=== PATIENT | female | born 1990 ===

== ENCOUNTER 2020-05-27 08:43 | Outpatient (REF) | payer SELFPAY | END 2020-05-27 08:44 | disposition home or self-care (01) | LOC: HO.LAB 08:43 | PROVIDERS: PCP Internal Medicine; Visit Provider Internal Medicine | DX: Z20.828 Contact with and (suspected) exposure to other viral communicable diseases (principal) | CPT/HCPCS: 87635 ==

== ENCOUNTER 2020-06-09 08:44 | Emergency (ER) | payer MEDICAID, SELFPAY ==
[2020-06-09 08:52] VITALS: BP 119/80; PULSE 84; RESP 16; TEMP 36.9; O2SAT 97; BMI 29.5
--- NOTE | 2020-06-09 09:09 | ED.NAVMDI ---
HPI - Nausea/Vomiting/Diarrhea General Chief complaint: Nausea/Vomiting/Diarrhea Stated complaint: covid + multiple complaints Time Seen by Provider: 06/09/20 08:50 Source: patient Mode of arrival: ambulatory Limitations: no limitations History of Present Illness HPI Narrative: 30 y/o female who was diagnosed with COVID-19 on 05/27 is presenting with 3 days of nausea and vomiting. She states when she was diagnosed with COVID she was feverish, coughing, short of breath and having muscle aches. It has now progressed to upset stomach and N/V for the last 3 days. Everyone else in the house is sick with various symptoms of COVID as well. She has been unable to tolerate food/drink by mouth for the last 2 days. She denies fevers, admits to chills and generalized weakness. MD elicited complaint: nausea and vomiting Onset (ago): day(s) (3) Description of vomiting: bilious Associated nausea: Yes Associated abdominal pain: Yes Location of pain: suprapubic Pain consistency: intermittent Severity: mild Quality: cramping Exacerbating factors: eating Relieving factors: none Context: sick contacts Associated symptoms: myalgias, fever/chills, headaches and weakness Treatment prior to arrival: none Related Data Previous Rx's Medication Instructions Recorded cephalexin [Keflex] 500 mg PO Q8H #15 cap 06/09/20 ondansetron HCl [Zofran] 4 mg PO Q8H PRN #30 tab 06/09/20 Allergies Allergy/AdvReac Type Severity Reaction Status Date / Time No Known Allergies Allergy Unverified 05/06/20 16:56 Review of Systems Review of Systems: Constitutional: No Fever, + Chills ENT/Mouth: No sore throat, No Rhinorrhea, No Swallowing Difficulty Eyes: No Eye Pain, No Swelling, No Redness Cardiovascular: No Chest Pain, No SOB, No Orthopnea, No Edema Respiratory: No Cough, No Sputum, No Wheezing, No dyspnea Gastrointestinal: + Nausea, + Vomiting, No Diarrhea, + abdominal Pain, No Hematochezia, No Melena Genitourinary: No Dysuria, No Urinary Frequency, No Hematuria Musculoskeletal: No joint pain, No Myalgias Skin: No Skin Lesions, No rash Neuro: + Weakness, No Numbness, No Dizziness, + Headache Psych: No Anxiety/Panic, No Depression Heme/Lymph: No Bruising, No Lymphadenopathy Endocrine: No Polyuria, No Polydipsia Gastrointestinal: Gastrointestinal: Reports nausea PMFSH Past Medical History Attestation statement: The following information was validated with the patient. Medical History (Updated 06/09/20 @ 10:04 by OLY Marrufo) Anemia Social History Social History Alcohol intake: unknown Smoking Status: Former smoker Use of substances other than those prescribed or required for medical reasons: Yes Substance Use Type: Marijuana Substance Use Frequency: Socially Last Used Substance: Days (ago) Advance Directives: No Advance Directives Information Provided: No Physical Exam Vital Signs: Vital Signs: Vital Signs Temp Pulse Resp BP Pulse Ox 06/09/20 09:33 78 H 06/09/20 08:52 98.4 F 84 16 119/80 97 Body Mass Index 29.5 Appearance: Alert. Oriented X3. No acute distress. Eyes: Pupils equal, round and reactive to light. ENT: Pharynx normal. Neck: Normal inspection. Neck supple. CVS: Normal heart rate and rhythm. Pulses normal. Respiratory: No respiratory distress. Breath sounds normal. Abdomen: Soft with mild lower abdominal tenderness, no rebound or guarding. normal +BS x4 Skin: Skin warm and dry. Normal skin color. Normal skin turgor. No rashes. Extremities: No lower extremity edema. Neuro: Oriented X 3. No motor deficit. No sensory deficit. Course Course Course Narrative: 30 y/o COVID positive patient with N/V x3 days, mild lower abdominal cramping. VSS and she appears well on arrival. Low suspicion for acute intra-abdominal pathology such as appendicitis or cholecystitis. She has not had her menses in ?6 weeks so she may be . Urine test pending as well as labs to assess for dehydration and electrolyte derangements. Reevaluation(s) Reevaluation #1: Urine test is positive with possible infection as well. Will treat with Keflex in the setting of positive . Patient informed of both - she is elated to be , she states she has a history of PCOS and has had difficulty conceiving since her 1st 11 years ago. She will follow up with OB and start taking vitamins. She feels improved after zofran and IVF. She is stable for discharge. MDM - Nausea/Vomiting/Diarrhea Lab Data Result diagrams: 06/09/20 09:20 06/09/20 09:20 Labs: Lab Results 06/09/20 06/09/20 06/09/20 Range/Units 09:08 09:08 09:20 WBC 8.9 (4.8-10.8) X10*3/uL RBC 4.83 (4.20-5.50) X10*6/uL Hgb 14.5 (12.0-16.0) g/dl Hct 42.0 (37-47) % MCV 87.0 (80-98) fL MCH 30.0 (27.0-33.0) pg MCHC 34.5 (31.0-35.0) g/dl RDW 11.6 (11.0-16.0) % Plt Count 252 (160-400) X10*3/uL MPV 9.8 (9.4-12.3) fL Immature Gran % (Auto) 0.6 H (0.0-0.4) % Neut % (Auto) 69.2 (45-73) % Lymph % (Auto) 23.3 (20-40) % [place] % (Auto) 5.7 (2-11) % Eos % (Auto) 0.8 (0-4) % Baso % (Auto) 0.4 (0-2) % Lymph # (Auto) 2.1 (1.2-4.9) X10*3/uL [place] # (Auto) 0.5 (0.1-1.2) X10*3/uL Eos # (Auto) 0.1 (0.0-0.4) X10*3/uL Baso # (Auto) 0.0 (0.0-0.2) X10*3/uL Abs Immat Gran (auto) 0.05 H (0.00-0.03) X10*3/uL Absolute Neuts (auto) 6.2 (2.0-8.3) X10*3/uL Absolute Nucleated RBC 0.000 (0.0-0.012) X10*3/uL Nucleated RBC % (auto) 0.0 (0.0-0.2) /100WBC Sodium (135-145) mmol/L Potassium (3.3-5.1) mmol/l Chloride (96-108) mmol/L Carbon Dioxide (22-29) mmol/L Anion Gap (12-20) BUN (9-16) mg/dL Creatinine (0.5-1.4) mg/dL Estim Creat Clear Calc Estimated GFR Random Glucose (60-115) mg/dL Calcium (8.4-10.2) mg/dL Total Bilirubin (0.0-1.0) mg/dL Direct Bilirubin (0.0-0.5) mg/dL AST (5-31) U/L ALT (0-31) U/L Alkaline Phosphatase (39-117) U/L Total Protein (6.5-8.0) g/dL Albumin (3.5-5.0) g/dL Lipase (8-78) U/L Urine Color YELLOW Urine Appearance CLOUDY Urine pH 8.5 H (5.0-8.0) Ur Specific [place] 1.015 (1.005-1.025) Urine Protein TRACE (NEG-TRACE) MG/DL Urine Glucose (UA) NEG (NEG) MG/DL Urine Ketones NEG (NEG) MG/DL Urine Blood NEG (NEG) Urine Nitrite NEG (NEG) Ur Leukocyte Esterase 3+ H (NEG) Urine RBC 0 (0) /HPF Urine WBC 15-29 H (0-4) /HPF Ur Squamous Epith Cells 3+ /LPF Amorphous Sediment 3+ /LPF Urine Bacteria NONE /LPF Urine Test POSITIVE H (NEGATIVE) 06/09/20 Range/Units 09:20 WBC (4.8-10.8) X10*3/uL RBC (4.20-5.50) X10*6/uL Hgb (12.0-16.0) g/dl Hct (37-47) % MCV (80-98) fL MCH (27.0-33.0) pg MCHC (31.0-35.0) g/dl RDW (11.0-16.0) % Plt Count (160-400) X10*3/uL MPV (9.4-12.3) fL Immature Gran % (Auto) (0.0-0.4) % Neut % (Auto) (45-73) % Lymph % (Auto) (20-40) % [place] % (Auto) (2-11) % Eos % (Auto) (0-4) % Baso % (Auto) (0-2) % Lymph # (Auto) (1.2-4.9) X10*3/uL [place] # (Auto) (0.1-1.2) X10*3/uL Eos # (Auto) (0.0-0.4) X10*3/uL Baso # (Auto) (0.0-0.2) X10*3/uL Abs Immat Gran (auto) (0.00-0.03) X10*3/uL Absolute Neuts (auto) (2.0-8.3) X10*3/uL Absolute Nucleated RBC (0.0-0.012) X10*3/uL Nucleated RBC % (auto) (0.0-0.2) /100WBC Sodium 136 (135-145) mmol/L Potassium 3.9 (3.3-5.1) mmol/l Chloride 104 (96-108) mmol/L Carbon Dioxide 25 (22-29) mmol/L Anion Gap 11 L (12-20) BUN 7 L (9-16) mg/dL Creatinine 0.68 (0.5-1.4) mg/dL Estim Creat Clear Calc 133.7 Estimated GFR > 60 Random Glucose 118 H (60-115) mg/dL Calcium 9.0 (8.4-10.2) mg/dL Total Bilirubin 1.9 H (0.0-1.0) mg/dL Direct Bilirubin 0.7 H (0.0-0.5) mg/dL AST 38 H (5-31) U/L ALT 68 H (0-31) U/L Alkaline Phosphatase 57 (39-117) U/L Total Protein 7.0 (6.5-8.0) g/dL Albumin 4.5 (3.5-5.0) g/dL Lipase 31 (8-78) U/L Urine Color Urine Appearance Urine pH (5.0-8.0) Ur Specific [place] (1.005-1.025) Urine Protein (NEG-TRACE) MG/DL Urine Glucose (UA) (NEG) MG/DL Urine Ketones (NEG) MG/DL Urine Blood (NEG) Urine Nitrite (NEG) Ur Leukocyte Esterase (NEG) Urine RBC (0) /HPF Urine WBC (0-4) /HPF Ur Squamous Epith Cells /LPF Amorphous Sediment /LPF Urine Bacteria /LPF Urine Test (NEGATIVE) Discharge Plan Discharge Clinical Impression: Nausea and vomiting during Qualifiers: Weeks of gestation: unspecified Qualified Code(s): Z34.90 - Encounter for supervision of normal , unspecified, unspecified trimester UTI (urinary tract infection) Qualifiers: Urinary tract infection type: acute cystitis Hematuria presence: without hematuria Qualified Code(s): N30.00 - Acute cystitis without hematuria Patient Disposition: Home, Self-Care Instructions: Nausea and Vomiting in (ED), Urinary Tract Infection in (ED) Additional Instructions: Your test was positive today. You need to follow up with [facility]. Start taking vitamins. Your urine test also showed possible urinary tract infection so we started you on antibiotics for this. If you develop burning urination, urinary frequency or fevers despite antibiotics come back to the ER. If you are unable to tolerate food or drink by mouth due to persistent nausea and vomiting call 911 or come back to the ER for further evaluation. Prescriptions: New ondansetron HCl [Zofran] 4 mg tablet 4 mg PO Q8H PRN (Reason: nausea and vomiting) Qty: 30 RF: 0 cephalexin [Keflex] 500 mg capsule 500 mg PO Q8H Qty: 15 RF: 0 Referrals: Hernandez Thomas MD [Physician] - 1 week
[2020-06-09] MEDS: 0.9 % Sodium Chloride 1,000 ML 999 ML IVCONT (09:19)
[2020-06-09 09:26] LABS: MANUAL DIFF FLAG NO
[2020-06-09] MEDS: ondansetron HCL 4 MG/2 ML VIAL IVPUSH (09:26)
[2020-06-09 09:33] VITALS: RESP 78
[2020-06-09 09:33] LABS: Basophils Percent Auto 0.4 % (0-2); Eosinophils Absolute Auto 0.1 X10*3/uL (0.0-0.4); Eosinophils Percent Auto 0.8 % (0-4); Hemoglobin 14.5 g/dl (12.0-16.0); Imm Gran Abs Auto 0.05 X10*3/uL (0.00-0.03); Imm Gran Pct Auto 0.6 % (0.0-0.4); Lymphocytes Absolute Auto 2.1 X10*3/uL (1.2-4.9); Lymphocytes Percent Auto 23.3 % (20-40); Mean Corpuscular HGB Conc 34.5 g/dl (31.0-35.0); Mean Platelet Volume 9.8 fL (9.4-12.3); Monocytes Absolute Auto 0.5 X10*3/uL (0.1-1.2); Monocytes Percent Auto 5.7 % (2-11); Neutrophils Absolute Auto 6.2 X10*3/uL (2.0-8.3); Neutrophils Percent Auto 69.2 % (45-73); Platelet Count 252 X10*3/uL (160-400); Red Blood Count 4.83 X10*6/uL (4.20-5.50); Red Cell Distribution Width 11.6 % (11.0-16.0); White Blood Count 8.9 X10*3/uL (4.8-10.8)
[2020-06-09 09:39] LABS: Glucose Urine UA NEG (NEG); Leukocyte Esterase Urine 3+ (NEG); Nitrite Urine NEG (NEG); PH 8.5 (5.0-8.0); Specific Gravity - Urine 1.015 (1.005-1.025); UPreg QC Valid YES; Urine Blood NEG (NEG); Urine Ketones NEG (NEG); Urine Pregnancy POSITIVE (NEGATIVE); Urine Protein TRACE MG/DL (NEG-TRACE)
[2020-06-09 09:40] LABS: Appearance Urine CLOUDY; Color Urine YELLOW
[2020-06-09 09:46] LABS: RBC Urine 0 /HPF (0); Squamous Epithelial Cell Urine 3+ /LPF
[2020-06-09 09:47] LABS: Amorphous Sediment Urine 3+ /LPF
[2020-06-09 09:54] LABS: Alanine Aminotransferase 68 U/L (0-31); Albumin Level 4.5 g/dL (3.5-5.0); Alkaline Phosphatase 57 U/L (39-117); Anion Gap 11 (12-20); Aspartate Amino Transferase 38 U/L (5-31); Bilirubin Direct 0.7 mg/dL (0.0-0.5); Bilirubin Total 1.9 mg/dL (0.0-1.0); Blood Urea Nitrogen 7 mg/dL (9-16); Carbon Dioxide 25 mmol/L (22-29); Chloride 104 mmol/L (96-108); Creatinine Clr Calc Pharmacy 133.7; Estimated Glomerular Filt Rate > 60; Glucose Random 118 mg/dL (60-115); Lipase 31 U/L (8-78); Potassium 3.9 mmol/l (3.3-5.1); Sodium 136 mmol/L (135-145)
--- NOTE | 2020-06-09 09:57 | PC.NURSE ---
NO ACTIVE VOMITING, IV FLUIDS INFUSING PT UCG WAS + PT IS AWARE
--- NOTE | 2020-06-09 10:31 | PC.NURSE ---
iv fluids complete po challenge
--- NOTE | 2020-06-09 10:54 | PC.NURSE ---
TOLERATED PO INTAKE WITH SOME NAUSEA NO VOMITING
--- NOTE | 2020-06-09 10:57 | PC.NURSE ---
PT TOLERATED PO CHALLENGE WITH MILD NAUSEA PLAN IS FOR DISCHARGE FOLLOW UP WITH OB
== END 2020-06-09 11:12 | disposition home or self-care (01) ==
PROVIDERS: Physician Assistant; Emergency Provider Emergency Medicine; PCP Internal Medicine
DX: O23.41 Unspecified infection of urinary tract in pregnancy, first trimester (principal); O99.320 Drug use complicating pregnancy, unspecified trimester; F12.90 Cannabis use, unspecified, uncomplicated; Z3A.00 Weeks of gestation of pregnancy not specified; Z86.19 Personal history of other infectious and parasitic diseases; Z79.899 Other long term (current) drug therapy
CPT/HCPCS: 36415; 80048; 80076; 81001; 81025; 83690; 85025; 87086; 96361; 96374; 96375; 99284; J1885; J2405

== ENCOUNTER 2020-06-10 20:15 | Emergency (ER) | payer MEDICAID, SELFPAY ==
[2020-06-10 21:26] VITALS: BP 134/90; PULSE 77; RESP 18; TEMP 36.6; O2SAT 98; BMI 29.7
[2020-06-10 21:29] VITALS: BP 134/90; PULSE 80; RESP 18; TEMP 36.6; O2SAT 98
--- NOTE | 2020-06-10 21:43 | US_ITS ---
EXAMINATION: ULTRASOUND FIRST TRIMESTER CLINICAL INFORMATION: Pain. Concern for ectopic . COMPARISON: None. TECHNIQUE: Transabdominal and transvaginal imaging of the pelvis was performed. Transvaginal imaging was performed for further evaluation of the endometrium and adnexa. FINDINGS: The uterus measures 7.4 x 4.1 x 4.9 cm. An intrauterine gestational sac is identified with a mean sac diameter of 15 mm corresponding to 6 weeks 2 days. There is a faint decidual reaction identified. No pole is identified. There is no demonstrable yolk sac. heart rate is not identified. Both ovaries are of normal size and echogenicity. The right measures 2.9 x 2.4 x 2.3 cm. The left measures 3.3 x 2.8 x 3.5 cm. This measurement includes an approximately 16 mm corpus luteum. There is no pelvic free fluid. US/US OB <= 14 weeks fetus IMPRESSION: There is an intrauterine gestational sac with a faint decidual reaction. There is no pole or yolk sac. A pole is typically identified at this gestational sac size. As such, this raises the possibility of a missed , though continued follow-up and correlation with beta hCG is warranted. No adnexal mass lesions. No suspicion for ectopic .
[2020-06-10] MEDS: 0.9 % Sodium Chloride 500 ML 999 ML IVCONT ×2 (22:00)
[2020-06-10] MEDS: ondansetron HCL 4 MG/2 ML VIAL IVPUSH (22:00)
[2020-06-10 22:02] LABS: Basophils Absolute Auto 0.1 X10*3/uL (0.0-0.2); Basophils Percent Auto 0.7 % (0-2); Eosinophils Absolute Auto 0.1 X10*3/uL (0.0-0.4); Eosinophils Percent Auto 0.5 % (0-4); Hematocrit 41.1 % (37-47); Hemoglobin 14.3 g/dl (12.0-16.0); Imm Gran Abs Auto 0.04 X10*3/uL (0.00-0.03); Imm Gran Pct Auto 0.3 % (0.0-0.4); Lymphocytes Absolute Auto 2.9 X10*3/uL (1.2-4.9); Lymphocytes Percent Auto 22.9 % (20-40); MANUAL DIFF FLAG NO; Mean Corpuscular HGB Conc 34.8 g/dl (31.0-35.0); Mean Corpuscular Hemoglobin 30.3 pg (27.0-33.0); Mean Corpuscular Volume 87.1 fL (80-98); Mean Platelet Volume 9.9 fL (9.4-12.3); Monocytes Absolute Auto 0.8 X10*3/uL (0.1-1.2); Monocytes Percent Auto 6.6 % (2-11); Neutrophils Absolute Auto 8.7 X10*3/uL (2.0-8.3); Platelet Count 254 X10*3/uL (160-400); Red Blood Count 4.72 X10*6/uL (4.20-5.50); Red Cell Distribution Width 11.5 % (11.0-16.0); White Blood Count 12.6 X10*3/uL (4.8-10.8)
[2020-06-10 22:26] LABS: Alanine Aminotransferase 53 U/L (0-31); Albumin Level 4.5 g/dL (3.5-5.0); Alkaline Phosphatase 54 U/L (39-117); Anion Gap 14 (12-20); Aspartate Amino Transferase 27 U/L (5-31); Bilirubin Direct 0.6 mg/dL (0.0-0.5); Bilirubin Total 1.6 mg/dL (0.0-1.0); Blood Urea Nitrogen 8 mg/dL (9-16); Calcium 9.1 mg/dL (8.4-10.2); Carbon Dioxide 24 mmol/L (22-29); Chloride 104 mmol/L (96-108); Creatinine Clr Calc Pharmacy 138.1; Estimated Glomerular Filt Rate > 60; Glucose Random 99 mg/dL (60-115); Lipase 13 U/L (8-78); Potassium 3.8 mmol/l (3.3-5.1); Sodium 138 mmol/L (135-145); Total Protein 6.9 g/dL (6.5-8.0)
--- NOTE | 2020-06-10 22:50 | US_ITS ---
EXAMINATION: ULTRASOUND FIRST TRIMESTER CLINICAL INFORMATION: Pain. Concern for ectopic . COMPARISON: None. TECHNIQUE: Transabdominal and transvaginal imaging of the pelvis was performed. Transvaginal imaging was performed for further evaluation of the endometrium and adnexa. FINDINGS: The uterus measures 7.4 x 4.1 x 4.9 cm. An intrauterine gestational sac is identified with a mean sac diameter of 15 mm corresponding to 6 weeks 2 days. There is a faint decidual reaction identified. No pole is identified. There is no demonstrable yolk sac. heart rate is not identified. Both ovaries are of normal size and echogenicity. The right measures 2.9 x 2.4 x 2.3 cm. The left measures 3.3 x 2.8 x 3.5 cm. This measurement includes an approximately 16 mm corpus luteum. There is no pelvic free fluid. US/US OB transvaginal IMPRESSION: There is an intrauterine gestational sac with a faint decidual reaction. There is no pole or yolk sac. A pole is typically identified at this gestational sac size. As such, this raises the possibility of a missed , though continued follow-up and correlation with beta hCG is warranted. No adnexal mass lesions. No suspicion for ectopic .
[2020-06-10 22:55] LABS: HCG Quantitative 20758 mIU/mL
[2020-06-10 23:18] LABS: Glucose Urine UA NEG (NEG); Leukocyte Esterase Urine 3+ (NEG); Nitrite Urine NEG (NEG); PH 6.5 (5.0-8.0); Specific Gravity - Urine 1.015 (1.005-1.025); Urine Blood NEG (NEG); Urine Ketones 40 MG/DL (NEG); Urine Protein NEG (NEG-TRACE)
[2020-06-10 23:49] LABS: Appearance Urine CLEAR; Color Urine YELLOW
--- NOTE | 2020-06-10 23:49 | ED_ITS ---
HPI - Abdominal Pain General Chief Complaint: Abdominal Pain Stated Complaint: ABD PAIN Time Seen by Provider: 06/10/20 21:42 Source: patient Mode of arrival: ambulatory Limitations: no limitations History of Present Illness HPI narrative: a 30-year-old female recently diagnosed with unknown LMP, patient presented with left lower abdominal pain time 1 day, declined any vaginal bleed or discharge, patient also is complaining of nausea and vomiting. Patient described the pain as constant since morning, patient do not radiate anywhere else, nothing improves the pain or make it worse, pain is associated with nausea and vomiting but no vaginal bleed, patient rated the pain as 7/10. Related Data Previous Rx's Medication Instructions Recorded cephalexin [Keflex] 500 mg PO Q8H #15 cap 06/09/20 ondansetron HCl [Zofran] 4 mg PO Q8H PRN #30 tab 06/09/20 Allergies Allergy/AdvReac Type Severity Reaction Status Date / Time No Known Allergies Allergy Unverified 05/06/20 16:56 Review of Systems Review of Systems all other systems are reviewed and are negative Constitutional: Reports as per HPI and Reports no additional constitutional complaints Eyes: Reports as per HPI and Reports no additional eye complaints Reports system reviewed and no additional complaints, except as documented Cardiovascular: Reports as per HPI and Reports no additional cardiovascular complaints Respiratory: Reports as per HPI and Reports no additional respiratory complaints Gastrointestinal: Reports as per HPI and Reports no additional gastrointestinal complaints Genitourinary: Reports no additional female genitourinary complaints Musculoskeletal: Reports no additional musculoskeletal complaints Skin/Breast: Reports system reviewed and no additional complaints, except as docu Psychiatric: Reports no additional psychiatric complaints Endocrine: Reports no additional endocrine complaints Hematologic/Lymphatic: Reports no additional hematologic/lymphatic complaints Allergic/Immunologic: Reports no additional allergic/immunologic complaints Reports system reviewed and no additional complaints, except as documented and Reports Abnormal speech present Physical Exam Vital Signs: Vital Signs: Vital Signs Temp Pulse Resp BP Pulse Ox 06/10/20 21:29 98 F 80 18 134/90 H 98 06/10/20 21:26 98 F 77 18 134/90 H 98 Body Mass Index 29.7 vital signs have been reviewed as normal and appeared to be correct. Blood pressure normal. Heart rate normal. Respiration rate normal. Temperature normal. Oxygen saturation normal. Appearance: Alert. Oriented X3. No acute distress. Head: Normal external exam. Normocephalic. Atraumatic. No Pleitez signs noted. No raccoon eyes noted Eyes: PERRLA. EOMI. Conjunctiva and sclera normal. Eyelids normal. ENT: EAC normal. TM's Normal. Pharynx normal. Uvula midline. Moist mucous membranes. No trismus noted. No drooling noted. No muffled voice noted. Neck: Normal inspection. Neck supple. FROM. No adenopathy. Thyroid Normal. No meningeal signs. No neck mass noted. CVS: Normal heart rate and rhythm. Heart sound normal. No murmurs noted. Pulses normal throughout. Respiratory: No respiratory distress. Painless inspiration. Breath sounds normal. No wheezes/rales/rhonchi noted. Chest nontender. No accessory muscle usage noted or decreased air movement noted. Abdomen: Soft, tenderness localized to the left lower area, voluntary guarding. Bowel sounds normal in all 4 quadrants. No distention noted. No organomegaly noted. No visible injury noted. Back: No CVA tenderness. Full range of motion noted. Skin: Skin warm and dry. Normal skin color. Normal skin turgor. No rashes/lesions/lacerations noted. Extremities: No lower extremity edema. Extremities exhibit normal range of motion. Extremities nontender. Neuro: Oriented X 3. No motor deficit. No sensory deficit. Reflexes normal. Course Course Course Narrative: 30-year-old female , in her early ( recently diagnosed in the emergency department), unknown gestational age. Presented with left lower abdominal pain with no vaginal bleed. Will do workup to rule out ectopic , IV fluids and vomiting control. MDM - Abdominal Pain MDM Narrative Medical decision making narrative: Assessment and plan. 30-year-old female presented with left lower abdominal pain and nausea and vomiting. ultrasound with MT gestational sac which could be too early in the versus missed . Patient was advised to follow-up with her back facer for serial HCG determine, patient is able to tolerate p.o. intake. Patient was diagnosed with UTI yesterday patient never picked up the antibiotic ( Keflex) from the pharmacy, patient will meat pickler the antibiotic from pharmacy today. Patient was instructed to drink plenty of fluids also and follow up with her back facer for serial HCG. Repeat abdominal exam improved lower abdominal tenderness, patient appeared more comfortable, on her cell phone appear in no distress. Lab Data Attestation: I reviewed the patient's lab results. Result diagrams: 06/10/20 21:57 06/10/20 21:57 Labs: Lab Results 06/10/20 06/10/20 06/10/20 Range/Units 21:57 21:57 21:57 WBC 12.6 H (4.8-10.8) X10*3/uL RBC 4.72 (4.20-5.50) X10*6/uL Hgb 14.3 (12.0-16.0) g/dl Hct 41.1 (37-47) % MCV 87.1 (80-98) fL MCH 30.3 (27.0-33.0) pg MCHC 34.8 (31.0-35.0) g/dl RDW 11.5 (11.0-16.0) % Plt Count 254 (160-400) X10*3/uL MPV 9.9 (9.4-12.3) fL Immature Gran % (Auto) 0.3 (0.0-0.4) % Neut % (Auto) 69.0 (45-73) % Lymph % (Auto) 22.9 (20-40) % [place] % (Auto) 6.6 (2-11) % Eos % (Auto) 0.5 (0-4) % Baso % (Auto) 0.7 (0-2) % Lymph # (Auto) 2.9 (1.2-4.9) X10*3/uL [place] # (Auto) 0.8 (0.1-1.2) X10*3/uL Eos # (Auto) 0.1 (0.0-0.4) X10*3/uL Baso # (Auto) 0.1 (0.0-0.2) X10*3/uL Abs Immat Gran (auto) 0.04 H (0.00-0.03) X10*3/uL Absolute Neuts (auto) 8.7 H (2.0-8.3) X10*3/uL Absolute Nucleated RBC 0.000 (0.0-0.012) X10*3/uL Nucleated RBC % (auto) 0.0 (0.0-0.2) /100WBC Sodium 138 (135-145) mmol/L Potassium 3.8 (3.3-5.1) mmol/l Chloride 104 (96-108) mmol/L Carbon Dioxide 24 (22-29) mmol/L Anion Gap 14 (12-20) BUN 8 L (9-16) mg/dL Creatinine 0.66 (0.5-1.4) mg/dL Estim Creat Clear Calc 138.1 Estimated GFR > 60 Random Glucose 99 (60-115) mg/dL Calcium 9.1 (8.4-10.2) mg/dL Total Bilirubin 1.6 H (0.0-1.0) mg/dL Direct Bilirubin 0.6 H (0.0-0.5) mg/dL AST 27 (5-31) U/L ALT 53 H (0-31) U/L Alkaline Phosphatase 54 (39-117) U/L Total Protein 6.9 (6.5-8.0) g/dL Albumin 4.5 (3.5-5.0) g/dL Lipase 13 (8-78) U/L Beta HCG, Quant 94045 mIU/mL Blood Type B Positive Imaging Data Ob ultrasound: Radiologist's impression: There is an intrauterine gestational sac with a faint decidual reaction. There is no pole or yolk sac. A pole is typically identified at this gestational sac size. As such, this raises the possibility of a missed , though continued follow-up and correlation with beta hCG is warranted. No adnexal mass lesions. No suspicion for ectopic . Discharge Plan Discharge Clinical Impression: Persistent hyperemesis vomiting, arising during Abdominal pain during Qualifiers: Trimester: first trimester Qualified Code(s): O26.891 - Other specified pregn citlaly related conditions, first trimester Patient Disposition: Home, Self-Care Instructions: Abdominal Pain in (ED) Additional Instructions: follow-up with your OBGYN as scheduled in a few days to recheck your serum HCG. Please meat pickler your antibiotic prescription from the pharmacy. Prescriptions: No Action ondansetron HCl [Zofran] 4 mg tablet 4 mg PO Q8H PRN (Reason: nausea and vomiting) Qty: 30 RF: 0 cephalexin [Keflex] 500 mg capsule 500 mg PO Q8H Qty: 15 RF: 0 Referrals: Venkata Atkinson MD [Primary Care Provider] - 2 days [facility] Past Medical History Medical History Anemia Social History Social History Alcohol intake: never Smoking Status: Never smoker Use of substances other than those prescribed or required for medical reasons: No Substance Use Type: Marijuana Advance Directives: No Advance Directives Information Provided: Yes
[2020-06-10 23:52] LABS: Bacteria Urine 1+ /LPF; Mucus Urine 1+ /LPF; RBC Urine 0-2 /HPF (0); Squamous Epithelial Cell Urine 2+ /LPF; WBC Urine 30-49 /HPF (0-4)
== END 2020-06-11 00:52 | disposition home or self-care (01) ==
PROVIDERS: Emergency Provider Emergency Medicine; PCP Internal Medicine
DX: O21.0 Mild hyperemesis gravidarum (principal); Z3A.00 Weeks of gestation of pregnancy not specified
CPT/HCPCS: 36415; 76801; 76817; 80048; 80076; 81001; 83690; 84702; 85025; 86900; 86901; 96374; 99284; J2405

== ENCOUNTER 2020-06-15 09:01 | Outpatient (REF) | payer OTHER, SELFPAY | END 2020-06-15 09:02 | disposition home or self-care (01) | LOC: HO.LAB 09:01 | PROVIDERS: PCP Internal Medicine; Visit Provider Advanced Practice Midwife | DX: O20.0 Threatened abortion (principal); Z3A.00 Weeks of gestation of pregnancy not specified | CPT/HCPCS: 84702; 99211 ==

== ENCOUNTER 2020-06-17 10:41 | Outpatient (REF) | payer OTHER, SELFPAY ==
--- NOTE | 2020-06-17 11:00 | US_ITS ---
EXAMINATION: US OBSTETRICAL ULTRASOUND CLINICAL INFORMATION: Threatened . COMPARISON: Obstetrical ultrasound 06/10/2020. LMP: Unknown/uncertain. TECHNIQUE: Ultrasound of the maternal pelvis is performed using transabdominal and transvaginal transducers. Transvaginal imaging is performed due to inadequate visualization transabdominally. M-mode Doppler is also performed. FINDINGS: There is a single intrauterine gestational sac with visible yolk sac, embryo/fetus, and cardiac activity. There is no significant subchorionic hemorrhage or hematoma. HR: 111 beats per minute. CRL (crown rump length): 0.51 cm (6 weeks 2 days +/- 4 days). JOSH (estimated date of delivery): 02/08/2021 +/- 4 days. MATERNAL ADNEXA: The right maternal ovary measures 3.3 x 1.8 x 2.8 cm. The left maternal ovary measures 3.8 x 2.1 x 3.3 cm. There is small complex corpus luteum within the left ovary measuring only 1.2 cm in diameter. No maternal pelvic ascites. US/US OB transvaginal IMPRESSION: 1. Single intrauterine gestation with ultrasound gestational age of 6 weeks 2 days +/- 4 days. 2. Estimated date of delivery is 02/08/2021 +/- 4 days. 3. No subchorionic hemorrhage or hematoma. 4. Small left maternal corpus luteum 1.2 cm. No maternal pelvic ascites.
--- NOTE | 2020-06-17 11:00 | US_ITS ---
EXAMINATION: US OBSTETRICAL ULTRASOUND CLINICAL INFORMATION: Threatened . COMPARISON: Obstetrical ultrasound 06/10/2020. LMP: Unknown/uncertain. TECHNIQUE: Ultrasound of the maternal pelvis is performed using transabdominal and transvaginal transducers. Transvaginal imaging is performed due to inadequate visualization transabdominally. M-mode Doppler is also performed. FINDINGS: There is a single intrauterine gestational sac with visible yolk sac, embryo/fetus, and cardiac activity. There is no significant subchorionic hemorrhage or hematoma. HR: 111 beats per minute. CRL (crown rump length): 0.51 cm (6 weeks 2 days +/- 4 days). JOSH (estimated date of delivery): 02/08/2021 +/- 4 days. MATERNAL ADNEXA: The right maternal ovary measures 3.3 x 1.8 x 2.8 cm. The left maternal ovary measures 3.8 x 2.1 x 3.3 cm. There is small complex corpus luteum within the left ovary measuring only 1.2 cm in diameter. No maternal pelvic ascites. US/US OB <= 14 weeks fetus IMPRESSION: 1. Single intrauterine gestation with ultrasound gestational age of 6 weeks 2 days +/- 4 days. 2. Estimated date of delivery is 02/08/2021 +/- 4 days. 3. No subchorionic hemorrhage or hematoma. 4. Small left maternal corpus luteum 1.2 cm. No maternal pelvic ascites.
== END 2020-06-17 10:42 | disposition home or self-care (01) ==
LOC: HO.US 10:41
PROVIDERS: PCP Internal Medicine; Visit Provider Advanced Practice Midwife
DX: O20.0 Threatened abortion (principal); O21.9 Vomiting of pregnancy, unspecified; Z3A.01 Less than 8 weeks gestation of pregnancy
CPT/HCPCS: 76801; 76817; 99212

== ENCOUNTER → 2020-06-28 14:29 | Outpatient (BNVA) | payer OTHER, SELFPAY | PROVIDERS: Visit Provider Advanced Practice Midwife | DX: Z76.89 Persons encountering health services in other specified circumstances (principal) ==

== ENCOUNTER 2020-06-28 15:33 | Outpatient (REF) | payer OTHER, SELFPAY ==
--- NOTE | 2020-06-28 15:36 | US_ITS ---
EXAMINATION: LIMITED OB ULTRASOUND CLINICAL INFORMATION: Hemorrhage. Threatened . COMPARISON: Previous exams June 10 and 06/17/2020 TECHNIQUE: Transabdominal first trimester OB ultrasound FINDINGS: The uterus is normal in size and shape. There is an intrauterine gestational sac. [place]-rump length measures 1.8 cm suggesting gestational age of 8 weeks 2 days with estimated date of delivery of 01/26/2021. heart rate is 161 bpm. There is a yolk sac. The maternal ovaries are normal. There is no fluid in the maternal pelvis. US/US OB limited IMPRESSION: Single viable intrauterine . From today's measurements, gestational age is estimated at 8 weeks 2 days with estimated date of delivery of 02/05/2021.
== END 2020-06-28 15:34 | disposition home or self-care (01) ==
LOC: HO.US 15:33
PROVIDERS: Visit Provider Advanced Practice Midwife
DX: O20.9 Hemorrhage in early pregnancy, unspecified (principal)
CPT/HCPCS: 76815; 99212

== ENCOUNTER → 2020-07-08 09:25 | Outpatient (BNVA) | payer OTHER, SELFPAY | PROVIDERS: Visit Provider Advanced Practice Midwife | DX: Z76.89 Persons encountering health services in other specified circumstances (principal) ==

== ENCOUNTER → 2020-07-09 10:09 | Outpatient (BNVA) | payer OTHER, SELFPAY | PROVIDERS: Visit Provider Advanced Practice Midwife | DX: Z76.89 Persons encountering health services in other specified circumstances (principal) ==

== ENCOUNTER 2020-07-29 13:01 | Outpatient (REF) | payer OTHER, SELFPAY ==
[2020-08-27 15:19] LABS: CT PCR NOT DETECTED (Not Detect.); NG PCR NOT DETECTED (Not Detect.)
== END 2020-07-29 13:02 | disposition home or self-care (01) ==
LOC: HO.LAB 13:01
PROVIDERS: PCP Internal Medicine; Visit Provider Advanced Practice Midwife
DX: O20.9 Hemorrhage in early pregnancy, unspecified (principal); O26.891 Other specified pregnancy related conditions, first trimester; N93.0 Postcoital and contact bleeding; Z3A.12 12 weeks gestation of pregnancy; Z23 Encounter for immunization; Z86.19 Personal history of other infectious and parasitic diseases
CPT/HCPCS: 87491; 87591; 90686

== ENCOUNTER 2020-07-30 14:01 | Outpatient (REF) | payer OTHER, SELFPAY ==
--- NOTE | 2020-07-30 14:08 | US_ITS ---
EXAMINATION: OBSTETRICAL ULTRASOUND, FIRST TRIMESTER HISTORY: 31-year-old at 12.3 weeks of gestation NT screening COMPARISON: 06/28/2020 TECHNIQUE: Real time transabdominal imaging with color and M-mode Doppler. FINDINGS: A single, live IUP CRL of 71.6 mm c/w 13.3wks is noted. Heart Rate: 150 beats per minute. Normal yolk sac seen. NT was 1.74.mm. NB Present The embryo appears sonographically wnl for this GA. Both maternal ovaries are seen and appear normal. GESTATIONAL AGE: 1. Established GA: 12.3 wks 2. GA from [facility]: 13.3 wks ESTIMATED DATE OF DELIVERY: 1. Established JOSH: 02/08/2021 2. JOSH from [facility]: 02/01/2022 US/US OB 1T nuc measure IMPRESSION: 1. A single live IUP 2. Size equals dates 3. NT of 1.74 mm MFM Consultation: I reviewed the ultrasound findings along with significance of NT measurement. The NT of less than 3mm is generally reassuring. However, the sensitivity for T21 detection is only 60%. I reviewed the availability of serum aneuploidy screening which includes cell-free DNA and placental protein based tests. I discussed the sensitivity, false-positive rate, and other limitations associated with each test. I also reviewed the availability of invasive diagnostic tests that are associated small but definite risk of miscarriage. We also reviewed the differences between screening tests and diagnostic tests. After our discussion, she opted for the First trimester screening that is based on cell-free DNA or non-invasive testing (NIPT). She had first trimester vaginal spotting which has subsided. Denies cramping or leakage of fluid. A follow up at 18 weeks for survey has been scheduled. Thank you very much for this referral. Majority of this visit was spent reviewing her care and counselling her in face to face time: Time spent 20 min.
== END 2020-07-30 14:02 | disposition home or self-care (01) ==
LOC: HO.US 14:01
PROVIDERS: PCP Internal Medicine; Visit Provider Advanced Practice Midwife
DX: Z34.90 Encounter for supervision of normal pregnancy, unspecified, unspecified trimester (principal); Z36.82 Encounter for antenatal screening for nuchal translucency
CPT/HCPCS: 76813

== ENCOUNTER 2020-08-10 14:59 | Outpatient (REF) | payer OTHER, SELFPAY ==
--- NOTE | 2020-08-10 15:10 | US_ITS ---
EXAMINATION: US DIAGNOSTIC ULTRASOUND BREAST, LEFT CLINICAL INFORMATION: 30-year-old with olive-size palpable mass noted for several weeks upper outer left breast. Patient approximately 14 weeks gestation. No prior breast imaging. No known family history breast cancer. Tyrer-Cuzick lifetime risk score for breast cancer is 9%. COMPARISON: None. TECHNIQUE: Ultrasound left breast is targeted to the area of clinical concern. Patient is able to point to the area at time of imaging. Grayscale imaging and color Doppler are performed without and with harmonics. FINDINGS: There is no focal suspicious finding. There is no solid mass, architectural abnormality, duct ectasia, or edema in the soft tissue planes. There are 2 small cysts medial to area of palpable concern left periareolar region, each approximately 5 mm. Results are discussed with the patient at time of visit. US/US breast LT limited IMPRESSION: 1. Two small cysts medial to the area of palpable concern left periareolar region, each around 5 mm. 2. Otherwise, unremarkable targeted left breast ultrasound. ASSESSMENT: BI-RADS 2: Benign RECOMMENDATION: Patient should be managed based on the clinical impression. If clinically indicated, further evaluation may be considered with surgical consult. Decision to proceed with biopsy should be based on clinical grounds and degree of clinical concern.
== END 2020-08-10 15:00 | disposition home or self-care (01) ==
LOC: HO.MAMMO 14:59
PROVIDERS: PCP Internal Medicine; Visit Provider Advanced Practice Midwife
DX: N63.21 Unspecified lump in the left breast, upper outer quadrant (principal)
CPT/HCPCS: 76642

== ENCOUNTER 2020-08-26 14:31 | Outpatient (REF) | payer OTHER, SELFPAY ==
[2020-08-28 13:52] LABS: C. trachomatis RNA TMA NOT DETECTED (NOT DETECTED); N. gonorrhoeae RNA TMA NOT DETECTED (NOT DETECTED)
== END 2020-08-26 14:32 | disposition home or self-care (01) ==
LOC: HO.LAB 14:31
PROVIDERS: PCP Internal Medicine; Visit Provider Advanced Practice Midwife
DX: Z34.92 Encounter for supervision of normal pregnancy, unspecified, second trimester (principal); Z86.19 Personal history of other infectious and parasitic diseases
CPT/HCPCS: 36415; 81003; 87491; 87591; 99212

== ENCOUNTER 2020-08-28 09:09 | Outpatient (REF) | payer OTHER, SELFPAY ==
[2020-08-28 11:05] LABS: Basophils Absolute Auto 0.1 X10*3/uL (0.0-0.2); Basophils Percent Auto 0.5 % (0-2); Eosinophils Absolute Auto 0.1 X10*3/uL (0.0-0.4); Eosinophils Percent Auto 0.9 % (0-4); Hematocrit 33.7 % (37-47); Hemoglobin 11.7 g/dl (12.0-16.0); Imm Gran Abs Auto 0.06 X10*3/uL (0.00-0.03); Imm Gran Pct Auto 0.5 % (0.0-0.4); Lymphocytes Absolute Auto 1.9 X10*3/uL (1.2-4.9); Lymphocytes Percent Auto 16.1 % (20-40); MANUAL DIFF FLAG NO; Mean Corpuscular HGB Conc 34.7 g/dl (31.0-35.0); Mean Corpuscular Hemoglobin 30.5 pg (27.0-33.0); Monocytes Absolute Auto 0.5 X10*3/uL (0.1-1.2); Monocytes Percent Auto 4.1 % (2-11); Neutrophils Percent Auto 77.9 % (45-73); Platelet Count 200 X10*3/uL (160-400); Red Blood Count 3.83 X10*6/uL (4.20-5.50); Red Cell Distribution Width 11.9 % (11.0-16.0); White Blood Count 11.5 X10*3/uL (4.8-10.8)
[2020-08-28 11:22] LABS: Glucose 1 Hour PP 50gm Dose 154 mg/dL (60-140)
[2020-08-28 11:45] LABS: Amphetamine Screen Urine Not Detected (Not Detect); Barbiturates, Urine Not Detected (Not Detect); Benzodiazepines Screen Urine Not Detected (Not Detect); Cannabinoid Screen Urine Not Detected (Not Detect); Cocaine Screen Urine Not Detected (Not Detect); Opiate Screen Urine Not Detected (Not Detect); Phencyclidine Screen Urine Not Detected (Not Detect)
[2020-08-28 11:47] LABS: Thyroid Stimulating Hormone 0.87 uIU/mL (0.32-4.0)
[2020-08-29 05:22] LABS: Rubella IgG Antibody 1.21 Index
[2020-08-29 10:46] LABS: CT PCR NOT DETECTED (Not Detect.); NG PCR NOT DETECTED (Not Detect.)
[2020-08-30 04:07] LABS: HIV AB/AG Nonreactive (Nonreactive); HIV Num 1 0.12 S/CO (0.00-0.99); ~HepC Num1 0.05 S/CO (0.00-0.79); ~Hepatitis C Antibody Nonreactive (Nonreactive)
[2020-08-30 04:22] LABS: HBsAGNum1 0.21 S/CO (0.00-0.99); Hepatitis B Surface Antigen Negative (Negative)
== END 2020-08-28 09:10 | disposition home or self-care (01) ==
LOC: HO.LAB 09:09
PROVIDERS: Absent Provider Advanced Practice Midwife; PCP Internal Medicine; Visit Provider Advanced Practice Midwife
DX: Z34.92 Encounter for supervision of normal pregnancy, unspecified, second trimester (principal)
CPT/HCPCS: 80307; 84443; 85025; 86762; 86787; 86803; 86850; 86900; 86901; 87086; 87340; 87389; 87491; 87591

== ENCOUNTER 2020-09-01 07:53 | Outpatient (REF) | payer OTHER, SELFPAY ==
[2020-09-01 09:38] LABS: Glucose Fasting 84 mg/dL (60-99)
[2020-09-01 10:34] LABS: Glucose 1 Hour 153 mg/dL
[2020-09-01 11:53] LABS: Glucose 2 Hour 126 mg/dL
[2020-09-01 13:00] LABS: Glucose 3 Hour 116 mg/dL
== END 2020-09-01 07:54 | disposition home or self-care (01) ==
LOC: HO.LAB 07:53
PROVIDERS: Visit Provider Advanced Practice Midwife
DX: Z34.90 Encounter for supervision of normal pregnancy, unspecified, unspecified trimester (principal)
CPT/HCPCS: 36415; 82951

== ENCOUNTER 2020-09-10 15:14 | Outpatient (REF) | payer OTHER, SELFPAY ==
--- NOTE | 2020-09-10 15:17 | US_ITS ---
EXAMINATION: US OBSTETRICAL CLINICAL INFORMATION: 30-year-old at the 18.3 weeks of gestation Suspected anomaly COMPARISON: 07/30/2020 TECHNIQUE: Real-time transabdominal ultrasound was performed using C1-5 megahertz transducer. FINDINGS: A single, active, fetus is seen in breech presentation. The placenta is posterior without previa, and the amniotic fluid volume is wnl. MEASUREMENTS: 1. Biparietal Diameter: 4.2 cm; 18.5 wks 2. Occipital Frontal Diameter: 5.5 cm 3. Head Circumference: 16.0 cm; 18.6 wks 4. Abdominal Circumference: 13.5 cm; 19.0 wks 5. Femur Length: 3.0 cm; 19.3 wks 6. Humerus Length: 2.8 cm; 18.6 wks 7. Tibia Length: 2.5 cm; 18.6 wks 8. Ulna Length: 2.4 cm; 18.4 wks 9. Lateral ventricle: 0.6 cm 10. Cerebellum: 1.82 cm; 19.0 wks 11. Cisterna Magna: 0.5 cm 12. Nuchal Fold: 3.7 mm 13. Heart Rate: 146 beats per minute Rt ovary: Unable to visualize Lt ovary: normal Cervical length 3.7 cm on T/A. GESTATIONAL AGE: 1. Established GA: 18.3 wks 2. GA from [facility]: 19.0 wks ESTIMATED DATE OF DELIVERY: 1. Established JOSH: 02/08/2021 2. JOSH from [facility]: 02/04/2021 ANATOMY: The visualized anatomy includes but not limited to: 1. Cranium: Normal 2. Intracranial anatomy: cavum septum pellucidi, lateral ventricles, choroid plexus, cerebellum, posterior fossa, third and fourth ventricles. 3. face: orbits, lip/palate, profile, nasal bone 4. Heart: four-chamber view of the heart, ventricular septum, foramen ovale, pulmonary vein, left and right outflow tracts, three-vessel view, 3 vessel trachea view, aortic and ductal arches, situs.. 5. Diaphragm: Normal 6. Abdominal wall: Normal 7. Cord Insertion: Normal 8. Spine: Cervical, thoracic, lumbar, sacral. 9. Stomach: Normal size and shape 10. Right Kidney: Normal 11. Left Kidney: Normal 12. 3 vessel cord: Normal 13. Upper extremity: Open hands, fifth digit. 14. Lower extremity: Tibia, fibula, bilateral feet. 15. Bladder: Normal 16. Genitalia: Female, patient aware US/US OB /maternal detail IMPRESSION: 1. Single, living, intrauterine with appropriate biometry. 2. Normal survey DISCUSSION: I reviewed today's ultrasound findings. We discussed the limitations of ultrasound in diagnosing aneuploidy and other congenital abnormalities. I reviewed the differences between screening test and diagnostic test. Amniocentesis was discussed and declined. She was informed that the baseline incidence of congenital abnormalities is approximately 3-5%. Not all these conditions are diagnosable in utero. RECOMMENDATIONS: 1. No further exam was scheduled today. Thank you for allowing me to participate in her care. Total time 20 (3,10,7) minutes.
== END 2020-09-10 15:15 | disposition home or self-care (01) ==
LOC: HO.US 15:14
PROVIDERS: PCP Internal Medicine; Visit Provider Advanced Practice Midwife
DX: Z36.3 Encounter for antenatal screening for malformations (principal)
CPT/HCPCS: 76811

== ENCOUNTER → 2020-09-17 11:01 | Outpatient (BNVA) | payer OTHER, SELFPAY | PROVIDERS: PCP Internal Medicine; Visit Provider Advanced Practice Midwife | DX: Z34.92 Encounter for supervision of normal pregnancy, unspecified, second trimester (principal) | CPT/HCPCS: 81003; 99212 ==

== ENCOUNTER → 2020-10-15 11:16 | Outpatient (BNVA) | payer OTHER, SELFPAY | PROVIDERS: PCP Internal Medicine; Visit Provider Advanced Practice Midwife ==

== ENCOUNTER 2020-11-18 14:04 | Outpatient (REF) | payer OTHER, SELFPAY ==
[2020-11-19 10:13] LABS: SARS COV2 PCR INHOUSE NEGATIVE (Negative)
== END 2020-11-18 14:05 | disposition home or self-care (01) ==
LOC: HO.LAB 14:04
PROVIDERS: Visit Provider Internal Medicine
DX: Z20.822 Contact with and (suspected) exposure to COVID-19 (principal)
CPT/HCPCS: C9803; U0003

== ENCOUNTER 2022-07-27 08:59 | Emergency (ER) | payer OTHER, SELFPAY ==
--- NOTE | ~2022-07-27 | XR_ITS ---
EXAMINATION: XR FOOT, LEFT CLINICAL INFORMATION: Lateral left foot pain after injury. COMPARISON: None TECHNIQUE: AP, lateral, and oblique views of the left foot. FINDINGS: The bones and soft tissues are normal. No fracture. Alignment is anatomic. Joint spaces are maintained. XR/XR foot LT min 3V IMPRESSION: Unremarkable left foot.
--- NOTE | ~2022-07-27 | CT_ITS ---
EXAMINATION: CT HEAD WITHOUT CONTRAST CLINICAL INFORMATION: Head injury. COMPARISON: 03/04/[address] scan. TECHNIQUE: Contiguous axial imaging was performed from the skull base to vertex without intravenous administration of contrast. Coronal and sagittal reformatted images were obtained. This CT examination was performed using dose optimization techniques as appropriate, variously including the following: *Automated exposure control *Adjustment of mA and/or kV according to patient size (this includes techniques or standardized protocols for targeted exams where dose is matched to indication/reason for exam; i.e. extremities or head) *Use of iterative reconstruction technique DLP: 659 mGy-cm FINDINGS: The cortical sulci are normal. The lateral ventricles are symmetrical. The third and fourth ventricles are in their normal midline position. The basilar and prepontine cisterns are unremarkable. There is no acute intra or extracerebral abnormality. There is no mass effect or midline shift. Sections through the bony calvarium are unremarkable. The paranasal sinuses show partial visualization of a small retention cyst versus inflammatory polyp posteriorly in the left maxillary sinus. The bony orbits and orbital contents are unremarkable. Mild nasal septal deviation, apex of the right is seen. CT/CT head/brain wo IV con IMPRESSION: No acute intracranial pathology.
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
[2022-07-27 09:09] VITALS: BP 132/90; PULSE 66; RESP 16; TEMP 36.8; O2SAT 98; BMI 29.5
== END 2022-07-27 10:36 | disposition home or self-care (01) ==
PROVIDERS: Emergency Provider Emergency Medicine; PCP Internal Medicine
DX: S06.0X0A Concussion without loss of consciousness, initial encounter (principal); S99.922A Unspecified injury of left foot, initial encounter; R51.9 Headache, unspecified; M54.2 Cervicalgia; Y04.2XXA Assault by strike against or bumped into by another person, initial encounter; Y93.9 Activity, unspecified; Y92.9 Unspecified place or not applicable; Y99.0 Civilian activity done for income or pay; Z79.899 Other long term (current) drug therapy
CPT/HCPCS: 70450; 73630; 99283; 99284

== ENCOUNTER 2022-08-09 08:07 | Emergency (ER) | payer OTHER, SELFPAY ==
[2022-08-09 08:12] VITALS: BP 125/90; PULSE 67; RESP 18; TEMP 36.4; O2SAT 95; BMI 30.3
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
[2022-08-09] MEDS: Ondansetron ODT 4 MG TAB.RAPDIS TRANSLINGU (09:29)
[2022-08-09] MEDS: Acetaminophen 325 MG TABLET 975 MG PO (09:30)
== END 2022-08-09 09:48 | disposition home or self-care (01) ==
PROVIDERS: Emergency Provider Student in an Organized Health Care Education/Training Program
DX: S06.0X0A Concussion without loss of consciousness, initial encounter (principal); Y04.2XXA Assault by strike against or bumped into by another person, initial encounter; Y93.89 Activity, other specified; Y92.218 Other school as the place of occurrence of the external cause; Y99.0 Civilian activity done for income or pay
CPT/HCPCS: 99283

== ENCOUNTER 2022-10-09 10:00 | Outpatient (REF) | payer OTHER, SELFPAY ==
[2022-10-09 10:07] LABS: MANUAL DIFF FLAG NO
[2022-10-09 10:28] LABS: Basophils Absolute Auto 0.1 X10*3/uL (0.0-0.2); Basophils Percent Auto 0.8 % (0-2); Eosinophils Absolute Auto 0.2 X10*3/uL (0.0-0.4); Eosinophils Percent Auto 1.3 % (0-4); Hematocrit 41.1 % (37.0-47.0); Hemoglobin 13.8 g/dl (12.0-16.0); Imm Gran Abs Auto 0.05 X10*3/uL (0.00-0.03); Imm Gran Pct Auto 0.4 % (0.0-0.4); Lymphocytes Absolute Auto 3.8 X10*3/uL (1.2-4.9); Lymphocytes Percent Auto 29.8 % (20-40); Mean Corpuscular HGB Conc 33.6 g/dl (31.0-35.0); Mean Corpuscular Hemoglobin 29.3 pg (27.0-33.0); Mean Corpuscular Volume 87.3 fL (80.0-98.0); Mean Platelet Volume 9.8 fL (9.4-12.3); Monocytes Absolute Auto 0.7 X10*3/uL (0.1-1.2); Monocytes Percent Auto 5.6 % (2-11); Neutrophils Absolute Auto 7.9 x10*3/uL (2.0-8.3); Neutrophils Percent Auto 62.1 % (45-73); Platelet Count 242 X10*3/uL (160-400); Red Blood Count 4.71 X10*6/uL (4.20-5.50); Red Cell Distribution Width 12.2 % (11.0-16.0); White Blood Count 12.8 X10*3/uL (4.8-10.8)
[2022-10-09 11:06] LABS: Alanine Aminotransferase 27 U/L (0-31); Albumin Level 3.8 g/dL (3.5-5.0); Alkaline Phosphatase 60 U/L (39-117); Anion Gap 10 (12-20); Aspartate Amino Transferase 13 U/L (5-31); Bilirubin Total 0.5 mg/dL (0.0-1.0); Blood Urea Nitrogen 12 mg/dL (9-16); Calcium 8.7 mg/dL (8.4-10.2); Carbon Dioxide 26 mmol/L (22-29); Chloride 107 mmol/L (96-108); Cholesterol 154 mg/dL; Estimated Glomerular Filt Rate > 60; Glucose Random 102 mg/dL (60-115); HDL Cholesterol 32 mg/dL; LDL Cholesterol Calculated 87 mg/dl; Potassium 4.4 mmol/L (3.3-5.1); Sodium 139 mmol/L (135-145); Total Protein 5.9 g/dL (6.5-8.0); Triglycerides 176 mg/dL
[2022-10-09 11:23] LABS: TSH reflex Free T4 1.47 uIU/mL (0.32-4.0); Vitamin D 25-OH Total 11.9 ng/mL (>30)
== END 2022-10-09 10:01 | disposition home or self-care (01) ==
LOC: HO.LAB 10:00
PROVIDERS: PCP Nurse Practitioner Family; Visit Provider Nurse Practitioner Family
DX: Z13.29 Encounter for screening for other suspected endocrine disorder (principal); Z13.220 Encounter for screening for lipoid disorders; Z13.21 Encounter for screening for nutritional disorder; Z13.0 Encounter for screening for diseases of the blood and blood-forming organs and certain disorders involving the immune mechanism
CPT/HCPCS: 36415; 80053; 80061; 82306; 84443; 85025

== ENCOUNTER 2022-11-21 08:48 | Emergency (ER) | payer OTHER, SELFPAY ==
--- NOTE | ~2022-11-21 | CT_ITS ---
EXAMINATION: CT HEAD WITHOUT CONTRAST CLINICAL INFORMATION: Left facial numbness. History of head injury. COMPARISON: Previous head CT most recent July 2022 TECHNIQUE: Contiguous axial imaging was performed from the skull base to vertex without intravenous administration of contrast. This CT examination was performed using dose optimization techniques as appropriate, variously including the following: *Automated exposure control *Adjustment of mA and/or kV according to patient size (this includes techniques or standardized protocols for targeted exams where dose is matched to indication/reason for exam; i.e. extremities or head) *Use of iterative reconstruction technique DLP: 678 mGy-cm FINDINGS: There is no evidence of an extra-axial collection. There is no evidence of intra or extra-axial hemorrhage. The ventricles and extra-axial CSF spaces are appropriate. Palma-white matter differentiation is normal. No mass, mass effect or infarct. Review of bone windows is normal. No skull fracture. Paranasal sinuses, mastoid air cells and middle ears are clear. CT/CT head/brain wo IV con IMPRESSION: Unremarkable exam.
[2022-11-21 09:01] VITALS: BP 133/82; PULSE 76; RESP 19; TEMP 36.6; O2SAT 98; BMI 30.3
--- NOTE | 2022-11-21 09:36 | ED.WOUNDLAC ---
HPI - Wound/Laceration General Chief Complaint: Wound/Laceration Stated Complaint: Spider bite Time Seen by Provider: 11/21/22 09:27 Source: patient Mode of arrival: ambulatory Limitations: no limitations History of Present Illness HPI narrative: 32-year-old female with PMHx anemia, anxiety, concussions presents to the ED with a spider bite to the right calf from 3 days ago. Reports seeing a chaudhari color spider falling out her pants then feeling the bite. Reports increasing pain to the affected area without swelling, erythema, or drainage. Reports nausea, headache, vomiting & myalgias since incident which have been improving. Also reports left-sided facial numbness since yesterday which has been constant. Denies fever, SOB, abdominal pain, tingling, vision change/loss, weakness Onset (ago): day(s) (3) Extremity Location: right: lower leg (calf) Place: home Related Data Previous Rx's Medication Instructions Recorded acetaminophen 500 mg tablet 1,000 mg PO QID PRN fever or pain 08/09/22 (Tylenol Extra Strength) #14 tabs ondansetron HCl 4 mg tablet 4 mg PO Q8H #14 tabs 08/09/22 cholecalciferol (vitamin D3) 50 50 mcg PO DAILY #30 caps 10/09/22 mcg (2,000 unit) capsule Allergies Allergy/AdvReac Type Severity Reaction Status Date / Time No Known Allergies Allergy Verified 11/21/22 09:00 Review of Systems Review of Systems: Constitutional: No Fever, No Chills ENT/Mouth: No Ear Pain, No Nasal Congestion, No Sinus Pain, No Hoarseness, No sore throat, No Rhinorrhea, No Swallowing Difficulty Cardiovascular: No Chest Pain, No SOB Respiratory: No Cough, No Sputum, No Wheezing Gastrointestinal: + Nausea, + Vomiting (resolved), No Diarrhea, No Constipation, No Abdominal pain Musculoskeletal: No joint pain, + Myalgias, No Joint Swelling Skin: + spider bite to the right calf Neuro: No Weakness, + Numbness, No Paresthesias Yes all other systems are reviewed and are negative Constitutional: Constitutional: Reports as per HPI Neurologic: Denies Abnormal speech present [facility] Past Medical History Attestation statement: The following information was validated with the patient. Medical History Anemia Anxiety Bleeding in early History of 2019 novel coronavirus disease (COVID-19) Less than 8 weeks gestation of Post-concussion headache Second trimester Supervision of normal in second trimester Threatened Vitamin D deficiency Surgical History H/O tubal ligation Family History Family History Mother Hx of diabetes mellitus Hx of primary hypertension History of hyperthyroidism Father Hx of gastrointestinal disease Maternal Grandmother No problems noted. Maternal Grandfather Hx of diabetes mellitus Paternal Grandmother No problems noted. Paternal Grandfather No problems noted. Sister Hx of anxiety disorder History of depression Sister History of depression Hx of anxiety disorder Sister Hx of anxiety disorder History of depression Sister History of depression Hx of anxiety disorder Social History Social History Housing: Apartment Alcohol intake: never Patient Tobacco Use Status: Never used Tobacco Tobacco use type: Cigarette e-Cigarette/Vaping Use: Never Used Substance Use Type: Marijuana Advance Directives: No Advance Directives Information Provided: No service: No Current occupational status: employed Cognitive needs: No Hearing needs: No Vision needs: No Physical Exam Vital Signs: Vital Signs: Last Vital Signs Temp 98 F 11/21/22 09:01 Pulse 76 11/21/22 09:01 Resp 19 11/21/22 09:01 BP 133/82 11/21/22 09:01 Pulse Ox 98 11/21/22 09:01 BMI result Body Mass Index 30.3 Const: General: cooperative, healthy appearing, comfortable and no acute distress Orientation/consciousness: patient oriented x3 Limitations: no limitations HEENT: Head: Yes normal to inspection and Yes atraumatic Ears: hearing grossly normal bilaterally, TM's normal bilaterally and mastoids normal General nose exam: Normal external nose present Face and sinus: Yes normal facial exam, No ecchymosis and No erythema Throat: Yes posterior oropharynx normal, Yes tonsils normal, No peritonsillar mass and No uvula laterally displaced Eyes: General: appearance normal, both eyes and all related structures Pupils: Equal, round and reactive pupils present EOM: EOMs intact bilaterally Neck: Neck: Yes normal visual inspection, Yes no lymphadenopathy, Yes no meningeal signs, Yes supple and No anterior neck swelling Resp: Effort & Inspection: normal respiratory effort and no respiratory distress Auscultation: clear to auscultation bilaterally Cardio: Rate: regular rate Heart sounds: S1 normal heart sound present and S2 normal heart sound present Skin: Other: Two small superficial puncture wounds noted on the right calf with minimal overlying erythema and scab. Area tender to touch. No swelling or drainage noted. No fluctuance/induration or warmth Neuro: Other: + reported decreased sensation to left forehead and maxillary area compared to contralateral side General: patient oriented x3, gait normal, tone normal, moves all extremities, no meningeal signs and no focal motor deficits Cranial nerves: Yes CN's II-XII intact bilaterally and Yes Equal, round and reactive pupils present Cognition (Neuro): normal cognition Speech: No Abnormal speech present Gait exam (Neuro): Normal gait present Motor exam (neuro): 5/5 motor strength present throughout Extrem: General: Yes normal to inspection Course Course Course Narrative: 1300-- CT head/brain wo IV con IMPRESSION: Unremarkable exam. > Results discussed with patient including worrisome signs and symptoms and strict return precautions, and when to return to the emergency department. They verbalized understanding and feel safe for discharge at this time. Medical Decision Making Medical Decision Making MDM Narrative: 32-year-old female with PMHx anemia, anxiety, concussions presents to the ED with a spider bite to the right calf from 3 days ago. Also reports nausea, headache, vomiting & myalgias since incident which have been improving, and L sided facial numbness since yesterday. on exam vital signs stable, NAD, nontoxic appearing, for fissural bite wounds to right calf slight surrounding erythema, no fluctuance/induration, not circumferential. No warmth. Subjective left-sided facial decreased sensation without focal deficits. Concern for spider bite, no evidence of necrosis, low suspicion for brown recluse. No evidence of cellulitis or abscess. Compartments soft. Concern for ?anxiety vs paresthesias. Low suspicion for trigeminal neuralgia, giant cell arteritis, mastoiditis/otitis, CVA or TIA. With shared decision making patient would like p.o. doxycycline Plan: p.o. antibiotics, head CT, PCP follow-up Please refer to course for remaining clinical decision making, interpretation of labs/imaging results, and discussions with consultants and/or family members. Differential Diagnosis Differential Diagnoses: The differential diagnosis associated with the presentation includes As above Admission/Observation Consideration of admission/observation: Escalation of care including admission/observation considered Lab Data MDM Lab Attestation statement: I reviewed the patient's lab results. Radiology Impression Discussion of test interpretation with radiology: I have reviewed the radiologist's reading. External Record Review External record reviewed: Inpatient record, Office record, Outpatient record, Prior outpatient labs, Prior outpatient radiology, Primary care record and Outside ED record Discharge Plan Discharge Clinical Impression: Spider bite, Facial paresthesia Prescriptions: No Action ondansetron HCl 4 mg tablet 4 mg PO Q8H Qty: 14 0RF acetaminophen [Tylenol Extra Strength] 500 mg tablet 1,000 mg PO QID PRN (Reason: fever or pain) Qty: 14 0RF cholecalciferol (vitamin D3) 50 mcg (2,000 unit) capsule 50 mcg PO DAILY Qty: 30 3RF
== END 2022-11-21 13:28 | disposition home or self-care (01) ==
PROVIDERS: Emergency Provider Emergency Medicine Emergency Medical Services; PCP Nurse Practitioner Family
DX: S80.861A Insect bite (nonvenomous), right lower leg, initial encounter (principal); W57.XXXA Bitten or stung by nonvenomous insect and other nonvenomous arthropods, initial encounter; R29.810 Facial weakness; Y93.9 Activity, unspecified; Y92.019 Unspecified place in single-family (private) house as the place of occurrence of the external cause; Y99.9 Unspecified external cause status
CPT/HCPCS: 70450; 99283; 99284

== ENCOUNTER 2022-12-27 08:29 | Emergency (ER) | payer OTHER, SELFPAY ==
[2022-12-27 09:00] VITALS: BP 141/97; PULSE 78; RESP 16; TEMP 36.4; O2SAT 97; BMI 31.5
[2022-12-27 09:14] LABS: MANUAL DIFF FLAG NO
[2022-12-27 09:16] LABS: Basophils Absolute Auto 0.1 X10*3/uL (0.0-0.2); Basophils Percent Auto 0.5 % (0-2); Eosinophils Percent Auto 0.3 % (0-4); Hematocrit 42.9 % (37.0-47.0); Hemoglobin 14.8 g/dl (12.0-16.0); Imm Gran Abs Auto 0.04 X10*3/uL (0.00-0.03); Imm Gran Pct Auto 0.4 % (0.0-0.4); Lymphocytes Absolute Auto 1.9 X10*3/uL (1.2-4.9); Lymphocytes Percent Auto 17.1 % (20-40); Mean Corpuscular HGB Conc 34.5 g/dl (31.0-35.0); Mean Corpuscular Hemoglobin 29.7 pg (27.0-33.0); Mean Corpuscular Volume 86.1 fL (80.0-98.0); Mean Platelet Volume 9.8 fL (9.4-12.3); Monocytes Absolute Auto 0.5 X10*3/uL (0.1-1.2); Monocytes Percent Auto 4.3 % (2-11); Neutrophils Absolute Auto 8.6 x10*3/uL (2.0-8.3); Neutrophils Percent Auto 77.4 % (45-73); Platelet Count 226 X10*3/uL (160-400); Red Blood Count 4.98 X10*6/uL (4.20-5.50); Red Cell Distribution Width 11.9 % (11.0-16.0); White Blood Count 11.2 X10*3/uL (4.8-10.8)
[2022-12-27 09:32] LABS: Alanine Aminotransferase 33 U/L (0-31); Albumin Level 4.3 g/dL (3.5-5.0); Alkaline Phosphatase 57 U/L (39-117); Anion Gap 11 (12-20); Aspartate Amino Transferase 20 U/L (5-31); Bilirubin Total 1.7 mg/dL (0.0-1.0); Blood Urea Nitrogen 13 mg/dL (9-16); Calcium 9.6 mg/dL (8.4-10.2); Carbon Dioxide 27 mmol/L (22-29); Chloride 106 mmol/L (96-108); Creatinine Clr Calc Pharmacy 129.7; Estimated Glomerular Filt Rate > 60; Glucose Random 123 mg/dL (60-115); Potassium 4.7 mmol/L (3.3-5.1); Sodium 139 mmol/L (135-145); Total Protein 6.8 g/dL (6.5-8.0)
== END 2022-12-27 15:47 | disposition left against medical advice (07) ==
PROVIDERS: Emergency Provider Emergency Medicine; PCP Nurse Practitioner Family
DX: M62.838 Other muscle spasm (principal); R11.10 Vomiting, unspecified
CPT/HCPCS: 36415; 80053; 85025; 99281; 99283

== ENCOUNTER 2023-06-01 14:13 | Outpatient (AMB) | payer OTHER, SELFPAY ==
--- NOTE | 2023-06-01 14:13 | MHC.PC.OV ---
Intake Visit Reasons: Scabes ? Intake Note: pt states exposure to scabies as of today, requesting medication [employer] Required: No Allergies No Known Allergies Allergy (Verified 06/01/23 14:28) Medication List - Last Reconciled 06/01/23 by ELIZABETH Hay acetaminophen (Tylenol Extra Strength) 1,000 mg (2 x 500 mg) PO QID PRN cholecalciferol (vitamin D3) 50 mcg PO DAILY Tobacco use date assessed: 10/09/22 HPI Scabes ? HPI Details This is a telehealth visit and patient was verified by name and date of . Patient is a 33-year-old female who presents today with exposure to scabies since today. Patient reports that her daughter was diagnosed with scabies started on permethrin. Patient reports bilateral hand mild raised rash for the past less than 1 week with pruritus. Patient denies any other rash. Denies . Patient of [facility]. [facility] Medical History Vitamin D deficiency Anxiety Post-concussion headache Supervision of normal in second trimester Second trimester Bleeding in early History of 2019 novel coronavirus disease (COVID-19) Less than 8 weeks gestation of Threatened Anemia Surgical History H/O tubal ligation Family History Mother Hx of diabetes mellitus Hx of primary hypertension History of hyperthyroidism Father Hx of gastrointestinal disease Maternal Grandmother No problems noted. Maternal Grandfather Hx of diabetes mellitus Paternal Grandmother No problems noted. Paternal Grandfather No problems noted. Sister Hx of anxiety disorder History of depression Sister History of depression Hx of anxiety disorder Sister Hx of anxiety disorder History of depression Sister History of depression Hx of anxiety disorder Social History Housing: Apartment Alcohol intake: never Patient Tobacco Use Status: Never used Tobacco Tobacco use type: Cigarette e-Cigarette/Vaping Use: Never Used Substance Use Type: Marijuana service: No Current occupational status: employed Cognitive needs: No Hearing needs: No Vision needs: No Female Reproductive History Menstrual Age of Menarche: 12 Questionnaire Thrive Questionnaire Date Thrive assessed: 10/09/22 AUDIT C Alcohol Use Questionnaire (AUDIT-C) 1. How often do you have a drink containing alcohol?: Never Total Score: 0 Score Reviewed/Action Taken: No YADIRA-7 AMB Questionnaire YADIRA-7 Date YADIRA - 7 assessed: 10/09/22 Source: Developed by Drs. Reyes Jimenez, Deepali Evans, Prem Marion and colleagues, with an educational efren from [employer]. Review of Systems Const Denies fatigue Card Reports no additional complaints Resp Reports no additional complaints GI Reports no additional complaints Skin/Breast Reports as per HPI Endo Denies fatigue Physical exam (Primary Care) Tobacco/Smoking Status: Tobacco use Status Tobacco use date assessed 10/09/22 06/01/23 14:15 Patient Tobacco Use Status Never used Tobacco 06/01/23 14:15 Tobacco use type Cigarette 06/01/23 14:15 e-Cigarette/Vaping Use Never Used 06/01/23 14:15 Thrive Assessment: Date of Thrive Assessment Date Thrive assessed 10/09/22 06/01/23 14:15 Const General: cooperative Orientation/consciousness: patient oriented x3 Skin Other: Bilateral hands dorsal aspect with very mild slightly erythematous raised areas noted, although hard to completely assess via video Neuro General: patient oriented x3 Telehealth Telehealth Location of provider rendering services: practice address Location of patient: address on file Patient Identification confirmed using: Name, : Yes Telehealth method: video (iphone// [phone]) Patient verbally consented to treatment: Yes Patient verbally consented to billing insurance company: Yes Patient informed of any privacy concerns related to visit: Yes Minutes spent on Phone/Video with Pt.: 5 Assessment and Plan Assessment & Plan (1) Scabies exposure: Code(s): Z20.7 - Contact with and (suspected) exposure to pediculosis, acariasis and other infestations Plan: Start permethrin topical Precautions reviewed with the patient Follow-up if no improvement after finishing treatment Agreed with the plan Medications: New permethrin 5% leave on for 8-14 hours, may repeat in 14 days if no improvement 1 appl topical Q14D 60 grams 0RF Z20.7 - Contact with and (suspected) exposure to pediculosis, acariasis and other infestations Coding Level of Care Code Tele Est Pt Level 3 (37289) Diagnoses Scabies exposure Z20.7
== END 2023-06-01 14:58 | disposition home or self-care (01) ==
LOC: HO.HMGH 14:13
PROVIDERS: PCP Nurse Practitioner Family; Visit Provider Nurse Practitioner Family
DX: Z20.7 Contact with and (suspected) exposure to pediculosis, acariasis and other infestations (principal)
CPT/HCPCS: 99213

== ENCOUNTER 2023-06-18 10:06 | Outpatient (AMB) | payer OTHER, SELFPAY ==
--- NOTE | 2023-06-18 10:07 | MHC.OFFVIS ---
Intake Intake Visit Reasons: irregular bleeding Intake Note: vaginal bleeding x 4 months Forensic Analyst Required: No Information Interpreted: non-clinical & clinical Material Planning Analyst: Material Planning Analyst Present (Aby Wetzel RMA) Accompanied by: Self / Same As Patient Allergies No Known Allergies Allergy (Verified 06/18/23 10:07) Medication List - Last Reviewed 06/18/23 by Aby Wetzel, ANDREW acetaminophen (Tylenol Extra Strength) 1,000 mg (2 x 500 mg) PO QID PRN cholecalciferol (vitamin D3) 50 mcg PO DAILY ondansetron HCl 4 mg PO Q6H permethrin 5% 1 appl topical Q14D 2 doses HPI irregular bleeding HPI Details Patient presents for a number urgent visit for heavy bleeding for 4 months. 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 She states she has been bleeding for about 4 months but in reviewing her history she also had a history of abnormal bleeding for years and years pre and even during her she had bleeding (and ended up delivering prematurely after rupturing her membranes at 24 weeks and staying in [facility] for a week before she went into labor at 25 weeks and delivered her 1 lb baby girl who came out breathing and with her eyes open. She was in NICU for 3 months but has done really well and the only problem she has is PICA and she does have early intervention services for her) she is in daycare now and doing well. Patient states she has a history of PCOS in the past and also she used Depo-Provera the Nexplanon both before and after her pregnancies and then she had her tubes removed 7-8 months after her baby was born in 2020 and the Nexplanon was taken out at that time she did continue to have irregular bleeding ever since then as well. She was seen 2 weeks ago by her primary care provider for scabies and treated as her sister's child had scabies and her daughter had some symptoms and so everyone was treated but in the end she is not sure that she ever had. She presented to the emergency room 3 days ago and was transferred by ambulance to [facility] and was seen and evaluated there for her heavy bleeding and she was examined by provider and given control pills to take in a tapering dose of 3 pills a day for 3 days 2 pills a day for 2 days and 1 pill a day after that to finish out the month. She does think it is helping and making the bleeding lasts. She has a strong family history of diabetes and she knows that she has PCOS. She does not remember exactly when her last fasting blood work was done but she thought it was this year she never heard about anything abnormal. Review of the records reveals blood work done in December with the blood sugar level of to 123. She was not anemic at that time. Plan made to order blood work now and she turns out has not eaten anything at all yet this morning and has not taken her morning control pill yet either I am also ordering an ultrasound to be done on an urgent basis sometime this week hopefully and she will be seen after the ultrasound and blood work results are back and I told her to anticipate that I will be doing an endometrial biopsy and placing Mirena at that stage she has heard about the Mirena before and I discussed that at this point we really need to do something definitively tests help stop this bleeding pattern. [facility] Medical History Vitamin D deficiency Anxiety Post-concussion headache Supervision of normal in second trimester Second trimester Bleeding in early History of 2019 novel coronavirus disease (COVID-19) Less than 8 weeks gestation of Threatened Anemia Surgical History H/O tubal ligation Family History Mother Hx of diabetes mellitus Hx of primary hypertension History of hyperthyroidism Father Hx of gastrointestinal disease Maternal Grandmother No problems noted. Maternal Grandfather Hx of diabetes mellitus Paternal Grandmother No problems noted. Paternal Grandfather No problems noted. Sister Hx of anxiety disorder History of depression Sister History of depression Hx of anxiety disorder Sister Hx of anxiety disorder History of depression Sister History of depression Hx of anxiety disorder Social History Housing: Apartment Alcohol intake: never Patient Tobacco Use Status: Never used Tobacco Tobacco use type: Cigarette e-Cigarette/Vaping Use: Never Used Substance Use Type: Marijuana service: No Current occupational status: employed Cognitive needs: No Hearing needs: No Vision needs: No Female Reproductive History Menstrual Age of Menarche: 12 Physical Exam Const Other: Acanthosis nigricans increased facial hair and central adiposity consistent with PCOS and metabolic syndrome. Other: Patient bleeding consistent with very heavy menses but with abnormal bleeding pattern and history. Cervical os multiparous gaping with heavy menses and some clots and mucus. Cervix very posterior. External Female Exam: normal external appearance Speculum Exam - Vagina: normal appearance of the vagina and vaginal bleeding Speculum Exam - Cervix: normal appearance of the cervix Bimanual exam- vagina & uterus: normal bimanual exam, uterine size normal (Possibly very slightly enlarged.), consistency normal, uterine mobility normal, uterine shape normal and non-tender Bimanual Exam- Adnexa, other: normal adnexae, no masses and No adnexal tenderness OB/external & speculum: vaginal bleeding Results AMB Test Urine AMB Test Urine Negative Last Edit by Aby Wetzel CMA on 06/18/23 10:14 Results Reviewed Results Reviewed: Laboratory Last Values Tst Clinic Negative 06/18/23 10:14 Assessment & Plan Assessment & Plan (1) Abnormal uterine bleeding (AUB): Code(s): N93.9 - Abnormal uterine and vaginal bleeding, unspecified (2) PCOS (polycystic ovarian syndrome): Code(s): E28.2 - Polycystic ovarian syndrome Plan Patient presents for a number urgent visit for heavy bleeding for 4 months. 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 She states she has been bleeding for about 4 months but in reviewing her history she also had a history of abnormal bleeding for years and years pre and even during her she had bleeding (and ended up delivering prematurely after rupturing her membranes at 24 weeks and staying in [facility] for a week before she went into labor at 25 weeks and delivered her 1 lb baby girl who came out breathing and with her eyes open. She was in NICU for 3 months but has done really well and the only problem she has is PICA and she does have early intervention services for her) she is in daycare now and doing well. Patient states she has a history of PCOS in the past and also she used Depo-Provera the Nexplanon both before and after her pregnancies and then she had her tubes removed 7-8 months after her baby was born in 2020 and the Nexplanon was taken out at that time she did continue to have irregular bleeding ever since then as well. She was seen 2 weeks ago by her primary care provider for scabies and treated as her sister's child had scabies and her daughter had some symptoms and so everyone was treated but in the end she is not sure that she ever had. She presented to the emergency room 3 days ago and was transferred by ambulance to [facility] and was seen and evaluated there for her heavy bleeding and she was examined by provider and given control pills to take in a tapering dose of 3 pills a day for 3 days 2 pills a day for 2 days and 1 pill a day after that to finish out the month. She does think it is helping and making the bleeding lasts. She has a strong family history of diabetes and she knows that she has PCOS. She does not remember exactly when her last fasting blood work was done but she thought it was this year she never heard about anything abnormal. Review of the records reveals blood work done in December with the blood sugar level of to 123. She was not anemic at that time. Plan made to order blood work now and she turns out has not eaten anything at all yet this morning and has not taken her morning control pill yet either I am also ordering an ultrasound to be done on an urgent basis sometime this week hopefully and she will be seen after the ultrasound and blood work results are back and I told her to anticipate that I will be doing an endometrial biopsy and placing Mirena at that stage she has heard about the Mirena before and I discussed that at this point we really need to do something definitively tests help stop this bleeding pattern. Orders: Orders Hepatitis B Surface Antigen Today E28.2 - Polycystic ovarian syndrome, N93.9 - Abnormal uterine and vaginal bleeding, unspecified Hepatitis C Antibody Today E28.2 - Polycystic ovarian syndrome, N93.9 - Abnormal uterine and vaginal bleeding, unspecified Thyroid Stimulating Hormone Today E28.2 - Polycystic ovarian syndrome, N93.9 - Abnormal uterine and vaginal bleeding, unspecified Complete Blood Count no Diff Today E28.2 - Polycystic ovarian syndrome, N93.9 - Abnormal uterine and vaginal bleeding, unspecified Bacterial Vaginosis Panel Today N93.9 - Abnormal uterine and vaginal bleeding, unspecified AMB HCG Urine Test Today Z32.02 - Encounter for test, result negative US pelvic and transvaginal Today E28.2 - Polycystic ovarian syndrome, N93.9 - Abnormal uterine and vaginal bleeding, unspecified HIV Ab/Ag Today E28.2 - Polycystic ovarian syndrome, N93.9 - Abnormal uterine and vaginal bleeding, unspecified Syphilis Screen Today E28.2 - Polycystic ovarian syndrome, N93.9 - Abnormal uterine and vaginal bleeding, unspecified Glucose Random Today E28.2 - Polycystic ovarian syndrome, N93.9 - Abnormal uterine and vaginal bleeding, unspecified CT NG by PCR Today N93.9 - Abnormal uterine and vaginal bleeding, unspecified Coding Level of Care Code Est Pt Level 4 (81835) Diagnoses Abnormal uterine bleeding (AUB) N93.9 PCOS (polycystic ovarian syndrome) E28.2
== END 2023-06-18 11:22 | disposition home or self-care (01) ==
PROVIDERS: PCP Nurse Practitioner Family; Visit Provider Advanced Practice Midwife
DX: N93.9 Abnormal uterine and vaginal bleeding, unspecified (principal); E28.2 Polycystic ovarian syndrome; Z32.02 Encounter for pregnancy test, result negative
CPT/HCPCS: 99214

== ENCOUNTER 2023-06-18 10:06 | Outpatient (REF) | payer OTHER, SELFPAY ==
[2023-06-19 11:54] LABS: BV Int Neg Control Negative (Negative); BV Int Pos Control Positive (Positive)
== END 2023-06-18 10:07 | disposition home or self-care (01) ==
LOC: HO.LNP 10:06
PROVIDERS: PCP Nurse Practitioner Family; Visit Provider Advanced Practice Midwife
DX: N93.9 Abnormal uterine and vaginal bleeding, unspecified (principal); E28.2 Polycystic ovarian syndrome
CPT/HCPCS: 81025; 87480; 87510; 87660; 99212

== ENCOUNTER 2023-06-18 11:26 | Outpatient (REF) | payer OTHER, SELFPAY ==
--- NOTE | ~2023-06-18 | US_ITS ---
EXAMINATION: US PELVIS CLINICAL INFORMATION: Abnormal uterine and vaginal bleeding, unspecified LMP: Unknown, ongoing bleeding for years according to the patient COMPARISON: Pelvic ultrasound 03/28/2019 TECHNIQUE: Ultrasound of the pelvis is performed using both transabdominal and transvaginal transducers along with Doppler. Transvaginal imaging is performed due to inadequate visualization transabdominally. FINDINGS: Uterus: The uterus is anteverted and measures 9.1 x 4.3 x 5.5 cm. No focal fibroid. The endometrial thickness is 0.5 mm. Adnexa: Both ovaries are visualized. There is normal color flow to the adnexa. There is no ovarian torsion. There is no pelvic ascites or fluid collection. Right ovary measures 3.4 x 2.3 x 2.2 cm. Volume 9.0 mL. Left ovary measures 3.5 x 2.2 x 2.2 cm. Volume 8.9 mL. US/US pelvic and transvaginal IMPRESSION: Normal pelvic ultrasound.
[2023-06-18 12:34] LABS: Hematocrit 35.2 % (37.0-47.0); Hemoglobin 11.8 g/dl (12.0-16.0); Mean Corpuscular HGB Conc 33.5 g/dl (31.0-35.0); Mean Corpuscular Hemoglobin 29.8 pg (27.0-33.0); Mean Corpuscular Volume 88.9 fL (80.0-98.0); Mean Platelet Volume 10.5 fL (9.4-12.3); Platelet Count 269 X10*3/uL (160-400); Red Blood Count 3.96 X10*6/uL (4.20-5.50); Red Cell Distribution Width 11.8 % (11.0-16.0); White Blood Count 12.3 X10*3/uL (4.8-10.8)
[2023-06-18 13:18] LABS: Glucose Random 98 mg/dL (60-115)
[2023-06-18 13:36] LABS: Syphilis Screen Nonreactive (Nonreactive)
[2023-06-18 13:40] LABS: HBsAGNum1 0.41 S/CO (0.00-0.99); HIV AB/AG Nonreactive (Nonreactive); HIV Num 1 0.05 S/CO (0.00-0.99); Hepatitis B Surface Antigen Negative (Negative); ~HepC Num1 0.04 S/CO (0.00-0.79); ~Hepatitis C Antibody Nonreactive (Nonreactive)
[2023-06-18 13:42] LABS: Thyroid Stimulating Hormone 2.84 uIU/mL (0.32-4.0)
[2023-06-18 18:43] LABS: CT PCR NOT DETECTED (Not Detect.); NG PCR NOT DETECTED (Not Detect.)
== END 2023-06-18 11:27 | disposition home or self-care (01) ==
LOC: HO.US 11:26
PROVIDERS: PCP Nurse Practitioner Family; Visit Provider Advanced Practice Midwife
DX: Z11.4 Encounter for screening for human immunodeficiency virus [HIV] (principal); N93.9 Abnormal uterine and vaginal bleeding, unspecified; E28.2 Polycystic ovarian syndrome
CPT/HCPCS: 0353U; 76830; 76856; 82947; 84443; 85027; 86780; 86803; 87340; 87389

== ENCOUNTER 2023-07-06 10:00 | Outpatient (AMB) | payer OTHER, SELFPAY ==
[2023-07-06 10:09] VITALS: BP 110/68; BMI 31.0
--- NOTE | 2023-07-06 10:09 | A.OFFVIS_ITS ---
Intake Vital Signs 07/06/23 10:09 Height 5 ft 6 in Weight 192 lb BMI 31.0 BP 110/68 Intake Visit Reasons: Ultrasound/? EMB/Mirena Intake Note: Patient only wants the result for US she is not ready for the EMB or Mirena Quartz Mounter Required: No Information Interpreted: non-clinical & clinical Sofa Back Upholsterer: Sofa Back Upholsterer Present (Aidyn) Allergies No Known Allergies Allergy (Verified 07/06/23 10:19) Medication List - Last Reconciled 07/06/23 by Shanda Naidu CNM acetaminophen (Tylenol Extra Strength) 1,000 mg (2 x 500 mg) PO QID PRN cholecalciferol (vitamin D3) 50 mcg PO DAILY desogestrel-ethinyl estradiol 0.15-0.03 mg (Apri) tabs PO ondansetron HCl 4 mg PO Q6H permethrin 5% 1 appl topical Q14D 2 doses Post menopausal: No HPI Ultrasound/? EMB/Mirena HPI Details Is scheduled for a review of her ultrasound and an endometrial biopsy and possible Mirena insertion. She has been seen for menorrhagia and sometime ago she was seen in the emergency room and transferred to [facility] for this same problem they treated her with a tapering dose of control pills. During evaluation at the last visit cultures were done as well and bacterial vaginosis was diagnosed she called this week sing she was still bleeding very heavily and was having a very hard time tolerating the Flagyl because of the side effects. Patient presents here today but says her back is sore and she has not been feeling great but the bleeding has completely stopped and it stopped right after the heavy bleeding that had prompted her phone call earlier this week and she is still taking the control pills that she was given at [facility] she was given a 3 month supply and she feels it is already helping her hair growth on her face from her PCOS and all she wants to do today is review the ultrasound and she promises she will come back for an endometrial biopsy. She also had blood work done it showed a drop in her H&H but not into the anemic range. Her TSH is within the normal range but ever so slightly elevated. She has her next appointment with her primary coming up in September so may want to review that then. She promises to reschedule the endometrial biopsy I did review the ultrasound with her which was within complete bleed normal limits. She has decided since the bleeding has stopped that she will have the endometrial biopsy 1st and return for review of that and then return for Mirena if that is this the plan she decides on after that [facility] Medical History Vitamin D deficiency Anxiety Post-concussion headache Supervision of normal in second trimester Second trimester Bleeding in early History of 2019 novel coronavirus disease (COVID-19) Less than 8 weeks gestation of Threatened Anemia Surgical History H/O tubal ligation Family History Mother Hx of diabetes mellitus Hx of primary hypertension History of hyperthyroidism Father Hx of gastrointestinal disease Maternal Grandmother No problems noted. Maternal Grandfather Hx of diabetes mellitus Paternal Grandmother No problems noted. Paternal Grandfather No problems noted. Sister Hx of anxiety disorder History of depression Sister History of depression Hx of anxiety disorder Sister Hx of anxiety disorder History of depression Sister History of depression Hx of anxiety disorder Social History Housing: Apartment Alcohol intake: never Patient Tobacco Use Status: Never used Tobacco Tobacco use type: Cigarette e-Cigarette/Vaping Use: Never Used Substance Use Type: Marijuana service: No Current occupational status: employed Cognitive needs: No Hearing needs: No Vision needs: No Female Reproductive History Menstrual Age of Menarche: 12 control method: pills Total pregnancies: 3 Full term: 2 Number of Living Children: 2 Ab induced: 1 Physical Exam Vital Signs: Last Vital Signs BP 110/68 07/06/23 10:09 BMI result Body Mass Index 31.0 Const Other: Patient declined exam today Results Reviewed Results Reviewed: Re06/18/23 Status: DEP REF Location: [facility] isch: SPEC : [id number] KALPANA: 06/18/23 STATUS: COMP REQ : [id number] RECD: 06/18/[address]: Shanda Naidu CNM COMP: 06/18/23 ENTERED: 06/18/[address]: Honey Ko ORDERED: CBC No Diff Test Result Flag Reference Site WBC 12.3 H 4.8-10.8 X10*3/uL RBC 3.96 # L 4.20-5.50 X10*6/uL HGB 11.8 # L 12.0-16.0 g/dl HCT 35.2 L 37.0-47.0 % MCV 88.9 80.0-98.0 fL MCH 29.8 27.0-33.0 pg MCHC 33.5 31.0-35.0 g/dl RDW 11.8 11.0-16.0 % PLT 269 160-400 X10*3/uL MPV 10.5 9.4-12.3 fL NRBC Pct Auto 0.0 0.0-0.2 /100WBC NRBC A Name: Jess Moseley Age/Sex: 33/F : 1990 Unit#: [id number] Attend Dr: Shanda Naidu CNM Re06/18/23 Status: DEP REF Location: [facility] Disch: SPEC : [id number] KALPANA: 06/18/23 STATUS: COMP REQ : [id number] RECD: 06/18/[address]: Shanda Naidu CNM COMP: 06/18/23134 ENTERED: 06/18/23-[address] [facility] [address]: Honey Ko ORDERED: Glu Random, TSH Test Result Flag Reference Site Glucose, Random 98 60-115 mg/dL TSH 3rd Gen. 2.84 0.32-4.0 uIU/mL Note: A sustained TSH level above 2.5 uIU/mL may warrant further investigation. TSH 3rd Generation ([facility]) [address] [id number] Report Signed Patient: Jess Moseley KMR#: [id number]: [id number]:[id number]/Sex: 33 / FADM Date: 06/18/23Loc: .USAttending Dr: Shanda Naidu CNM Ordering Physician: Shanda Naidu CNM Date of Service: 06/18/23 Procedure(s): US pelvic and transvaginal Accession Number(s): [id number] cc: Shanda Naidu CNM; Honey Ko~ EXAMINATION: US PELVIS CLINICAL INFORMATION: Abnormal uterine and vaginal bleeding, unspecified LMP: Unknown, ongoing bleeding for years according to the patient COMPARISON: Pelvic ultrasound 03/28/2019 TECHNIQUE: Ultrasound of the pelvis is performed using both transabdominal and transvaginal transducers along with Doppler. Transvaginal imaging is performed due to inadequate visualization transabdominally. FINDINGS: Uterus: The uterus is anteverted and measures 9.1 x 4.3 x 5.5 cm. No focal fibroid. The endometrial thickness is 0.5 mm. Adnexa: Both ovaries are visualized. There is normal color flow to the adnexa. There is no ovarian torsion. There is no pelvic ascites or fluid collection. Right ovary measures 3.4 x 2.3 x 2.2 cm. Volume 9.0 mL. Left ovary measures 3.5 x 2.2 x 2.2 cm. Volume 8.9 mL. US/US pelvic and transvaginal IMPRESSION: Normal pelvic ultrasound. Dictated By:Elsie Diaz MDSigned By:<Electronically signed by Elsie Diaz MD in OV>06/18/23 1241 DD/ 1217TD/TT: Assessment & Plan Assessment & Plan (1) PCOS (polycystic ovarian syndrome): Code(s): E28.2 - Polycystic ovarian syndrome (2) Abnormal uterine bleeding (AUB): Code(s): N93.9 - Abnormal uterine and vaginal bleeding, unspecified Plan Pt is scheduled for a review of her ultrasound and an endometrial biopsy and possible Mirena insertion. She has been seen for menorrhagia and sometime ago she was seen in the emergency room and transferred to [facility] for this same problem they treated her with a tapering dose of control pills. During evaluation at the last visit cultures were done as well and bacterial vaginosis was diagnosed she called this week sing she was still bleeding very heavily and was having a very hard time tolerating the Flagyl because of the side effects. Patient presents here today but says her back is sore and she has not been feeling great but the bleeding has completely stopped and it stopped right after the heavy bleeding that had prompted her phone call earlier this week and she is still taking the control pills that she was given at [facility] she was given a 3 month supply and she feels it is already helping her hair growth on her face from her PCOS and all she wants to do today is review the ultrasound and she promises she will come back for an endometrial biopsy. She also had blood work done it showed a drop in her H&H but not into the anemic range. Her TSH is within the normal range but ever so slightly elevated. She has her next appointment with her primary coming up in September so may want to review that then. She promises to reschedule the endometrial biopsy I did review the ultrasound with her which was within complete bleed normal limits. She has decided since the bleeding has stopped that she will have the endometrial biopsy 1st and return for review of that and then return for Mirena if that is this the plan she decides on after that Coding Level of Care Code Est Pt Level 3 (63610) Diagnoses PCOS (polycystic ovarian syndrome) E28.2 Abnormal uterine bleeding (AUB) N93.9
== END 2023-07-06 11:42 | disposition home or self-care (01) ==
PROVIDERS: PCP Nurse Practitioner Family; Visit Provider Advanced Practice Midwife
DX: E28.2 Polycystic ovarian syndrome (principal); N93.9 Abnormal uterine and vaginal bleeding, unspecified
CPT/HCPCS: 99213

== ENCOUNTER → 2023-07-06 10:00 | Outpatient (BNVA) | payer OTHER, SELFPAY | PROVIDERS: PCP Nurse Practitioner Family; Visit Provider Advanced Practice Midwife | DX: E28.2 Polycystic ovarian syndrome (principal); N93.9 Abnormal uterine and vaginal bleeding, unspecified | CPT/HCPCS: 99212 ==

== ENCOUNTER 2023-07-10 10:29 | Outpatient (AMB) | payer OTHER, SELFPAY ==
[2023-07-10 10:47] VITALS: BP 124/70; BMI 31.0
--- NOTE | 2023-07-10 10:47 | MHC.OFFVIS ---
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 The following workup was done.: H&H= 11.8/35.2 TSH, GC and chlamydia were negative. Co testing was done in was negative. Pelvic ultrasound was unremarkable The patient went to [facility] emergency room with heavy vaginal bleeding where the workup was negative and she was started on control pills few weeks ago since then her bleeding stopped. The patient has been complaining of abnormal uterine bleeding over the last year associated with hair growth PFSH Medical History Vitamin D deficiency Anxiety Post-concussion headache Supervision of normal in second trimester Second trimester Bleeding in early History of 2019 novel coronavirus disease (COVID-19) Less than 8 weeks gestation of Threatened Anemia Surgical History H/O tubal ligation Family History Mother Hx of diabetes mellitus Hx of primary hypertension History of hyperthyroidism Father Hx of gastrointestinal disease Maternal Grandmother No problems noted. Maternal Grandfather Hx of diabetes mellitus Paternal Grandmother No problems noted. Paternal Grandfather No problems noted. Sister Hx of anxiety disorder History of depression Sister History of depression Hx of anxiety disorder Sister Hx of anxiety disorder History of depression Sister History of depression Hx of anxiety disorder Housing: Apartment Alcohol intake: never Patient Tobacco Use Status: Never used Tobacco Tobacco use type: Cigarette e-Cigarette/Vaping Use: Never Used Substance Use Type: Marijuana service: No Current occupational status: employed Cognitive needs: No Hearing needs: No Vision needs: No Female Reproductive History Menstrual Age of Menarche: 12 control method: none Date of last pap smear: 03/26/19 (negative) Review of Systems Const All systems reviewed & are unremarkable except as noted in HPI and below Physical Exam Vital Signs: Last Vital Signs BP 124/70 07/10/23 10:47 BMI result Body Mass Index 31.0 General: Yes no CVA tenderness External Female Exam: normal external appearance and normal appearance of the urethra Speculum Exam - Vagina: normal appearance of the vagina, normal palpation, no lesions and no masses Speculum Exam - Cervix: normal appearance of the cervix, normal palpation, no lesions, no masses and nontender Bimanual exam- vagina & uterus: normal bimanual exam, normal palpation, uterine size normal, normal palpation, uterine shape normal, No Cervical tenderness present and non-tender Bimanual Exam- Adnexa, other: normal adnexae Back/Spine/Pelvis Back: no CVA tenderness Office Procedures Endometrial Biopsy Details: The patient was counseled regarding the indication and benefits of endometrial sampling to rule out endometrial pathology including not limited to endometrial hyperplasia or endometrial cancer and others; The alternatives (Either do nothing vs. hysteroscopy D&C) & the risks were discussed with the patient including but not limited: pain, uterine perforation, bleeding, infection, possible injury to bladder, bowel, ureter, possible need for blood transfusion with all its possible risks. The patient verbalized understanding all questions answered and signed consent. Urine test done in the office was negative The patient was placed into the dorsal lithotomy position; a speculum was inserted in the vagina. Using aseptic technique for the procedure, the cervix was cleansed with Betadine. The anterior lip of the cervix was grasped with a single tooth tenaculum. The uterus was sounded to 7 cm with a 4 mm Pipelle was used. Tissues samples were obtained and placed in formalin, in a patient labeled container and sent to the pathology department. At the end of the procedure, there was minimal bleeding noted The patient tolerated the procedure well and was discharged in good condition with the following instructions: Nothing in the vagina until the bleeding stops. No sex until the bleeding stops, to call if any of the following occurs: fever (>100.4), flu-like symptoms, abdominal pain, heavy bleeding, four smelling vaginal discharge. The patient was instructed to schedule a Follow up appointment in 2 weeks to discuss pathology results of the biopsy and treatment options. This note was generated with a voice recognition program. Some errors may have been overlooked during the review of this note. Sometimes these errors may affect the content or meaning of a given sentence. [id number] Biopsy Results AMB Test Urine AMB Test Urine Negative Last Edit by TERRY Bernabe on 07/10/23 10:51 Assessment & Plan Assessment & Plan (1) Abnormal uterine bleeding (AUB): Comment: With hair growth Possible PCOS Code(s): N93.9 - Abnormal uterine and vaginal bleeding, unspecified Plan: Instructions given the patient to continue control pills. Will order 17 hydroxyprogesterone, total and free testosterone, proceed with endometrial biopsy to rule out endometrial pathology. EMB done, see procedure note Instructions given the patient to schedule a 2 week follow-up appointment and a 3 months control pill follow-up appointment. Orders: Orders AMB HCG Urine Test Today Z32.02 - Encounter for test, result negative AMB Endometrial Biopsy Today N93.9 - Abnormal uterine and vaginal bleeding, unspecified Coding Level of Care Code Est Pt Level 3 (75235) Procedure Only Diagnoses Abnormal uterine bleeding (AUB) N93.9 CPT Codes Endometrial Biopsy - CPT: 93264-Hlqkzhgvydx Biopsy ([id number])
== END 2023-07-10 11:04 | disposition home or self-care (01) ==
LOC: HO.HWS 10:29
PROVIDERS: PCP Nurse Practitioner Family; Visit Provider Obstetrics & Gynecology
DX: N93.9 Abnormal uterine and vaginal bleeding, unspecified (principal); Z32.02 Encounter for pregnancy test, result negative
CPT/HCPCS: 58100

== ENCOUNTER 2023-07-10 10:29 | Outpatient (REF) | payer OTHER, SELFPAY | END 2023-07-10 10:30 | disposition home or self-care (01) | LOC: HO.LNP 10:29 | PROVIDERS: PCP Nurse Practitioner Family; Visit Provider Obstetrics & Gynecology | DX: N93.9 Abnormal uterine and vaginal bleeding, unspecified (principal) | CPT/HCPCS: 58100; 81025; 88305 ==

== ENCOUNTER 2023-07-10 11:11 | Outpatient (REF) | payer OTHER, SELFPAY ==
[2023-07-16 23:48] LABS: Testosterone, Free 7.2 pg/mL (0.1-6.4); Testosterone, Total 56 ng/dL (2-45)
== END 2023-07-10 11:12 | disposition home or self-care (01) ==
LOC: HO.LAB 11:11
PROVIDERS: PCP Nurse Practitioner Family; Visit Provider Obstetrics & Gynecology
DX: L68.0 Hirsutism (principal)
CPT/HCPCS: 36415; 83498; 84402; 84403

== ENCOUNTER 2023-07-18 15:35 | Outpatient (AMB) | payer OTHER, SELFPAY ==
[2023-07-18 16:06] VITALS: BP 120/68; BMI 31.0
--- NOTE | 2023-07-18 16:06 | MHC.OFFVIS ---
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 The pathology showed the following: Benign proliferative endometrium with chronic endometritis and focal breakdown; no atypia or carcinoma (see comment). Comment: Some fragments are suggestive of benign polyps, which may cause chronic endometritis PFSH Medical History Vitamin D deficiency Anxiety Post-concussion headache Supervision of normal in second trimester Second trimester Bleeding in early History of 2019 novel coronavirus disease (COVID-19) Less than 8 weeks gestation of Threatened Anemia Surgical History H/O tubal ligation Family History Mother Hx of diabetes mellitus Hx of primary hypertension History of hyperthyroidism Father Hx of gastrointestinal disease Maternal Grandmother No problems noted. Maternal Grandfather Hx of diabetes mellitus Paternal Grandmother No problems noted. Paternal Grandfather No problems noted. Sister Hx of anxiety disorder History of depression Sister History of depression Hx of anxiety disorder Sister Hx of anxiety disorder History of depression Sister History of depression Hx of anxiety disorder Social History Housing: Apartment Alcohol intake: never Patient Tobacco Use Status: Never used Tobacco Tobacco use type: Cigarette e-Cigarette/Vaping Use: Never Used Substance Use Type: Marijuana service: No Current occupational status: employed Cognitive needs: No Hearing needs: No Vision needs: No Female Reproductive History Menstrual Age of Menarche: 12 Date of last menstrual period: 06/17/20 control method: permanent sterilization Total pregnancies: 2 Full term: 2 Date of last pap smear: 03/26/19 (negative) History of abnormal pap smear: Yes (2016 2014 KAYA 1) Review of Systems Card Reports as per HPI and Reports no additional complaints Resp Reports as per HPI and Reports no additional complaints GI Reports as per HPI and Reports no additional complaints Reports as per HPI Physical Exam Vital Signs: Last Vital Signs BP 120/68 07/18/23 16:06 BMI result Body Mass Index 31.0 Const General: cooperative, healthy appearing and comfortable Chest Chest palpation & inspection: normal inspection of the chest and normal palpation of entire chest wall Breast/axilla inspection: normal inspection of the breasts and normal inspection of the axillae Breast/axilla palpation: normal palpation of the breasts, normal palpation of the axillae and no axillary lymphadenopathy Resp Effort & Inspection: normal respiratory effort Auscultation: clear to auscultation bilaterally Percussion: percussion normal Cardio Palpation: normal PMI Rate: regular rate Rhythm: regular rhythm Heart sounds: no murmurs and no rubs Peripheral pulses: Peripheral pulses 2+ throughout GI Inspection: Yes normal to inspection Palpation (GI): Soft to palpation, nontender, no guarding, not rigid and No hepatosplenomegaly present Percussion: Yes normal to percussion Auscultation: normal bowel sounds Rectal Exam - Female: deferred Assessment & Plan Assessment & Plan (1) Abnormal uterine bleeding (AUB): Comment: Fragments suggestive of Endometrial polyp on EMB pathology Code(s): N93.9 - Abnormal uterine and vaginal bleeding, unspecified Plan: Discussed with the patient the results the pathology, fragments suggestive of endometrial polyp, recommended hysteroscopy D&C possible polypectomy/myomectomy. Discussed with the patient the procedure , all benefits and risks including but not limited to inability to complete the procedure , bleeding, infection, possible need for blood transfusion with all its risk ( HIV,syphilis, Hepatitis, anaphylaxis shock, others..), injury to bladder, rectum, possible need for laparoscopy/laparotomy or hysterectomy. The patient verbalized understanding and signed the consent. Instructions given the patient to schedule a 2 week postoperative appointment Coding Level of Care Code Est Pt Level 3 (91160) Diagnoses Abnormal uterine bleeding (AUB) N93.9
== END 2023-07-18 16:23 | disposition home or self-care (01) ==
LOC: HO.HWS 15:35
PROVIDERS: PCP Nurse Practitioner Family; Visit Provider Obstetrics & Gynecology
DX: N93.9 Abnormal uterine and vaginal bleeding, unspecified (principal)
CPT/HCPCS: 99213

== ENCOUNTER → 2023-07-18 15:35 | Outpatient (BNVA) | payer OTHER, SELFPAY | PROVIDERS: PCP Nurse Practitioner Family; Visit Provider Obstetrics & Gynecology | DX: N93.9 Abnormal uterine and vaginal bleeding, unspecified (principal) | CPT/HCPCS: 99212 ==

== ENCOUNTER 2023-07-20 10:09 | Day surgery (SDC) | payer OTHER, SELFPAY ==
--- NOTE | 2023-07-19 13:37 | HO.ANESPROP2 ---
Documented by User: Estefany Burrell NP 07/19/23 13:40 HPI - Anesthesia Eval Consult details Narrative: 33yo F for D&C Hysteroscopy,poss myomectomy,poss polypectomy Scabies treatment with permethrin 05/2023 s/p tubal PMFSH Active Problems Active Problems: All Active Problems (Updated 07/18/23 @ 16:17 by Hernandez Thomas MD) PCOS (polycystic ovarian syndrome) (Acute) Abnormal uterine bleeding (AUB) (Acute) Scabies exposure (Acute) Vitamin D deficiency (Acute) Anxiety (Acute) Post-concussion headache (Acute) Breast lump (Acute) Nausea and vomiting during (Acute) History of 2019 novel coronavirus disease (COVID-19) (Acute) Past Medical History Medical History Vitamin D deficiency Anxiety Post-concussion headache Supervision of normal in second trimester Second trimester Bleeding in early History of 2019 novel coronavirus disease (COVID-19) Less than 8 weeks gestation of Threatened Anemia Family History Family History Mother Hx of diabetes mellitus Hx of primary hypertension History of hyperthyroidism Father Hx of gastrointestinal disease Maternal Grandmother No problems noted. Maternal Grandfather Hx of diabetes mellitus Paternal Grandmother No problems noted. Paternal Grandfather No problems noted. Sister Hx of anxiety disorder History of depression Sister History of depression Hx of anxiety disorder Sister Hx of anxiety disorder History of depression Sister History of depression Hx of anxiety disorder Surgical History Surgical History Hx of myringotomy H/O tubal ligation Social History Social History Housing: Apartment Alcohol intake: never Patient Tobacco Use Status: Never used Tobacco Tobacco use type: Cigarette e-Cigarette/Vaping Use: Never Used Use of substances other than those prescribed or required for medical reasons: Yes Substance Use Type: Marijuana Substance Use Frequency: Daily Are you DNR?: No Advance Directives: No Advance Directives Information Provided: Yes service: No Current occupational status: employed Cognitive needs: No Hearing needs: No Vision needs: No Meds Allergies Allergy/AdvReac Type Severity Reaction Status Date / Time No Known Allergies Allergy Verified 07/20/23 11:00 Home Medications Medication Instructions Recorded Confirmed Last Taken Type ondansetron HCl 4 mg tablet 4 mg PO Q6H 06/18/23 07/20/23 Unknown History desogestrel 0.15 mg-ethinyl 1 tab PO DAILY 07/06/23 07/20/23 Unknown History estradiol 0.03 mg tablet (Apri) Assessment and Plan Assessment Anesthesia Assessment: Chart Reviewed Documented by User: Austin Paredes MD 07/20/23 11:08 [facility] Past Medical History Medical History Vitamin D deficiency Anxiety Post-concussion headache Supervision of normal in second trimester Second trimester Bleeding in early History of 2019 novel coronavirus disease (COVID-19) Less than 8 weeks gestation of Threatened Anemia Family History Family History Mother Hx of diabetes mellitus Hx of primary hypertension History of hyperthyroidism Father Hx of gastrointestinal disease Maternal Grandmother No problems noted. Maternal Grandfather Hx of diabetes mellitus Paternal Grandmother No problems noted. Paternal Grandfather No problems noted. Sister Hx of anxiety disorder History of depression Sister History of depression Hx of anxiety disorder Sister Hx of anxiety disorder History of depression Sister History of depression Hx of anxiety disorder Family history of problems with anesthesia: No Surgical History Surgical History Hx of myringotomy H/O tubal ligation History of Problems with Anesthesia: No Social History Social History Housing: Apartment Alcohol intake: never Patient Tobacco Use Status: Never used Tobacco Tobacco use type: Cigarette e-Cigarette/Vaping Use: Never Used Use of substances other than those prescribed or required for medical reasons: Yes Substance Use Type: Marijuana Substance Use Frequency: Daily Are you DNR?: No Advance Directives: No Advance Directives Information Provided: Yes service: No Current occupational status: employed Cognitive needs: No Hearing needs: No Vision needs: No Meds Allergies Allergy/AdvReac Type Severity Reaction Status Date / Time No Known Allergies Allergy Verified 07/20/23 11:00 Home Medications Medication Instructions Recorded Confirmed Last Taken Type ondansetron HCl 4 mg tablet 4 mg PO Q6H 06/18/23 07/20/23 Unknown History desogestrel 0.15 mg-ethinyl 1 tab PO DAILY 07/06/23 07/20/23 Unknown History estradiol 0.03 mg tablet (Apri) Exam Airway Mallampati Class: III TM Dist: >3cm Neck ROM: Full Loose/Missing/Broken Teeth: No Heart: [id number] Lungs: cta b/l Assessment and Plan Assessment Anesthesia Assessment: Anesthesia Plan Discussed Final Anesthetic Review Family History of Problems with Anesthesia: No History of Problems with Anesthesia: No NPO: Yes ASA Class: II Final Preanesthetic Review: No Changes in Pt Med Stat, Meds/Allgs Chart Reviewed, Consent Obtained/Reviewed and Anes Risks/Benef Reviewed Patient Risk: Intermediate Procedure Risk: Intermediate Assessment/Block/Sedation in SS: Assess/Block/Sedation-SS Anesthetic Plan Anesthetic Plan: GA and Agree w/ Assess. and Plan Disposition: Standard PACU
[2023-07-20] VITALS (7 sets, daily range): BP systolic 106–136; BP diastolic 66–85; PULSE 58–73; RESP 16–18; TEMP 36.1–36.5; O2SAT 97–99; BMI 31.0
[2023-07-20 10:52] LABS: UPreg QC Valid YES; Urine Pregnancy NEGATIVE (NEGATIVE)
--- NOTE | 2023-07-20 10:55 | MHC.SHP ---
Pre-Procedural Eval Section A Date of Service: 07/20/23 The patient is an INPATIENT: No Changes since office visit: No Cold of Flu in the past 2 weeks, No New Medical Problems, No Changes in Medication and No Patient answered all questions The History & Physical has been completed within 30 days and I have reviewed it.: Yes Section B Chief Complaint: Abnormal uterine and vaginal bleeding, unspecified Allergies: Allergies Allergy/AdvReac Type Severity Reaction Status Date / Time No Known Allergies Allergy Verified 07/18/23 16:06 Plan Diagnosis/Plan: Unchanged I have reviewed the history and physical and performed a pertinent physical examination on my patient. No changes have occurred unless specified. Time Spent With Patient Time: Total time managing care of this patient today ____ minutes.
[2023-07-20] MEDS: Lactated Ringers 1,000 ML 100 ML IVCONT (11:05)
--- NOTE | 2023-07-20 11:40 | P.OP_ITS ---
Operative Note Operative Note Date of Service: 07/20/23 Narrative: Preop Diagnosis: Abnormal uterine bleeding with Endometrial polyp on EMB pathology Operation: Diagnostic Hysteroscopy, Dilataion & Curettage and polypectomies Post Op Diagnosis: Endometrial Polyp QBL: Minimal Anesthesia: GLMA Surgeon: Hernandez Thomas MD Screen Printing Supervisor: None Complication: None Pathology: Endometrial Scrapings, Endometrial polyp Procedure: The patient was put in the dorsal lithotomy position, scrubbed, and draped in the usual manner. A sterile speculum was inserted in the patient's vagina. The anterior lip of the cervix was grasped with a single tooth tenaculum. The cervix was dilated up to 5 mm, then the scope was inserted in the patient's uterus. Inspection revealed multiple small endometrial polyps. The Myosure Reach device was used; it was introduced through the operative channel and polypectomies were done with no complications. The scope was then taken out from the uterine cavity, sharp curettings was carried on with minimal to moderate amount of tissues retrieved. At the end of the procedure, all instruments were taken out of the patient uterine and vaginal cavity. The single tooth tenaculum was removed and homeostasis was assured using pressure,. The patient tolerated the procedure well and was transferred to the PACU in a stable condition.
--- NOTE | 2023-07-20 11:40 | PM.OP ---
Brief Operative Note Date of Service: 07/20/23 Pre-op diagnosis: AUB with endometrial polyp on EMB pathology Post-op diagnosis: same (Multiple endometrial polyps) Procedure: Hysteroscopy D&C, Polypectomies Surgeon: Hernandez Thomas MD Anesthesia: GLMA Was an Flex O Writer Operator used for this Procedure?: No Estimated blood loss (mL): 0 Pathology: other (Endometrial Scrapping. Polyps) Condition: stable Disposition: PACU
[2023-07-20] MEDS: oxyCODONE HCl Immed Release 5 MG TABLET PO (12:10)
[2023-07-20] MEDS: Acetaminophen 325 MG TABLET 650 MG PO (12:10)
== END 2023-07-20 13:31 | disposition home or self-care (01) ==
PROVIDERS: PCP Nurse Practitioner Family; Visit Provider Obstetrics & Gynecology
PROC: 0UDB8ZZ Extraction of Endometrium, Via Natural or Artificial Opening Endoscopic (ICD-10-PCS; CPT 58558; principal; 2023-07-20 11:30)
DX: N93.9 Abnormal uterine and vaginal bleeding, unspecified (principal); N84.0 Polyp of corpus uteri; D64.9 Anemia, unspecified; E55.9 Vitamin D deficiency, unspecified; F12.90 Cannabis use, unspecified, uncomplicated; Z98.51 Tubal ligation status; Z86.16 Personal history of COVID-19
CPT/HCPCS: 58558; 81025; 88305; J0131; J1100; J1885; J2405; J2704; J3010

== ENCOUNTER → 2023-07-20 10:09 | Outpatient (BNV) | payer OTHER, SELFPAY | PROVIDERS: PCP Nurse Practitioner Family; Visit Provider Obstetrics & Gynecology | DX: N93.9 Abnormal uterine and vaginal bleeding, unspecified (principal); N84.0 Polyp of corpus uteri | CPT/HCPCS: 58558 ==

== ENCOUNTER 2023-10-02 12:34 | Outpatient (AMB) | payer OTHER, SELFPAY ==
--- NOTE | 2023-10-02 12:38 | A.OFFVIS_ITS ---
Intake Vital Signs 10/02/23 12:39 Height 5 ft 6 in Weight 194 lb BMI 31.3 BP 110/76 Intake Visit Reasons: control follow up Allergies No Known Allergies Allergy (Verified 10/02/23 12:40) Is last menstrual period known: Yes Last menstrual period: 09/19/23 HPI HPI Comments History of Present Illness Details The patient is presenting post hysteroscopy D&C polypectomy with no complaints minimal vaginal bleeding no feverishness chills or abdominal pain. The pathology showed the following: A. Endometrium, polypectomy: Fragments of benign endometrial polyp with inactive endometrium; negative for atypia, hyperplasia or malignancy. B. Endometrium, curettage: Fragments of inactive endometrium with stromal breakdown; negative for atypia, hyperplasia or malignancy The AUB workup done so far included the following: H&H 11.8/35.2 TSH, prolactin within normal Total testosterone and free testosterone 56 and 7.2 respectively, 17 hydroxy progesterone within normal GC/CT were negative Pelvic ultrasound within normal The patient has been on control pill with no complaint. The patient is doing well with no complaints, she would like a refill on her prescription [facility] Medical History Vitamin D deficiency Anxiety Post-concussion headache Supervision of normal in second trimester Second trimester Bleeding in early History of 2019 novel coronavirus disease (COVID-19) Less than 8 weeks gestation of Threatened Anemia Surgical History Hx of myringotomy H/O tubal ligation Family History Mother Hx of diabetes mellitus Hx of primary hypertension History of hyperthyroidism Father Hx of gastrointestinal disease Maternal Grandmother No problems noted. Maternal Grandfather Hx of diabetes mellitus Paternal Grandmother No problems noted. Paternal Grandfather No problems noted. Sister Hx of anxiety disorder History of depression Sister History of depression Hx of anxiety disorder Sister Hx of anxiety disorder History of depression Sister History of depression Hx of anxiety disorder Social History Housing: Apartment Alcohol intake: never Patient Tobacco Use Status: Never used Tobacco Tobacco use type: Cigarette e-Cigarette/Vaping Use: Never Used Substance Use Type: Marijuana service: No Current occupational status: employed Cognitive needs: No Hearing needs: No Vision needs: No Female Reproductive History Menstrual Age of Menarche: 12 Duration of menses: 6-7 days Date of last menstrual period: 09/19/23 control method: pills Review of Systems Const All systems reviewed & are unremarkable except as noted in HPI and below Reports as per HPI and Reports no additional complaints GI Reports no additional complaints Reports no additional complaints Physical Exam Vital Signs: Last Vital Signs BP 110/76 10/02/23 12:39 BMI result Body Mass Index 31.3 Assessment & Plan Assessment & Plan (1) Abnormal uterine bleeding (AUB): Comment: PCOS Code(s): N93.9 - Abnormal uterine and vaginal bleeding, unspecified Plan: Apri refill sent to the patient's pharmacy Instructions given to the patient to take 1 tablet p.o. q.d. continuously for 84 days with 6 days of were sent to patient's pharmacy with 3 refills. Instructions given the patient to schedule an annual exam within the coming 2-3 months. All questions answered, the patient verbalized understanding Medications: Changed From desogestrel-ethinyl estradiol 0.15-0.03 mg (Apri) 1 tab PO DAILY To desogestrel-ethinyl estradiol 0.15-0.03 mg (Apri) 1 tab po daily x84 days then 6 days off 1 tab PO DAILY 84 tabs 3RF Coding Level of Care Code Est Pt Level 3 (22169) Diagnoses Abnormal uterine bleeding (AUB) N93.9
[2023-10-02 12:39] VITALS: BP 110/76; BMI 31.3
== END 2023-10-02 13:01 | disposition home or self-care (01) ==
LOC: HO.HWS 12:34
PROVIDERS: PCP Nurse Practitioner Family; Visit Provider Obstetrics & Gynecology
DX: N93.9 Abnormal uterine and vaginal bleeding, unspecified (principal)
CPT/HCPCS: 99213

== ENCOUNTER → 2023-10-02 12:34 | Outpatient (BNVA) | payer OTHER, SELFPAY | PROVIDERS: PCP Nurse Practitioner Family; Visit Provider Obstetrics & Gynecology | DX: N93.9 Abnormal uterine and vaginal bleeding, unspecified (principal) | CPT/HCPCS: 99212 ==

== ENCOUNTER 2023-10-24 08:47 | Outpatient (AMB) | payer OTHER, SELFPAY ==
--- NOTE | 2023-10-24 08:57 | A.OFFPC_ITS ---
Vital Signs 10/24/23 09:00 Height 5 ft 6 in Weight 197 lb 4 oz BMI 31.8 BP 120/72 Blood Pressure Location Lt brachial Position Sitting Pulse 68 Pulse Source Pulse Oximeter Pulse Oximetry (%) 98 Oxygen Delivery Method Room Air Intake Visit Reasons: PE Intake Note: Patient is here today for a physical. 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 She recently had a work physical and blood work was done. Patient complains of low back pain. Able to function and do all activities of daily living. Pain is in the lower back radiating into her legs. Symptoms are worse when she is sitting down. [facility] Medical History (Updated 10/24/23 @ 09:36 by Ignacio Auguste MD) PCOS (polycystic ovarian syndrome) Vitamin D deficiency Anxiety Post-concussion headache Supervision of normal in second trimester Second trimester Bleeding in early History of 2019 novel coronavirus disease (COVID-19) Less than 8 weeks gestation of Threatened Anemia Surgical History (Updated 10/24/23 @ 09:05 by TERRY Molina) History of surgery Hx of myringotomy H/O tubal ligation Family History (Updated 10/24/23 @ 09:05 by TERRY Molina) Mother Hx of diabetes mellitus Hx of primary hypertension History of hyperthyroidism Father Hx of gastrointestinal disease Substance use disorder Maternal Grandmother No problems noted. Maternal Grandfather Hx of diabetes mellitus Paternal Grandmother No problems noted. Paternal Grandfather No problems noted. Sister Hx of anxiety disorder History of depression Sister History of depression Hx of anxiety disorder Sister Hx of anxiety disorder History of depression Sister History of depression Hx of anxiety disorder Other Mental health disorder Social History Housing: Apartment Alcohol intake: never Patient Tobacco Use Status: Never used Tobacco Tobacco use type: Cigarette e-Cigarette/Vaping Use: Never Used Second Hand Smoke Exposure: No Substance Use Type: Marijuana service: No Current occupational status: employed Cognitive needs: No Hearing needs: No Vision needs: No Female Reproductive History Menstrual Age of Menarche: 12 Questionnaire PHQ-9 Over the last 2 weeks, how often have you been bothered by any of the following problems? 1. Little interest or pleasure in doing things: not at all 2. Feeling down, depressed, or hopeless: not at all 3. Trouble falling or staying asleep, or sleeping too much: not at all 4. Feeling tired or having little energy: not at all 5. Poor appetite or overeating: not at all 6. Feeling bad about yourself - or that you are a failure or have let yourself or your family down: not at all 7. Trouble concentrating on things, such as reading the newspaper or watching television: not at all 8. Moving or speaking so slowly that other people could have noticed. Or the opposite - being so fidgety or restless that you have been moving around a lot more than usual: not at all 9. Thoughts that you would be better off or of hurting yourself in some way: not at all Total score: 0 Depression Screening Interpretation: Negative Depression Screening Done: Yes Source: Developed by Drs. Reyes Jimenez, Deepali Evans, Prem Marion and colleagues, with an educational efren from [employer]. Thrive Questionnaire Date Thrive assessed: 10/24/23 I am a: Patient What is your living situation today?: I have a steady place to live Within the past 12 months, did the food you bought not last and you didn't have the money to get more?: Never true Within the past 12 months, did you worry whether your food would run out before you got money to buy more?: Never true Do you have trouble paying for medicines?: No Do you have trouble getting transportation to medical appointments?: No Do you have trouble paying your heating and electricity bill?: No Do you have trouble taking care of your child, family member or friend?: No Do you have trouble with day-to-day activities such as bathing, preparing meals, shopping, managing finances, etc.?: No Are you currently unemployed and looking for a job?: No Are you interested in more education?: No Currently or been in a relationship where the following occur: no concerns reported THRIVE Score: 0 AUDIT C Alcohol Use Questionnaire (AUDIT-C) 1. How often do you have a drink containing alcohol?: Never Total Score: 0 YADIRA-7 AMB Questionnaire YADIRA-7 Date YADIRA - 7 assessed: 10/24/23 Feeling nervous, anxious, or on edge: 0 = Not at all Not being able to stop or control worryin = Not at all Worrying too much about different things: 0 = Not at all Trouble relaxin = Not at all Being so restless that it is hard to sit still: 0 = Not at all Becoming easily annoyed or irritable: 0 = Not at all Feeling afraid as if something awful might happen: 0 = Not at all Total YADIRA-7 score (0-4 normal; 5-9 mild; 10-14 moderate; 15-21 severe): 0 Source: Developed by Drs. Reyes Jmienez, Deepali Evans, Prem Marion and colleagues, with an educational efren from [employer]. Physical exam (Primary Care) Vital Signs: Last Vital Signs Pulse 68 10/24/23 09:00 BP 120/72 10/24/23 09:00 Pulse Ox 98 10/24/23 09:00 Oxygen Delivery Method Room Air 10/24/23 09:00 Care Plan Goal for BP management: Blood pressure is in range. BMI result Body Mass Index 31.8 BMI Assessment/Plan discussion: High (1 lb per week weight loss suggested.) BMI High, discussed plan: lifestyle, weight reduction and dietary Tobacco/Smoking Status: Tobacco use Status Tobacco use date assessed 10/24/23 10/24/23 09:07 Patient Tobacco Use Status Never used Tobacco 10/24/23 09:07 Tobacco use type Cigarette 10/24/23 09:07 e-Cigarette/Vaping Use Never Used 10/24/23 09:07 PHQ-9: PHQ-9 Score PHQ-9: Total score 0 10/24/23 09:07 Depression Screening Interpretation: Negative Thrive Assessment: Date of Thrive Assessment Date Thrive assessed 10/24/23 10/24/23 09:07 Currently or been in a relationship where the following occur: no concerns reported Const General: cooperative and healthy appearing Nutritional Appearance: well nourished Orientation/consciousness: patient oriented x3 Limitations: no limitations HENMT Head: Yes normal to inspection Eyes General: appearance normal, both eyes and all related structures Neck Neck: Yes normal visual inspection Chest Chest palpation & inspection: normal palpation of entire chest wall Resp Effort & Inspection: normal respiratory effort Neuro General: patient oriented x3 Assessment and Plan Assessment & Plan (1) PCOS (polycystic ovarian syndrome): Code(s): E28.2 - Polycystic ovarian syndrome Plan: A1c will be added to the regimen. (2) Annual physical exam: Code(s): Z00.00 - Encounter for general adult medical examination without abnormal findings Plan: Will review blood work done during the employment physical and add extra blood work if needed. Coding Level of Care Code Est Pt Prev Care 18-39y(13725) Diagnoses PCOS (polycystic ovarian syndrome) E28.2 Annual physical exam Z00.00
[2023-10-24 09:00] VITALS: BP 120/72; PULSE 68; O2SAT 98; BMI 31.8
== END 2023-10-24 09:34 | disposition home or self-care (01) ==
PROVIDERS: PCP Nurse Practitioner Family; Visit Provider Internal Medicine
DX: Z00.00 Encounter for general adult medical examination without abnormal findings (principal); E28.2 Polycystic ovarian syndrome
CPT/HCPCS: 99395

== ENCOUNTER 2023-11-08 14:51 | Outpatient (REF) | payer OTHER, SELFPAY ==
[2023-11-14 00:54] LABS: HPV mRNA E6/E7 rflx Not Detected (Not Detected)
== END 2023-11-08 14:52 | disposition home or self-care (01) ==
LOC: HO.LNP 14:51
PROVIDERS: PCP Nurse Practitioner Family; Visit Provider Obstetrics & Gynecology
DX: Z01.419 Encounter for gynecological examination (general) (routine) without abnormal findings (principal); Z11.51 Encounter for screening for human papillomavirus (HPV); I10 Essential (primary) hypertension
CPT/HCPCS: 87624; 88142; 99395

== ENCOUNTER 2023-11-08 14:51 | Outpatient (AMB) | payer OTHER, SELFPAY ==
[2023-11-08 15:17] VITALS: BP 140/90; BMI 31.8
--- NOTE | 2023-11-08 15:17 | A.OFFVIS_ITS ---
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 No complaints. Last Pap/HPV was in 04/05 was negative [facility] Medical History PCOS (polycystic ovarian syndrome) Vitamin D deficiency Anxiety Post-concussion headache Supervision of normal in second trimester Second trimester Bleeding in early History of 2019 novel coronavirus disease (COVID-19) Less than 8 weeks gestation of Threatened Anemia Surgical History History of surgery Hx of myringotomy H/O tubal ligation Family History Mother Hx of diabetes mellitus Hx of primary hypertension History of hyperthyroidism Father Hx of gastrointestinal disease Substance use disorder Maternal Grandmother No problems noted. Maternal Grandfather Hx of diabetes mellitus Paternal Grandmother No problems noted. Paternal Grandfather No problems noted. Sister Hx of anxiety disorder History of depression Sister History of depression Hx of anxiety disorder Sister Hx of anxiety disorder History of depression Sister History of depression Hx of anxiety disorder Other Mental health disorder Social History Housing: Apartment Alcohol intake: never Patient Tobacco Use Status: Never used Tobacco Tobacco use type: Cigarette e-Cigarette/Vaping Use: Never Used Second Hand Smoke Exposure: No Substance Use Type: Marijuana service: No Current occupational status: employed Cognitive needs: No Hearing needs: No Vision needs: No Female Reproductive History Menstrual Age of Menarche: 12 Duration of menses: 3-5 days control method: permanent sterilization Total pregnancies: 3 Full term: 2 Number of Living Children: 2 Ab induced: 1 Date of last pap smear: 03/26/19 (negative) History of abnormal pap smear: Yes (2016 2014 KAYA 1) Review of Systems Const All systems reviewed & are unremarkable except as noted in HPI and below Card Reports as per HPI Resp Reports as per HPI GI Reports as per HPI and Reports no additional complaints Reports as per HPI Physical Exam Vital Signs: Last Vital Signs BP 140/90 H 11/08/23 15:17 BMI result Body Mass Index 31.8 Const General: cooperative, healthy appearing and comfortable Chest Chest palpation & inspection: normal inspection of the chest and normal palpation of entire chest wall Breast/axilla inspection: normal inspection of the breasts and normal inspection of the axillae Breast/axilla palpation: normal palpation of the breasts, normal palpation of the axillae and no axillary lymphadenopathy Resp Effort & Inspection: normal respiratory effort Auscultation: clear to auscultation bilaterally Percussion: percussion normal Cardio Palpation: normal PMI Rate: regular rate Rhythm: regular rhythm Heart sounds: no murmurs and no rubs Peripheral pulses: Peripheral pulses 2+ throughout GI Inspection: Yes normal to inspection Palpation (GI): Soft to palpation, nontender, no guarding, not rigid and No hepatosplenomegaly present Percussion: Yes normal to percussion Auscultation: normal bowel sounds Rectal Exam - Female: deferred General: Yes bladder normal to palpation External Female Exam: No lesion Speculum Exam - Vagina: normal appearance of the vagina, normal palpation, normal vaginal discharge and not erythematous Speculum Exam - Cervix: normal appearance of the cervix and normal palpation Bimanual exam- vagina & uterus: normal bimanual exam, normal palpation, uterine size normal, bladder normal to palpation, consistency normal and normal palpation Bimanual Exam- Adnexa, other: normal adnexae, no masses and no tenderness Assessment & Plan Assessment & Plan (1) Well woman exam: Code(s): Z01.419 - Encounter for gynecological examination (general) (routine) without abnormal findings Plan: Cotesting done. Counseled the patient about the recommended dietary allowance of 1000 mg of Calcium & 600 IU of vitamin D. The patient was instructed to perform monthly self-breast exams and to schedule an annual exam in a year; All questions answered and the patient verbalized understanding. Instructed the patient to schedule annual exam in a year (2) Hypertension: Comment: Possibly control pill induced Code(s): I10 - Essential (primary) hypertension Plan: Pressure was mildly elevated, recommended to discontinue control pills anjel. Instructions given the patient to monitor her blood pressure in the coming 3 months if persistently elevated after 3 months to contact her PCP. Will discontinue control pills Discussed with the patient options of treatment including Mirena IUD versus cyclic Provera, all pros and cons risks and benefits of each were discussed with the patient, the patient decided to proceed with Provera, so a more detailed discussion re: Progesterone treatment including mechanism of action, benefits (regular menses, endometrial protection form unopposed estrogen and reduction in the risk of endometrial hyperplasia and/or cancer ...), risks (Thrombosis, mood changes, weight gain, breast soreness, ? increased breast ca, others). Instructions were given to take the medication 1 tablet daily starting day 15-24 and to schedule a 3 months follow-up appointment; patient verbalized understanding and agreed with the plan. Orders: Orders Pap Smear Today Z12.4 - Encounter for screening for malignant neoplasm of cervix Medications: New medroxyprogesterone (Provera) start Provera 1 tablet daily from day 15-24 cyclically every months, day 1 being 1st day of menses 10 mg PO DAILY 30 tabs 0RF 10 days Discontinued desogestrel-ethinyl estradiol 0.15-0.03 mg (Apri) 1 tab po daily x84 days then 6 days off Discontinued Reason: Doctor's Order 1 tab PO DAILY 84 tabs 3RF Coding Level of Care Code Est Pt Prev Care 18-39y(93799) Diagnoses Well woman exam Z01.419 Hypertension I10
[2023-11-08 15:35] VITALS: BP 144/78
== END 2023-11-08 15:35 | disposition home or self-care (01) ==
PROVIDERS: PCP Nurse Practitioner Family; Visit Provider Obstetrics & Gynecology
DX: Z01.419 Encounter for gynecological examination (general) (routine) without abnormal findings (principal); I10 Essential (primary) hypertension
CPT/HCPCS: 99395

== ENCOUNTER 2023-12-13 15:00 | Outpatient (RCR) | payer OTHER, SELFPAY ==
--- NOTE | 2023-12-12 12:33 | MHC.PT.EP ---
[facility] [place] Office [place] Office [place] Office [address] [phone] F: [phone] F: [phone] F: [phone] F: [phone] Physical Therapy Plan of Care Date of Evaluation: 12/11/23 Date of Surgery: Diagnosis: Low back pain, unspecified Assessment: Pt is a pleasant and motivated 33yo F who presents to PT with low back pain with intermittent radicular symptoms into LE's R>L. Pt presents to PT with current impairments in pain, decreased lumbar ROM, decreased core stabilization, decreased hip/glute strength, soft tissue restrictions, and impaired posture. Her LE sensation is equal and intact bilaterally. Her patella reflexes are 2+ bilaterally. She is limited functionally by picking up her 5yo, bending, twisting, prolonged sitting, and sleeping. She is an excellent candidate for skilled PT in order to address current impairments to facilitate return to PLOF. She is recommended to be seen 2x/week for 4 weeks and will be reassessed at that time Frequency and Duration: The patient will be seen 2x/week for 4 weeks Short Term Goals: Pt will be I with HEP to promote self management of symptoms Pt will have centralization of symptoms Quality Control Operator Goals: Pt will achieve full ROM all planes of lumbar spine to assist with functional tasks Pt will demonstrate ability to squat and picket [employer] 10# object from the floor with proper mechanics safely Pt will tolerate prolonged sitting with improved posture > 30 min without radicular symptoms Treatment Plan: Modalities to reduce pain, spasms and effusion. Manual therapy to restore motion and function. Therapeutic exercise to improve strength and flexibility. Neuromuscular re-education for posture and balance. Therapeutic activities to return to functional activities of daily living. Electronically signed by: Antionette Coronel, PT, DPT Please sign and return to therapist. Thank you for your referral.
--- NOTE | 2023-12-27 15:33 | MHC.PT.DC ---
[facility] [place] Office [place] Office [place] Office [address]oya Garcia [address] [phone] F: [phone] F: [phone] F: [phone] F: [phone] Physical Therapy Discharge Report Diagnosis: Low back pain, unspecified Date of Surgery: Date of Evaluation: 12/11/23 Date of Discharge: 12/27/23 Treatments to Date: 2 Cancellations to Date: No Shows to Date: 2 Discharge Status: Visit Non-compliance Discharge Summary: Pt was seen for PT from 12/11/23-12/13/23. She has had multiple no-show appointments since SOC. She is being D/C from skilled PT per [facility] attendance policy and visit non-compliance. Pt current level of function unknown at this time Electronically signed by: Antionette Coronel, PT, DPT Please sign and return to therapist. Thank you for your referral.
== END 2023-12-27 15:33 | disposition home or self-care (01) ==
LOC: HO.PT 15:00
PROVIDERS: PCP Internal Medicine; Visit Provider Internal Medicine
DX: M54.50 Low back pain, unspecified (principal)
CPT/HCPCS: 97110; 97140; 97162

== ENCOUNTER 2024-02-11 15:33 | Outpatient (AMB) | payer OTHER, SELFPAY ==
--- NOTE | 2024-02-11 15:48 | A.OFFVIS_ITS ---
Vital Signs 02/11/24 15:52 Height 5 ft 6 in Weight 196 lb 3.382 oz BMI 31.7 BP 126/78 Intake Visit Reasons: 3 month follow control Denial Management Representative Required: No Information Interpreted: non-clinical & clinical Accompanied by: Self / Same As Patient Allergies No Known Allergies Allergy (Verified 02/11/24 15:53) HPI Comments Details: Presenting for Provera follow-up. The patient did not have her. Therefore did not start Provera yet. No other complaints PFSH Medical History PCOS (polycystic ovarian syndrome) Vitamin D deficiency Anxiety Post-concussion headache Supervision of normal in second trimester Second trimester Bleeding in early History of 2019 novel coronavirus disease (COVID-19) Less than 8 weeks gestation of Threatened Anemia Surgical History History of surgery Hx of myringotomy H/O tubal ligation Family History Mother Hx of diabetes mellitus Hx of primary hypertension History of hyperthyroidism Father Hx of gastrointestinal disease Substance use disorder Maternal Grandmother No problems noted. Maternal Grandfather Hx of diabetes mellitus Paternal Grandmother No problems noted. Paternal Grandfather No problems noted. Sister Hx of anxiety disorder History of depression Sister History of depression Hx of anxiety disorder Sister Hx of anxiety disorder History of depression Sister History of depression Hx of anxiety disorder Other Mental health disorder Social History Housing: Apartment Alcohol intake: never Patient Tobacco Use Status: Never used Tobacco Tobacco use type: Cigarette e-Cigarette/Vaping Use: Never Used Second Hand Smoke Exposure: No Substance Use Type: Marijuana service: No Current occupational status: employed Cognitive needs: No Hearing needs: No Vision needs: No Female Reproductive History Menstrual Age of Menarche: 12 Review of Systems Const All systems reviewed & are unremarkable except as noted in HPI and below Reports as per HPI and Reports no additional complaints GI Reports no additional complaints Reports no additional complaints Physical Exam Vital Signs: Last Vital Signs BP 126/78 02/11/24 15:52 BMI result Body Mass Index 31.7 Assessment & Plan Assessment & Plan (1) Abnormal uterine bleeding (AUB): Comment: PCOS Code(s): N93.9 - Abnormal uterine and vaginal bleeding, unspecified Category: Medical Plan: Instructions were given to start Provera tablet p.o. daily day 15-24 cyclicly , to use a back- up method for contraception since this is not a method control, and to schedule a follow-up appointment in 3 month; patient verbalized understanding and agreed with the plan. Medications: Refilled medroxyprogesterone (Provera) start Provera 1 tablet daily from day 15-24 cyclically every months, day 1 being 1st day of menses 10 mg PO DAILY 10 days 30 tabs 0RF Coding Level of Care Code Est Pt Level 3 (15013) Diagnoses Abnormal uterine bleeding (AUB) N93.9
[2024-02-11 15:52] VITALS: BP 126/78; BMI 31.7
== END 2024-02-11 16:37 ==
PROVIDERS: PCP Nurse Practitioner Family; Visit Provider Obstetrics & Gynecology
DX: N93.9 Abnormal uterine and vaginal bleeding, unspecified (principal)
CPT/HCPCS: 99213

== ENCOUNTER → 2024-02-11 15:33 | Outpatient (BNVA) | payer OTHER, SELFPAY | PROVIDERS: PCP Nurse Practitioner Family; Visit Provider Obstetrics & Gynecology | DX: N93.9 Abnormal uterine and vaginal bleeding, unspecified (principal); E28.2 Polycystic ovarian syndrome | CPT/HCPCS: 99212 ==

== ENCOUNTER 2024-03-04 08:31 | Outpatient (REF) | payer OTHER, SELFPAY ==
[2024-03-04 10:05] LABS: Hematocrit 40.1 % (37.0-47.0); Hemoglobin 14.2 g/dl (12.0-16.0); Mean Corpuscular HGB Conc 35.4 g/dl (31.0-35.0); Mean Corpuscular Hemoglobin 30.5 pg (27.0-33.0); Mean Corpuscular Volume 86.2 fL (80.0-98.0); Mean Platelet Volume 9.6 fL (9.4-12.3); Platelet Count 230 X10*3/uL (160-400); Red Blood Count 4.65 X10*6/uL (4.20-5.50); White Blood Count 9.9 X10*3/uL (4.8-10.8)
[2024-03-04 16:10] LABS: CT PCR NOT DETECTED (Not Detect.); NG PCR NOT DETECTED (Not Detect.)
== END 2024-03-04 08:32 | disposition home or self-care (01) ==
LOC: HO.LAB 08:31
PROVIDERS: PCP Nurse Practitioner Family; Visit Provider Obstetrics & Gynecology
DX: Z30.430 Encounter for insertion of intrauterine contraceptive device (principal); N93.9 Abnormal uterine and vaginal bleeding, unspecified
CPT/HCPCS: 36415; 58300; 85027; 87491; 87591; 99212; J7298

== ENCOUNTER 2024-03-04 08:31 | Outpatient (AMB) | payer OTHER, SELFPAY ==
--- NOTE | 2024-03-04 08:34 | MHC.OFFVIS ---
Vital Signs 03/04/24 08:36 Height 5 ft 6 in Weight 196 lb 3.382 oz BMI 31.7 BP 124/78 Intake Visit Reasons: menses follow up [employer] Instructor Required: No Information Interpreted: non-clinical & clinical Accompanied by: Self / Same As Patient Allergies No Known Allergies Allergy (Verified 03/04/24 08:43) HPI Comments Details: Presenting complaining of heavy vaginal bleeding after starting Provera associated with breast tenderness and significant irritability and mood changes. The patient was started on control pills and developed control pill induced hypertension and were discontinued [facility] Medical History PCOS (polycystic ovarian syndrome) Vitamin D deficiency Anxiety Post-concussion headache Supervision of normal in second trimester Second trimester Bleeding in early History of 2019 novel coronavirus disease (COVID-19) Less than 8 weeks gestation of Threatened Anemia Surgical History History of surgery Hx of myringotomy H/O tubal ligation Family History Mother Hx of diabetes mellitus Hx of primary hypertension History of hyperthyroidism Father Hx of gastrointestinal disease Substance use disorder Maternal Grandmother No problems noted. Maternal Grandfather Hx of diabetes mellitus Paternal Grandmother No problems noted. Paternal Grandfather No problems noted. Sister Hx of anxiety disorder History of depression Sister History of depression Hx of anxiety disorder Sister Hx of anxiety disorder History of depression Sister History of depression Hx of anxiety disorder Other Mental health disorder Social History Housing: Apartment Alcohol intake: never Patient Tobacco Use Status: Never used Tobacco Tobacco use type: Cigarette e-Cigarette/Vaping Use: Never Used Second Hand Smoke Exposure: No Substance Use Type: Marijuana service: No Current occupational status: employed Cognitive needs: No Hearing needs: No Vision needs: No Female Reproductive History Menstrual Age of Menarche: 12 Review of Systems Const All systems reviewed & are unremarkable except as noted in HPI and below Physical Exam Vital Signs: Last Vital Signs BP 124/78 03/04/24 08:36 BMI result Body Mass Index 31.7 General: Yes no CVA tenderness External Female Exam: normal external appearance and normal appearance of the urethra Speculum Exam - Vagina: normal appearance of the vagina, normal palpation, no lesions, no masses and other (No active bleeding) Speculum Exam - Cervix: normal appearance of the cervix, normal palpation, no lesions, no masses and nontender Bimanual exam- vagina & uterus: normal bimanual exam, normal palpation, uterine size normal, normal palpation, uterine shape normal, No Cervical tenderness present and non-tender Bimanual Exam- Adnexa, other: normal adnexae Back/Spine/Pelvis Back: no CVA tenderness Office Procedures IUD Insert/Removal Details Details: The patient is presenting for Mirena IUD insertion Urine test was done in the office and was negative; All the contraindications were excluded. The following possible complications were discussed with the patient: Intrauterine , Ectopic , Sepsis, Pelvic Infection, Irregular Bleeding and Amenorrhea, Perforation, Expulsion, Ovarian Cysts, Breast Cancer, The following adverse effects were discussed with the patient: alteration of menstrual bleeding pattern, including: unscheduled uterine bleeding decreased uterine bleeding increased scheduled uterine bleeding female genital tract bleeding ,amenorrhea , genital discharge , vulvovaginitis , breast pain , benign ovarian cyst and associated complications , dysmenorrhea , Gastrointestinal disorders abdominal/pelvic pain, headache/migraine , back pain , acne , depression Alternative options were discussed with the patient including but not limited: control pills, patch, NuvaRing, Depo-medroxyprogesterone acetate, Nexplanon, copper IUD, sterilization, vasectomy, others The procedure was explained in detail to patient , at the end patient signed the informed consent obtained. A no touch technique was used throughout the procedure. A speculum was placed into vagina and cervix was cleaned with betadine). A tenaculum was placed. A plastic sound was advanced through the external and internal os until it reached the fundus of the uterus, the depth was 8 cm. The sound was then withdrawn. The IUD was loaded in a sterile manner and advanced into position. The string was visualized and cut to 3 cm. Tenaculum site hemostatic. All instruments removed from vagina. Patient tolerated the procedure well. NO complications were noted. Patient was instructed to call for fever over 100.4, significant pain unrelieved by Motrin, IUD expulsion, heavy bleeding, or abnormal discharge. In addition, the following clinical considerations were discussed with the patient to call for removal: A stroke or heart attack ,Very severe or migraine headaches ,Unexplained fever ,Yellowing of the skin or whites of the eyes, as these may be signs of serious liver problems , or suspected , Pelvic pain or pain during sex ,HIV positive seroconversion in herself or her partner , Possible exposure to sexually transmitted infections Unusual vaginal discharge or genital sores , severe vaginal bleeding or bleeding that lasts a long time, or if she misses a menstrual period, Inability to feel Mirena's threads Counseled the patient that the IUD does not protect against STI's, recommended use of condoms for the first 7 days post insertion and explained to the patient that condoms are recommended for patients at risk for sexually transmitted infections. Informed the patient that Mirena IUD is FDA approved for 8 years for contraception for 5 years for the treatment of heavy menses Instructed the patient to schedule a Follow up appointment in 4 to 6 weeks following insertion. This note was generated with a voice recognition program. Some errors may have been overlooked during the review of this note. Sometimes these errors may affect the content or meaning of a given sentence. [id number] Insertion Procedure code (CPT) selection complete Office Meds Mirena 21 mcg/24 hr (up to 8 years) 52 mg intrauterine device Performing Provider: Hernandez Thomas MD Performing Location: [facility] Documented (not given) by: Hernandez Thomas MD on 03/04/24 09:24 Dose Route Admin Location Dispensed Lot Number Expiration Date [facility] [id number] Consultant 1 device intrauterine ea Assessment & Plan Assessment & Plan (1) Abnormal uterine bleeding (AUB): Comment: PCOS Code(s): N93.9 - Abnormal uterine and vaginal bleeding, unspecified Category: Medical Plan: Discussed with the patient the results of the work up done and options of treatment including Mirena IUD, or continue on cyclic Provera but giving the significant mood side effects, recommended discontinue cycle Provera. All pros, cons, risks and benefits if each option was discussed with the patient and the patient decided to go ahead with Mirena IUD so a more detailed discussion about it was conducted including mechanism of action, risks (uterine perforation, infection, injury to bladder, bowel, displacement, and others) benefits (hypo menorrhea, amenorrhea, ...). GC/CT were taken and the patient was instructed to schedule Mirena IUD insertion was done. See procedure note. Instructions given the patient to call in case of pelvic pain, fever, heavy vaginal bleeding or persistent of her mood changes, otherwise schedule a IUD check follow-up appoint in 4 weeks All questions answered, the patient verbalized understanding Orders: Orders Complete Blood Count no Diff Today N93.9 - Abnormal uterine and vaginal bleeding, unspecified AMB IUD Insertion/Removal - Practice Supplied Today N93.9 - Abnormal uterine and vaginal bleeding, unspecified Medications: New Mirena (levonorgestrel) 1 device intrauterine ONCE 1 ea 0RF aub NS N93.9 - Abnormal uterine and vaginal bleeding, unspecified Discontinued medroxyprogesterone (Provera) start Provera 1 tablet daily from day 15-24 cyclically every months, day 1 being 1st day of menses Discontinued Reason: Doctor's Order 10 mg PO DAILY 10 days 30 tabs 0RF Coding Level of Care Code Est Pt Level 3 (83251) Procedure Only Diagnoses Abnormal uterine bleeding (AUB) N93.9 CPT Codes Details - CPT: 48366-SAZ Insertion ([id number])
[2024-03-04 08:36] VITALS: BP 124/78; BMI 31.7
== END 2024-03-04 09:27 | disposition home or self-care (01) ==
LOC: HO.HWS 08:31
PROVIDERS: PCP Nurse Practitioner Family; Visit Provider Obstetrics & Gynecology
DX: N93.9 Abnormal uterine and vaginal bleeding, unspecified (principal); Z30.430 Encounter for insertion of intrauterine contraceptive device
CPT/HCPCS: 58300; 99213

== ENCOUNTER 2024-03-04 09:51 | Outpatient (REF) | payer OTHER, SELFPAY | END 2024-03-04 09:52 | disposition home or self-care (01) | LOC: HO.LNP 09:51 | PROVIDERS: Visit Provider Obstetrics & Gynecology | DX: Z13.89 Encounter for screening for other disorder (principal) ==

== ENCOUNTER 2024-05-19 15:29 | Outpatient (AMB) | payer OTHER, SELFPAY ==
--- NOTE | 2024-05-19 15:40 | A.OFFVIS_ITS ---
Vital Signs 05/19/24 15:41 Height 5 ft 6 in Weight 196 lb 3.382 oz BMI 31.7 BP 120/74 Intake Visit Reasons: 3 month follow up Allergies No Known Allergies Allergy (Verified 03/04/24 08:43) HPI Comments Details: The patient is presenting for IUD check after 1 st period following IUD inse rtion. The patient has no complaints periods are normal, not painful, and flow is normal. [facility] Medical History PCOS (polycystic ovarian syndrome) Vitamin D deficiency Anxiety Post-concussion headache Supervision of normal in second trimester Second trimester Bleeding in early History of 2019 novel coronavirus disease (COVID-19) Less than 8 weeks gestation of Threatened Anemia Surgical History History of surgery Hx of myringotomy H/O tubal ligation Family History Mother Hx of diabetes mellitus Hx of primary hypertension History of hyperthyroidism Father Hx of gastrointestinal disease Substance use disorder Maternal Grandmother No problems noted. Maternal Grandfather Hx of diabetes mellitus Paternal Grandmother No problems noted. Paternal Grandfather No problems noted. Sister Hx of anxiety disorder History of depression Sister History of depression Hx of anxiety disorder Sister Hx of anxiety disorder History of depression Sister History of depression Hx of anxiety disorder Other Mental health disorder Social History Housing: Apartment Alcohol intake: never Patient Tobacco Use Status: Never used Tobacco Tobacco use type: Cigarette e-Cigarette/Vaping Use: Never Used Second Hand Smoke Exposure: No Substance Use Type: Marijuana service: No Current occupational status: employed Cognitive needs: No Hearing needs: No Vision needs: No Female Reproductive History Menstrual Age of Menarche: 12 Review of Systems Const All systems reviewed & are unremarkable except as noted in HPI and below Physical Exam Vital Signs: Last Vital Signs BP 120/74 05/19/24 15:41 BMI result Body Mass Index 31.7 General: Yes no CVA tenderness External Female Exam: normal external appearance and normal appearance of the urethra Speculum Exam - Vagina: normal appearance of the vagina, normal palpation, no lesions and no masses Speculum Exam - Cervix: normal appearance of the cervix, normal palpation, no lesions, no masses, nontender and Other cervical findings present (IUD string in place) Bimanual exam- vagina & uterus: normal bimanual exam, normal palpation, uterine size normal, normal palpation, uterine shape normal, No Cervical tenderness present and non-tender Bimanual Exam- Adnexa, other: normal adnexae Back/Spine/Pelvis Back: no CVA tenderness Assessment & Plan Assessment & Plan (1) IUD check up: Code(s): Z30.431 - Encounter for routine checking of intrauterine contraceptive device Category: Medical Plan: UPT done in the office was negative. Discussed with the patient the finding on physical exam, IUD string in place, the patient was reassured. Instructions given to patient to call in case of temperature above 100.4, severe cramping/pelvic pain, abnormal discharge or abnormal uterine bleeding or if she misses her menstrual cycle. Otherwise follow-up at her annual exam appointment. All questions answered, the patient verbalized understanding. Coding Level of Care Code Est Pt Level 3 (88487) Diagnoses IUD check up Z30.431
[2024-05-19 15:41] VITALS: BP 120/74; BMI 31.7
== END 2024-05-19 16:00 | disposition home or self-care (01) ==
PROVIDERS: PCP Nurse Practitioner Family; Visit Provider Obstetrics & Gynecology
DX: Z30.431 Encounter for routine checking of intrauterine contraceptive device (principal)
CPT/HCPCS: 99213

== ENCOUNTER → 2024-05-19 15:29 | Outpatient (BNVA) | payer OTHER, SELFPAY | PROVIDERS: PCP Nurse Practitioner Family; Visit Provider Obstetrics & Gynecology | DX: Z30.431 Encounter for routine checking of intrauterine contraceptive device (principal) | CPT/HCPCS: 99212 ==

== ENCOUNTER 2024-06-18 07:00 | Emergency (ER) | payer OTHER, SELFPAY ==
[2024-06-18 07:03] VITALS: BP 126/85; PULSE 73; RESP 16; TEMP 36.6; O2SAT 98; BMI 30.7
--- NOTE | 2024-06-18 07:13 | ED.GENADULT ---
HPI - General Adult General Chief complaint: Nausea/Vomiting/Diarrhea Stated complaint: n/v/d Time Seen by Provider: 06/18/24 07:13 Source: patient Mode of arrival: ambulatory Limitations: no limitations History of Present Illness ED Provider: Sahra Culp PA-C HPI narrative: Patient is a 34 year old assigned female at with a history of anxiety presenting to the emergency department today with nausea, vomiting, diarrhea, body aches, and a headache Patient states that starting yesterday she has had nausea, vomiting, diarrhea, body aches, and a headache. Patient denies any dizziness, lightheadedness, abdominal pain, fever, chills, blurry vision, double vision, loss of vision, chest pain, difficulty breathing, shortness of breath, back pain, night sweats, pain with urination, increased urinary frequency, increased urinary urgency, blood in her urine or stool, syncope or a near syncopal episode, recent trauma or falls, bowel incontinence, bladder incontinence, or any other complaints at this time. Onset (ago): day(s) (1) Relieving factors: none Exacerbating factors: none Associated symptoms: nausea/vomiting Treatments prior to arrival: none Related Data Home Medications ?Medication ?Instructions ?Recorded ?Confirmed ondansetron HCl 4 mg tablet 4 mg PO Q6H 06/18/23 07/20/23 Previous Rx's ?Medication ?Instructions ?Recorded acetaminophen 500 mg tablet 1,000 mg (2 x 500 mg) PO QID PRN 08/09/22 (Tylenol Extra Strength) fever or pain #14 tabs cefuroxime axetil 250 mg tablet 250 mg PO BID 7 days #14 tabs 06/18/24 ondansetron 4 mg disintegrating 4 mg PO Q8H 3 days #9 tabs 06/18/24 tablet Allergies Allergy/AdvReac Type Severity Reaction Status Date / Time No Known Allergies Allergy Verified 06/18/24 07:04 Review of Systems Constitutional: Constitutional: Reports no additional constitutional complaints, Reports body ache(s), Denies chills, Denies fever(s), Reports headache(s) and Denies night sweats Eyes: Eyes: Reports no additional eye complaints, Denies blurry vision, Denies change in vision, Denies diplopia, Denies eye discharge, Denies loss of vision and Denies eye pain ENT: Denies dizziness and Reports headache(s) Cardiovascular: Cardiovascular: Reports no additional cardiovascular complaints, Denies chest pain, Denies lightheadedness, Denies Loss of Consciousness and Denies dyspnea Respiratory: Respiratory: Reports no additional respiratory complaints and Denies dyspnea Gastrointestinal: Gastrointestinal: Reports no additional gastrointestinal complaints, Denies abdominal pain, Denies melena, Denies hematochezia, Denies change in bowel habits, Denies change in stool character, Reports diarrhea, Reports nausea and Reports vomiting Genitourinary: Genitourinary: Denies hematuria, Denies urinary frequency, Denies dysuria, Denies urinary incontinence, Denies urinary hesitancy and Denies urinary urgency Musculoskeletal: Musculoskeletal: Reports no additional musculoskeletal complaints, Denies numbness and Denies tingling Neurologic: Denies dizziness, Reports headache(s), Denies loss of vision, Denies numbness and Denies tingling Psychiatric: Psychiatric: Reports no additional psychiatric complaints Endocrine: Endocrine: Reports no additional endocrine complaints Hematologic/Lymphatic: Hematologic/Lymphatic: Reports no additional hematologic/lymphatic complaints Allergic/Immunologic: Allergic/Immunologic: Reports no additional allergic/immunologic complaints [facility] Past Medical History Attestation statement: The following information was validated with the patient. Source: old records reviewed and nursing notes reviewed Medical History PCOS (polycystic ovarian syndrome) Vitamin D deficiency Anxiety Post-concussion headache Supervision of normal in second trimester Second trimester Bleeding in early History of 2019 novel coronavirus disease (COVID-19) Less than 8 weeks gestation of Threatened Anemia Surgical History History of surgery Hx of myringotomy H/O tubal ligation Family History Family History Mother Hx of diabetes mellitus Hx of primary hypertension History of hyperthyroidism Father Hx of gastrointestinal disease Substance use disorder Maternal Grandmother No problems noted. Maternal Grandfather Hx of diabetes mellitus Paternal Grandmother No problems noted. Paternal Grandfather No problems noted. Sister Hx of anxiety disorder History of depression Sister History of depression Hx of anxiety disorder Sister Hx of anxiety disorder History of depression Sister History of depression Hx of anxiety disorder Other Mental health disorder Social History Social History Housing: Apartment Alcohol intake: never Patient Tobacco Use Status: Never used Tobacco Tobacco use type: Cigarette Smoked in Last 30 Days: No e-Cigarette/Vaping Use: Never Used Second Hand Smoke Exposure: No Use of substances other than those prescribed or required for medical reasons: No Substance Use Type: Marijuana Advance Directives: No Do you have a plan to hurt others: No Plan Patient : No service: No Current occupational status: employed Cognitive needs: No Hearing needs: No Vision needs: No Physical Exam ED Vital Signs: Vital Signs - 24 hr 06/18/24 07:03 06/18/24 09:18 06/18/24 09:19 Temperature 97.8 F 98.2 F 98.2 F Pulse Rate 73 68 68 Respiratory Rate 16 16 16 Blood Pressure 126/85 132/79 132/79 Pulse Oximetry 98 98 98 Oxygen Delivery Method Room Air Room Air Room Air BMI result Body Mass Index 30.7 Const General: cooperative, no acute distress, alert and awake Nutritional Appearance: well nourished Orientation/consciousness: patient oriented x3 Limitations: no limitations HENMT Head: Yes normal to inspection and Yes atraumatic Ears: hearing grossly normal bilaterally and external ears normal General nose exam: Normal external nose present, no nasal discharge noted and no epistaxis Face and sinus: Yes normal facial exam, No abrasion and No laceration Mouth: Normal oral and palatal mucosa present, no drooling and no muffled voice Eyes General: appearance normal, both eyes and all related structures Periorbital: periorbital findings normal Eyelids: Yes eyelids normal Conjunctivae: conjunctivae normal Pupils: Equal, round and reactive pupils present EOM: EOMs intact bilaterally Neck Neck: Yes normal visual inspection, Yes full ROM and Yes no lymphadenopathy Chest Chest palpation & inspection: normal inspection of the chest Resp Effort & Inspection: normal respiratory effort and able to speak in complete sentences GI Inspection: Yes normal to inspection Neuro General: patient oriented x3 and moves all extremities Cranial nerves: Yes Equal, round and reactive pupils present Cognition (Neuro): normal cognition Extrem General: Yes normal to inspection, Yes full ROM and Yes capillary refill normal Psych Appearance: grossly normal Mental Status: mental status grossly normal Affect: normal affect Attitude: cooperative Thought process: Normal thought process present Thought content: Normal thought content present Insight: Good insight present (Psych) Medications Administered Discontinued Medications Generic Name Dose Route Start Last Admin Trade Name Cuca PRN Reason Stop Dose Admin Ondansetron HCl 4 mg 06/18/24 07:13 06/18/24 07:41 Ondansetron Hcl 4 Mg/2 Ml Vial IVPUSH 06/18/24 07:14 4 mg ONCE ONE Administration Medical Decision Making Medical Decision Making [facility] Narrative: Patient is a 34 year old assigned female at with a history of anxiety presenting to the emergency department today with nausea, vomiting, body aches, and a headache. Patient's physical exam was unremarkable. Patient's blood work was unremarkable. Patient's urine showed a possible UTI, given her symptoms - will treat. I explained my physical exam findings as well as all test results to the patient. I answered all questions asked by the patient. I stressed the importance of the patient taking her medication as directed (either prescribed or as the over the counter packaging recommends). I stressed the importance of the patient following up with her primary care provider. I stressed the importance of the patient returning to the emergency department immediately if her symptoms were to worsen or if she were to develop any dizziness, shortness of breath, difficulty breathing, chest pain, blurry vision, loss of vision, nausea, vomiting, abdominal pain, fever, chills, back pain, or any other complaints. Patient verbalized agreement and understanding with this treatment plan and discharge. Differential Diagnosis Differential Diagnoses: The differential diagnosis associated with the presentation includes UTI Viral illness COVID-19 Influenza RSV Admission/Observation Consideration of admission/observation: Escalation of care including admission/observation considered Patient would have been admitted to the hospital had her work up had any findings where hospital admission was appropriate and her clinical presentation warranted hospital admission. Lab Data [facility] Lab Attestation statement: I reviewed the patient's lab results. My interpretation of these results are in the [facility] Rationale portion of this note. 06/18/24 07:40 06/18/24 07:40 Labs: Lab Results 06/18/24 06/18/24 06/18/24 Range/Units 07:09 07:40 08:30 WBC 9.9 (4.8-10.8) X10*3/uL RBC 4.77 (4.20-5.50) X10*6/uL Hgb 14.5 (12.0-16.0) g/dl Hct 42.0 (37.0-47.0) % MCV 88.1 (80.0-98.0) fL MCH 30.4 (27.0-33.0) pg MCHC 34.5 (31.0-35.0) g/dl RDW 11.9 (11.0-16.0) % Plt Count 253 (160-400) X10*3/uL MPV 9.7 (9.4-12.3) fL Immature Gran % (Auto) 0.2 (0.0-0.4) % Neut % (Auto) 68.8 (45-73) % Lymph % (Auto) 23.1 (20-40) % [place] % (Auto) 5.9 (2-11) % Eos % (Auto) 1.1 (0-4) % Baso % (Auto) 0.9 (0-2) % Lymph # (Auto) 2.3 (1.2-4.9) X10*3/uL [place] # (Auto) 0.6 (0.1-1.2) X10*3/uL Eos # (Auto) 0.1 (0.0-0.4) X10*3/uL Baso # (Auto) 0.1 (0.0-0.2) X10*3/uL Abs Immat Gran (auto) 0.02 (0.00-0.03) X10*3/uL Absolute Neuts (auto) 6.8 (2.0-8.3) x10*3/uL Absolute Nucleated RBC 0.000 (0.0-0.012) X10*3/uL Nucleated RBC % (auto) 0.0 (0.0-0.2) /100WBC Sodium 140 (135-145) mmol/L Potassium 4.2 (3.3-5.1) mmol/L Chloride 107 (96-108) mmol/L Carbon Dioxide 23 (22-29) mmol/L Anion Gap 14 (12-20) BUN 14 (9-16) mg/dL Creatinine 0.71 (0.5-1.4) mg/dL Estim Creat Clear Calc 125.7 Estimated GFR > 60 Random Glucose 124 H (60-115) mg/dL Calcium 8.8 D (8.4-10.2) mg/dL Magnesium 2.1 (1.6-2.6) mg/dL Total Bilirubin 0.8 (0.0-1.0) mg/dL AST 21 (5-31) U/L ALT 28 (0-31) U/L Alkaline Phosphatase 63 (39-117) U/L Total Protein 6.7 (6.5-8.0) g/dL Albumin 4.0 (3.5-5.0) g/dL Beta HCG, Quant < 2 mIU/mL Urine Color Yellow Urine Appearance Clear Urine pH 6.0 (5.0-9.0) Ur Specific [place] 1.020 (1.005-1.025) Urine Protein Negative (Neg-Trace) mg/dL Urine Glucose (UA) Negative (Negative) mg/dL Urine Ketones Negative (Negative) mg/dL Urine Blood Small (1+) H (Negative) Urine Nitrite Negative (Negative) Ur Leukocyte Esterase Moderate (2+) H (Negative) Urine RBC 0-2 (0-2) /HPF Urine WBC 6-10 (0-5) /HPF Ur Squamous Epith Cells 6-10 (0-2) /HPF Urine Bacteria 2+ (None Seen) Hyaline Casts 0-2 (0-2) /LPF Influenza Type A (PCR) NEGATIVE (Negative) Influenza Type B (PCR) NEGATIVE (Negative) RSV RNA Qual (PCR) NEGATIVE (Negative) SARS-CoV-2 RNA (RT-PCR) NEGATIVE (Negative) Tests considered The following testing was considered but not selected: I considered obtaining a CT of the abdomen/pelvis however, the patient's current clinical presentation and work up does not warrant this. I discussed this with the patient who verbalized understanding and agreement. Prescription Management I considered prescription management with: Antibiotic (patient prescribed an antibiotic for possible UTI) Discharge Plan Discharge Clinical Impression: UTI (urinary tract infection), Nausea & vomiting Patient Disposition: Home, Self-Care Instructions: Urinary Tract Infection in Women (DC), Acute Nausea and Vomiting (ED) Additional Instructions: Your lab work was reassuring. Your urine showed a possible urinary tract infection, given your symptoms - we will treat. Follow up with your primary care provider. Return to the emergency department immediately if your symptoms worsen or if you develop any dizziness, shortness of breath, difficulty breathing, chest pain, blurry vision, loss of vision, nausea, vomiting, abdominal pain, fever, chills, back pain, or any other complaints. Prescriptions: New cefuroxime axetil 250 mg tablet 250 mg PO BID 7 Days Qty: 14 0RF ondansetron 4 mg tablet,disintegrating 4 mg PO Q8H 3 Days Qty: 9 0RF No Action acetaminophen [Tylenol Extra Strength] 500 mg tablet 1,000 mg PO QID PRN (Reason: fever or pain) Qty: 14 0RF ondansetron HCl 4 mg tablet 4 mg PO Q6H Referrals: [facility] [place] [facility] [Provider Group] (Call to establish and follow up with a primary care provider. If you already have a primary care provider, please follow up with them.) [facility] [place] [facility] (Call to establish and follow up with a primary care provider. If you already have a primary care provider, please follow up with them.) [facility] [place] [facility] [Provider Group] (Call to establish and follow up with a primary care provider. If you already have a primary care provider, please follow up with them.) Stand Alone Forms: Work/School Release Interventions: ED Discharge Assessment Last Done: 06/18/24 09:19 Discharge Date/Time: 06/18/24 09:20 Print Language: Armenian
[2024-06-18] MEDS: ondansetron HCL 4 MG/2 ML VIAL IVPUSH (07:41)
[2024-06-18 07:45] LABS: MANUAL DIFF FLAG NO
[2024-06-18 07:51] LABS: Basophils Absolute Auto 0.1 X10*3/uL (0.0-0.2); Basophils Percent Auto 0.9 % (0-2); Eosinophils Absolute Auto 0.1 X10*3/uL (0.0-0.4); Eosinophils Percent Auto 1.1 % (0-4); Hemoglobin 14.5 g/dl (12.0-16.0); Imm Gran Abs Auto 0.02 X10*3/uL (0.00-0.03); Imm Gran Pct Auto 0.2 % (0.0-0.4); Lymphocytes Absolute Auto 2.3 X10*3/uL (1.2-4.9); Lymphocytes Percent Auto 23.1 % (20-40); Mean Corpuscular HGB Conc 34.5 g/dl (31.0-35.0); Mean Corpuscular Hemoglobin 30.4 pg (27.0-33.0); Mean Corpuscular Volume 88.1 fL (80.0-98.0); Mean Platelet Volume 9.7 fL (9.4-12.3); Monocytes Absolute Auto 0.6 X10*3/uL (0.1-1.2); Monocytes Percent Auto 5.9 % (2-11); Neutrophils Absolute Auto 6.8 x10*3/uL (2.0-8.3); Neutrophils Percent Auto 68.8 % (45-73); Platelet Count 253 X10*3/uL (160-400); Red Blood Count 4.77 X10*6/uL (4.20-5.50); Red Cell Distribution Width 11.9 % (11.0-16.0); White Blood Count 9.9 X10*3/uL (4.8-10.8)
[2024-06-18 08:00] LABS: Influenza A PCR NEGATIVE (Negative); Influenza B PCR NEGATIVE (Negative); Resp Syncy Virus RNA Qual PCR NEGATIVE (Negative); SARS COV2 PCR INHOUSE NEGATIVE (Negative)
[2024-06-18 08:07] LABS: Alanine Aminotransferase 28 U/L (0-31); Alkaline Phosphatase 63 U/L (39-117); Anion Gap 14 (12-20); Aspartate Amino Transferase 21 U/L (5-31); Bilirubin Total 0.8 mg/dL (0.0-1.0); Blood Urea Nitrogen 14 mg/dL (9-16); Calcium 8.8 mg/dL (8.4-10.2); Carbon Dioxide 23 mmol/L (22-29); Chloride 107 mmol/L (96-108); Creatinine Clr Calc Pharmacy 125.7; Estimated Glomerular Filt Rate > 60; Glucose Random 124 mg/dL (60-115); HCG Quantitative < 2 mIU/mL; Magnesium 2.1 mg/dL (1.6-2.6); Potassium 4.2 mmol/L (3.3-5.1); Sodium 140 mmol/L (135-145); Total Protein 6.7 g/dL (6.5-8.0)
[2024-06-18 08:37] LABS: Appearance Urine Clear; Color Urine Yellow; Glucose Urine UA Negative (Negative); Leukocyte Esterase Urine Moderate (2+) (Negative); Nitrite Urine Negative (Negative); UMIC TRIGGER UACC YES; Urine Blood Small (1+) (Negative); Urine Ketones Negative (Negative); Urine Protein Negative (Neg-Trace)
[2024-06-18 08:50] LABS: Bacteria Urine 2+ (None Seen); Hyaline Casts Urine 0-2 /LPF (0-2); RBC Urine 0-2 /HPF (0-2); UACC Culture Trigger YES
[2024-06-18 09:18] VITALS: BP 132/79; PULSE 68; RESP 16; TEMP 36.8; O2SAT 98
[2024-06-18 09:19] VITALS: BP 132/79; PULSE 68; RESP 16; TEMP 36.8; O2SAT 98
== END 2024-06-18 09:20 | disposition home or self-care (01) ==
PROVIDERS: Physician Assistant Medical; Emergency Provider Emergency Medicine Emergency Medical Services
DX: N39.0 Urinary tract infection, site not specified (principal); R11.2 Nausea with vomiting, unspecified; R19.7 Diarrhea, unspecified; R51.9 Headache, unspecified; F41.9 Anxiety disorder, unspecified; F17.210 Nicotine dependence, cigarettes, uncomplicated; F12.90 Cannabis use, unspecified, uncomplicated; Z03.818 Encounter for observation for suspected exposure to other biological agents ruled out; Z79.899 Other long term (current) drug therapy
CPT/HCPCS: 0241U; 36415; 80053; 81001; 83735; 84702; 85025; 87086; 96374; 99284; J2405

== ENCOUNTER 2024-07-19 10:40 | Emergency (ER) | payer OTHER, SELFPAY ==
--- NOTE | ~2024-07-19 | CT_ITS ---
EXAMINATION: CT ABDOMEN AND PELVIS WITHOUT CONTRAST CLINICAL INFORMATION: Right flank pain. Question stone. COMPARISON: Pelvic ultrasound dated 06/18/2023. CT abdomen/pelvis dated 12/14/2014. TECHNIQUE: Multidetector volumetric imaging was performed from the superior aspect of the liver through the pubic symphysis. Sagittal and coronal reformatted images were obtained on the technologist's workstation. This CT examination was performed using dose optimization techniques as appropriate, variously including the following: *Automated exposure control. *Adjustment of mA and/or kV according to patient size (this includes techniques or standardized protocols for targeted exams where dose is matched to indication/reason for exam; i.e. extremities or head). *Use of iterative reconstruction technique. DLP: 649 mGy-cm FINDINGS: LUNG BASES: The visualized lung bases are unremarkable. LIVER, GALLBLADDER, AND BILIARY TREE: The liver is normal in enlarged with mild hypoattenuation, consistent with steatosis. Normal contour. Fatty sparing adjacent to the gallbladder fossa. No focal hepatic lesion or biliary ductal dilatation is present. The gallbladder is unremarkable with no evidence of radiopaque gallstones, gallbladder wall thickening, or obvious pericholecystic inflammatory changes. PANCREAS: Unremarkable. SPLEEN: Unremarkable. ADRENAL GLANDS: Unremarkable. KIDNEYS AND URETERS: The kidneys are normal in size, shape, and attenuation. Right renal pelvic stone measuring approximately 1.3 x 0.7 x 0.9 cm and 1280 Hounsfield units. This is located 12.8 cm from the posterior axillary line. Mild right-sided hydroureteronephrosis with mild periureteral and perinephric stranding. No additional renal or ureteral stone. No left-sided hydronephrosis or hydroureter. Findings could indicate a recently passed right-sided renal stone versus intermittent obstruction by the renal pelvic stone. BLADDER: Unremarkable. No cystic calcification. GASTROINTESTINAL TRACT: No small or large bowel obstruction. No bowel wall thickening or inflammatory change. Unremarkable appendix. PERITONEAL CAVITY: No intra-abdominal free air or free fluid. No intra-abdominal mass or organized fluid collection/abscess formation. ABDOMINAL WALL: No significant hernia is appreciated. LYMPH NODES: No lymphadenopathy. VASCULAR: Unremarkable. PELVIC VISCERA: IUD within the uterus. OSSEOUS STRUCTURES: Unremarkable. CT/CT abdomen pelvis wo IV con IMPRESSION: 1. Right renal pelvic stone measuring up to 1.3 cm. Mild right-sided hydroureteronephrosis with mild periureteral and perinephric stranding. Findings could indicate a recently passed right-sided renal stone versus intermittent obstruction by the renal pelvic stone. No additional renal or ureteral stone. No left-sided hydronephrosis or hydroureter. Unremarkable urinary bladder. 2. Hepatic steatosis. No hepatic parenchymal lesion or biliary ductal dilatation. 3. No intra-abdominal mass, lymphadenopathy, or ascites. Fleischner guidelines were followed. Electronically signed by: Gabriel Juarez MD 07/19/2024 01:20 PM JUAN J REYES
[2024-07-19 10:51] VITALS: BP 141/82; PULSE 73; RESP 18; TEMP 36.6; O2SAT 98; BMI 30.6
--- NOTE | 2024-07-19 11:01 | ED.GENADULT ---
HPI - General Adult General Chief complaint: Abdominal Pain Stated complaint: sharp abd pain Time Seen by Provider: 07/19/24 11:00 Source: patient Mode of arrival: ambulatory Limitations: no limitations History of Present Illness ED Provider: Delicia LOPEZ narrative: Patient is a 34-year-old female with history of HTN, AUB, PCOS, anxiety presenting to the ED with complaint of lower abdominal pain for several days now radiating around to back, as well as nausea and vomiting today. History of kidney stones, states pain feels similar. Also reports she was recently treated for a UTI but feels her symptoms never full resolved. Reports dysuria and hematuria. Denies fevers. MD complaint: abdominal pain Onset (ago): day(s) Location: abdomen Radiation: back Severity: severe Quality: stabbing Pain Consistency: constant Associated symptoms: nausea/vomiting Treatments prior to arrival: none Related Data Home Medications ?Medication ?Instructions ?Recorded ?Confirmed ondansetron HCl 4 mg tablet 4 mg PO Q6H 06/18/23 07/20/23 Previous Rx's ?Medication ?Instructions ?Recorded acetaminophen 500 mg tablet 1,000 mg (2 x 500 mg) PO QID PRN 08/09/22 (Tylenol Extra Strength) fever or pain #14 tabs cefuroxime axetil 250 mg tablet 250 mg PO BID 7 days #14 tabs 06/18/24 ondansetron 4 mg disintegrating 4 mg PO Q8H 3 days #9 tabs 06/18/24 tablet cefuroxime axetil 500 mg tablet 500 mg PO BID #14 tabs 07/19/24 morphine 15 mg immediate release 15 mg PO Q6H PRN severe pain 07/19/24 tablet (scale score 7-10) #8 tabs ondansetron 4 mg disintegrating 4 mg PO Q8H PRN nausea and 07/19/24 tablet vomiting #10 tabs prednisone 20 mg tablet 20 mg PO DAILY #5 tabs 07/19/24 Allergies Allergy/AdvReac Type Severity Reaction Status Date / Time No Known Allergies Allergy Verified 07/19/24 10:53 Review of Systems Review of Systems: As per HPI. Yes all other systems are reviewed and are negative Constitutional: Constitutional: Reports as per HPI PMFSH Past Medical History Medical History PCOS (polycystic ovarian syndrome) Vitamin D deficiency Anxiety Post-concussion headache Supervision of normal in second trimester Second trimester Bleeding in early History of 2019 novel coronavirus disease (COVID-19) Less than 8 weeks gestation of Threatened Anemia Surgical History History of surgery Hx of myringotomy H/O tubal ligation Family History Family History Mother Hx of diabetes mellitus Hx of primary hypertension History of hyperthyroidism Father Hx of gastrointestinal disease Substance use disorder Maternal Grandmother No problems noted. Maternal Grandfather Hx of diabetes mellitus Paternal Grandmother No problems noted. Paternal Grandfather No problems noted. Sister Hx of anxiety disorder History of depression Sister History of depression Hx of anxiety disorder Sister Hx of anxiety disorder History of depression Sister History of depression Hx of anxiety disorder Other Mental health disorder Social History Social History Housing: Apartment Alcohol intake: never Patient Tobacco Use Status: Never used Tobacco Tobacco use type: Cigarette Smoked in Last 30 Days: Yes e-Cigarette/Vaping Use: Never Used Second Hand Smoke Exposure: No Use of substances other than those prescribed or required for medical reasons: No Substance Use Type: Marijuana Advance Directives: No Advance Directives Information Provided: No Do you have a plan to hurt others: No Plan Patient : No service: No Current occupational status: employed Cognitive needs: No Hearing needs: No Vision needs: No Physical Exam ED Vital Signs: Vital Signs - 24 hr 07/19/24 10:51 07/19/24 11:34 Temperature 97.8 F 98.0 F Pulse Rate 73 71 Respiratory Rate 18 16 Blood Pressure 141/82 H 128/88 Pulse Oximetry 98 98 Oxygen Delivery Method Room Air Room Air BMI result Body Mass Index 30.6 Vital signs have been reviewed and appear to be correct. Blood pressure normal. Heart rate normal. Respiratory rate normal. Temperature normal. Oxygen saturation normal. Const General: cooperative, healthy appearing and no acute distress Orientation/consciousness: oriented to person, oriented to place, oriented to time and patient oriented x3 Limitations: no limitations HENMT Head: Yes normocephalic and Yes atraumatic Ears: external ears normal General nose exam: Normal external nose present Face and sinus: Yes face symmetric Mouth: oropharynx normal and moist mucous membranes Throat: Yes uvula midline Eyes Pupils: Equal, round and reactive pupils present Neck Neck: Yes normal visual inspection and Yes supple Resp Effort & Inspection: normal respiratory effort and able to speak in complete sentences Auscultation: clear to auscultation bilaterally Cardio Rate: regular rate Rhythm: regular rhythm Heart sounds: S1 normal heart sound present and S2 normal heart sound present GI Palpation (GI): Soft to palpation and nontender Auscultation: normoactive bowel sounds General: Yes CVA tenderness on the right Back/Spine/Pelvis Back: CVA tenderness Skin General skin exam: elasticity normal and turgor normal Neuro General: oriented to person, oriented to place, oriented to time, patient oriented x3, moves all extremities, no focal motor deficits and CN's II-XI intact bilaterally Cranial nerves: Yes Equal, round and reactive pupils present Cognition (Neuro): normal cognition Extrem General: Yes full ROM, Yes no pedal edema and Yes no calf tenderness Psych Mental Status: mental status grossly normal Affect: normal affect Thought process: Normal thought process present Medications Administered Discontinued Medications Generic Name Dose Route Start Last Admin Trade Name Garyq PRN Reason Stop Dose Admin Morphine Sulfate 4 mg 07/19/24 11:04 07/19/24 11:17 Morphine Sulfate 4 Mg/Ml Cartridge IVPUSH 07/19/24 11:05 4 mg ONCE ONE Administration Protocol Ondansetron HCl 4 mg 07/19/24 11:04 07/19/24 11:17 Ondansetron Hcl 4 Mg/2 Ml Vial IVPUSH 07/19/24 11:05 4 mg ONCE ONE Administration Medical Decision Making Medical Decision Making [facility] Narrative: Patient is a 34-year-old female presenting to the ED with complaint of lower abdominal pain for several days now radiating around to back, as well as nausea and vomiting today. On exam patient is awake, A+Ox3, VS WNL, afebrile, normal neurological exam without focal deficits, physical exam findings as above. Given reported symptoms and physical exam findings, initial differential includes UTI/pyelonephritis, renal/ureteral calculi, hydronephrosis. Less likely appendicitis. Labs notable for mild leukocytosis, no evidence of CALVIN. Urinalysis notable for 3+ blood, 2+ leukocytes, 21-50WBCs, 4+ bacteria, only 6-10 epithelials. Given that patient is symptomatic, will treat for UTI. Will send prescription for cefuroxime 500mg BID x 7d as patient felt her symptoms did not fully resolve with [address] notable for 1.3cm calculi in right renal pelvis with mild hydroureteronephrosis and perinephric stranding. My interpretation is in agreement with the radiologist's interpretation. Discussed with patient that this could mean that she recently passed a stone, or this stone could be intermittently obstructing. Will refer to urology for further evaluation and management. Will discharge home on prednisone, with zofran for nausea and morphine for severe pain. Return precautions discussed at bedside. Patient verbalized understanding of and agreement with plan. Differential Diagnosis Differential Diagnoses: The differential diagnosis associated with the presentation includes As per [facility] Admission/Observation Consideration of admission/observation: Escalation of care including admission/observation considered Patient would have been admitted to the hospital had their work up had any findings where hospital admission was appropriate and their clinical presentation warranted hospital admission. Lab Data [facility] Lab Attestation statement: I reviewed the patient's lab results. As per [facility] 07/19/24 11:02 07/19/24 11:02 Labs: Lab Results 07/19/24 Range/Units 11:02 WBC 12.2 H (4.8-10.8) X10*3/uL RBC 4.73 (4.20-5.50) X10*6/uL Hgb 14.3 (12.0-16.0) g/dl Hct 41.2 (37.0-47.0) % MCV 87.1 (80.0-98.0) fL MCH 30.2 (27.0-33.0) pg MCHC 34.7 (31.0-35.0) g/dl RDW 11.9 (11.0-16.0) % Plt Count 233 (160-400) X10*3/uL MPV 9.5 (9.4-12.3) fL Immature Gran % (Auto) 0.3 (0.0-0.4) % Neut % (Auto) 78.5 H (45-73) % Lymph % (Auto) 16.0 L (20-40) % [place] % (Auto) 4.3 (2-11) % Eos % (Auto) 0.3 (0-4) % Baso % (Auto) 0.6 (0-2) % Lymph # (Auto) 2.0 (1.2-4.9) X10*3/uL [place] # (Auto) 0.5 (0.1-1.2) X10*3/uL Eos # (Auto) 0.0 (0.0-0.4) X10*3/uL Baso # (Auto) 0.1 (0.0-0.2) X10*3/uL Abs Immat Gran (auto) 0.04 H (0.00-0.03) X10*3/uL Absolute Neuts (auto) 9.6 H (2.0-8.3) x10*3/uL Absolute Nucleated RBC 0.000 (0.0-0.012) X10*3/uL Nucleated RBC % (auto) 0.0 (0.0-0.2) /100WBC Sodium 141 (135-145) mmol/L Potassium 3.9 (3.3-5.1) mmol/L Chloride 106 (96-108) mmol/L Carbon Dioxide 26 (22-29) mmol/L Anion Gap 13 (12-20) BUN 10 (9-16) mg/dL Creatinine 0.75 (0.5-1.4) mg/dL Estim Creat Clear Calc 119.0 Estimated GFR > 60 Random Glucose 147 H (60-115) mg/dL Calcium 9.7 D (8.4-10.2) mg/dL Total Bilirubin 0.9 (0.0-1.0) mg/dL Direct Bilirubin 0.3 (0.0-0.5) mg/dL AST 18 (5-31) U/L ALT 25 (0-31) U/L Alkaline Phosphatase 56 (39-117) U/L Total Protein 6.8 (6.5-8.0) g/dL Albumin 4.3 (3.5-5.0) g/dL Lipase 26 (8-78) U/L Beta HCG, Quant < 2 mIU/mL Urine Color Yellow Urine Appearance Cloudy Urine pH 5.5 (5.0-9.0) Ur Specific [place] 1.020 (1.005-1.025) Urine Protein Trace (Neg-Trace) mg/dL Urine Glucose (UA) Negative (Negative) mg/dL Urine Ketones Negative (Negative) mg/dL Urine Blood Large (3+) H (Negative) Urine Nitrite Negative (Negative) Ur Leukocyte Esterase Moderate (2+) H (Negative) Urine RBC 6-10 H (0-2) /HPF Urine WBC 21-50 H (0-5) /HPF Ur Squamous Epith Cells 6-10 (0-2) /HPF Urine Bacteria 4+ (None Seen) Hyaline Casts 0-2 (0-2) /LPF Independent Interpretation I performed an independent interpretation of an: CT Scan Interpretation: CT notable for 1.3cm calculi in right renal pelvis with mild hydroureteronephrosis and perinephric stranding. Radiology Impression Discussion of test interpretation with radiology: I have reviewed the radiologist's reading. Radiologist Impression: CT/CT abdomen pelvis wo IV con IMPRESSION: 1. Right renal pelvic stone measuring up to 1.3 cm. Mild right-sided hydroureteronephrosis with mild periureteral and perinephric stranding. Findings could indicate a recently passed right-sided renal stone versus intermittent obstruction by the renal pelvic stone. No additional renal or ureteral stone. No left-sided hydronephrosis or hydroureter. Unremarkable urinary bladder. 2. Hepatic steatosis. No hepatic parenchymal lesion or biliary ductal dilatation. 3. No intra-abdominal mass, lymphadenopathy, or ascites. External Record Review External record reviewed: Inpatient record, Office record and Outpatient record Prescription Management I considered prescription management with: Pain Medication, Antibiotic and Other Discharge Plan Discharge Clinical Impression: Renal calculus, right, Urinary tract infection Patient Disposition: Home, Self-Care Instructions: Kidney Stones (ED), Urinary Tract Infection in Women (DC), Lithotripsy (DC) Additional Instructions: You were evaluated in the emergency department today for abdominal and flank pain. Your CT scan showed a 1.3cm stone in your right kidney. Your pain could be from this stone moving, or you may have recently passed a different stone. We recommend that you follow up with urology. Call their office to schedule an appointment, they will not call you. You are also being treated for a urinary tract infection with antibiotics. Complete the full course as prescribed. You are being prescribed ondansetron for nausea. You are being prescribed prednisone to decrease inflammation. We recommend that you take 600mg ibuprofen every 6 hours as needed for pain. You are being prescribed a few morphine for severe pain. Return to the emergency department if you develop worsening pain, persistent vomiting, fever 100.4? or greater, inability to urinate, or any other concerning symptoms. Prescriptions: New cefuroxime axetil 500 mg tablet 500 mg PO BID Qty: 14 0RF ondansetron 4 mg tablet,disintegrating 4 mg PO Q8H PRN (Reason: nausea and vomiting) Qty: 10 0RF prednisone 20 mg tablet 20 mg PO DAILY Qty: 5 0RF morphine 15 mg tablet 15 mg PO Q6H PRN (Reason: severe pain (scale score 7-10)) Qty: 8 0RF Rx Instructions: Partial Fill upon patient request. No Action acetaminophen [Tylenol Extra Strength] 500 mg tablet 1,000 mg PO QID PRN (Reason: fever or pain) Qty: 14 0RF cefuroxime axetil 250 mg tablet 250 mg PO BID 7 Days Qty: 14 0RF ondansetron 4 mg tablet,disintegrating 4 mg PO Q8H 3 Days Qty: 9 0RF ondansetron HCl 4 mg tablet 4 mg PO Q6H Referrals: [facility] [Provider Group] Stand Alone Forms: Work/School Release Print Language: Bur[place]ian
[2024-07-19 11:07] LABS: MANUAL DIFF FLAG NO
[2024-07-19 11:09] LABS: Basophils Absolute Auto 0.1 X10*3/uL (0.0-0.2); Basophils Percent Auto 0.6 % (0-2); Eosinophils Percent Auto 0.3 % (0-4); Hematocrit 41.2 % (37.0-47.0); Hemoglobin 14.3 g/dl (12.0-16.0); Imm Gran Abs Auto 0.04 X10*3/uL (0.00-0.03); Imm Gran Pct Auto 0.3 % (0.0-0.4); Mean Corpuscular HGB Conc 34.7 g/dl (31.0-35.0); Mean Corpuscular Hemoglobin 30.2 pg (27.0-33.0); Mean Corpuscular Volume 87.1 fL (80.0-98.0); Mean Platelet Volume 9.5 fL (9.4-12.3); Monocytes Absolute Auto 0.5 X10*3/uL (0.1-1.2); Monocytes Percent Auto 4.3 % (2-11); Neutrophils Absolute Auto 9.6 x10*3/uL (2.0-8.3); Neutrophils Percent Auto 78.5 % (45-73); Platelet Count 233 X10*3/uL (160-400); Red Blood Count 4.73 X10*6/uL (4.20-5.50); Red Cell Distribution Width 11.9 % (11.0-16.0); White Blood Count 12.2 X10*3/uL (4.8-10.8)
[2024-07-19 11:10] LABS: Appearance Urine Cloudy; Color Urine Yellow; Glucose Urine UA Negative (Negative); Leukocyte Esterase Urine Moderate (2+) (Negative); Nitrite Urine Negative (Negative); PH 5.5 (5.0-9.0); UMIC TRIGGER UACC YES; Urine Blood Large (3+) (Negative); Urine Ketones Negative (Negative); Urine Protein Trace mg/dL (Neg-Trace)
[2024-07-19 11:12] LABS: Bacteria Urine 4+ (None Seen); Hyaline Casts Urine 0-2 /LPF (0-2); UACC Culture Trigger YES; WBC Urine 21-50 /HPF (0-5)
[2024-07-19] MEDS: Morphine Sulfate 4 MG/ML CARTRIDGE IVPUSH (11:17)
[2024-07-19] MEDS: ondansetron HCL 4 MG/2 ML VIAL IVPUSH (11:17)
[2024-07-19 11:22] LABS: Alanine Aminotransferase 25 U/L (0-31); Albumin Level 4.3 g/dL (3.5-5.0); Alkaline Phosphatase 56 U/L (39-117); Anion Gap 13 (12-20); Aspartate Amino Transferase 18 U/L (5-31); Bilirubin Direct 0.3 mg/dL (0.0-0.5); Bilirubin Total 0.9 mg/dL (0.0-1.0); Blood Urea Nitrogen 10 mg/dL (9-16); Calcium 9.7 mg/dL (8.4-10.2); Carbon Dioxide 26 mmol/L (22-29); Chloride 106 mmol/L (96-108); Estimated Glomerular Filt Rate > 60; Glucose Random 147 mg/dL (60-115); Lipase 26 U/L (8-78); Potassium 3.9 mmol/L (3.3-5.1); Sodium 141 mmol/L (135-145); Total Protein 6.8 g/dL (6.5-8.0)
[2024-07-19 11:34] VITALS: BP 128/88; PULSE 71; RESP 16; TEMP 36.7; O2SAT 98
[2024-07-19 12:10] LABS: HCG Quantitative < 2 mIU/mL
[2024-07-19 14:16] VITALS: BP 114/80; PULSE 87; RESP 14; TEMP 36.7; O2SAT 97
[2024-07-19 14:18] VITALS: BP 114/80; PULSE 87; RESP 14; TEMP 36.7; O2SAT 97
== END 2024-07-19 14:19 | disposition home or self-care (01) ==
PROVIDERS: Registered Nurse Emergency; Emergency Provider Emergency Medicine
DX: N13.2 Hydronephrosis with renal and ureteral calculous obstruction (principal); N39.0 Urinary tract infection, site not specified; R10.30 Lower abdominal pain, unspecified; I10 Essential (primary) hypertension; Z79.899 Other long term (current) drug therapy
CPT/HCPCS: 36415; 74176; 80048; 80076; 81001; 83690; 84702; 85025; 87086; 87147; 96374; 96375; 99284; J2270; J2405

== ENCOUNTER 2024-09-03 08:04 | Emergency (ER) | payer OTHER, SELFPAY ==
--- NOTE | ~2024-09-03 | CT_ITS ---
EXAMINATION: CT FACIAL BONES WITHOUT CONTRAST CLINICAL INFORMATION: Trauma to nose, pain left eye. COMPARISON: None available. TECHNIQUE: Spiral CT examination of the maxillofacial bones was performed in axial plane, without IV contrast. Sagittal, coronal, and thin section axial reformatted images were constructed from the axial data set. This CT examination was performed using dose optimization techniques as appropriate, variously including the following: *Automated exposure control *Adjustment of mA and/or kV according to patient size (this includes techniques or standardized protocols for targeted exams where dose is matched to indication/reason for exam; i.e. extremities or head) *Use of iterative reconstruction technique DLP = 271 mGy-cm FINDINGS: -There are no maxillofacial fractures. The nasal bones, nasal process, maxillary processes, and orbits are intact. The mandible is intact. The TM joints are normally oriented. There are degenerative changes in the right TM joint. -Right nasal septal deviation is noted with a small rightward spur. -The paranasal sinuses are normally pneumatized. Mastoids and tympanic cavities are normally aerated. -The maxillary wisdom molars are impacted. -There is subtle soft tissue swelling of the superior left orbital rim. -There are no additional acute facial or orbital soft tissue abnormalities. There is fatty change of the parotid glands. -Limited imaging of the intracranial structures demonstrates no abnormalities. CT/CT facial bones wo IV con IMPRESSION: 1. Soft tissue swelling, subtle, of the left supraorbital rim. No discrete maxillofacial or mandibular fracture. 2. Degenerative arthrosis right TM joint. Electronically signed by: Fabio Stover MD 09/03/2024 09:27 AM [facility]
[2024-09-03 08:08] VITALS: BP 134/85; PULSE 73; RESP 18; TEMP 35.7; O2SAT 98; BMI 30.8
--- NOTE | 2024-09-03 08:25 | ED_ITS ---
HPI - General Adult General Chief complaint: Epistaxis Stated complaint: ? Fractured Nose Time Seen by Provider: 09/03/24 08:23 Source: patient Mode of arrival: ambulatory Limitations: no limitations History of Present Illness ED Provider: ERIKA SULTANA PA-C HPI narrative: 34 year old female with pmhx significant for anemia, anxiety, PCOS presents to the ED today with nasal pain x12 hours. Patient states she was helping her sister move a pull out couch when the metal part of the bed swung out and struck her in the nose. Patient states that she was stunned for few seconds however did not lose consciousness. She did not fall to the ground or strike her head. Not on anticoagulation. Denies any epistaxis. Reports pain to the nose since onset. No difficulty breathing. Pain is extending into her left eye. She reports mild blurred vision within the left eye. No FB sensation. No tearing or discharge from the eye. She does wear glasses. Does not wear contacts. Denies headache, vision loss, eye pain, dizziness, N/V, epistaxis. Related Data Previous Rx's ?Medication ?Instructions ?Recorded acetaminophen 500 mg tablet 1,000 mg (2 x 500 mg) PO QID PRN 08/09/22 (Tylenol Extra Strength) fever or pain #14 tabs amoxicillin 500 mg-potassium 1 tab PO TID 5 days #15 tabs 09/05/24 clavulanate 125 mg tablet (Augmentin) Allergies Allergy/AdvReac Type Severity Reaction Status Date / Time No Known Allergies Allergy Verified 09/03/24 20:24 Review of Systems Review of Systems: Constitutional: No fever, chills, fatigue, night sweats, weight changes ENT/Mouth: No ear pain, hearing loss, nasal congestion, sinus pain, rhinorrhea, sore throat, +nasal pain Eyes: No eye pain, swelling, redness, vision changes, discharge Cardio: No chest pain, palpitations, BELLE, orthopnea, peripheral edema Pulm: No SOB, cough, sputum, wheezing, dyspnea, hemoptysis GI: No nausea, vomiting, hematemesis, abdominal pain, diarrhea, constipation, hematochezia, melena : No irregular bleeding, dysuria, frequency, urgency, hesitancy, hematuria, flank pain, urinary flow changes, urinary incontinence or retention MSK: No back pain, neck pain, joint pain, myalgias Skin: No lesions, rashes Neuro: No weakness, numbness, paresthesias, LOC, dizziness, headache Psych: No anxiety/panic, depression, SI/HI, AH/VH All other systems reviewed and are negative. [facility] Past Medical History Attestation statement: The following information was validated with the patient. Source: old records reviewed and nursing notes reviewed Medical History PCOS (polycystic ovarian syndrome) Vitamin D deficiency Anxiety Post-concussion headache Supervision of normal in second trimester Second trimester Bleeding in early History of 2019 novel coronavirus disease (COVID-19) Less than 8 weeks gestation of Threatened Anemia Surgical History History of surgery Hx of myringotomy H/O tubal ligation Family History Family History Mother Hx of diabetes mellitus Hx of primary hypertension History of hyperthyroidism Father Hx of gastrointestinal disease Substance use disorder Maternal Grandmother No problems noted. Maternal Grandfather Hx of diabetes mellitus Paternal Grandmother No problems noted. Paternal Grandfather No problems noted. Sister Hx of anxiety disorder History of depression Sister History of depression Hx of anxiety disorder Sister Hx of anxiety disorder History of depression Sister History of depression Hx of anxiety disorder Other Mental health disorder Social History Social History Housing: Apartment Alcohol intake: never Patient Tobacco Use Status: Never used Tobacco Tobacco use type: Cigarette e-Cigarette/Vaping Use: Never Used Second Hand Smoke Exposure: No Substance Use Type: Marijuana service: No Current occupational status: employed Cognitive needs: No Hearing needs: No Vision needs: No Physical Exam ED Vital Signs: Vital Signs - 24 hr 09/03/24 08:08 Temperature 96.3 F L Pulse Rate 73 Respiratory Rate 18 Blood Pressure 134/85 Pulse Oximetry 98 Oxygen Delivery Method Room Air BMI result Body Mass Index 30.8 vital signs stable General: Well appearing, in no acute distress. Skin: Warm, dry, intact. No rashes or lesions. Head: Normocephalic, atraumatic. EENT: Hearing is intact b/l. Moist mucous membranes.? + Minimal periorbital swelling to left eye. no racoon eyes. No enophthalmous or exopthalmous. EOMs intact without pain or entrapment. PERRLA. No photophobia. No obvious foreign body or abrasion. No conjunctival injection. No hazy cornea. Visual acuity (is not wearing her glasses). VA OD 20/50, IOP OS 20/100. IOP OD 14, OS 15 Cardiac: Chest wall symmetric. RRR Lungs: Normal respiratory effort without accessory muscle use. CTA bilaterally Ext: Upper and lower extremities atraumatic, without tenderness, deformity, swelling or erythema Neuro: AOx3. Normal speech. Ambulating with steady gait. Psych: Appropriate mood and affect. Responds appropriately to questions. Course Course Course Narrative: Facial CT with soft tissue swelling of the left supraorbital rim without discrete maxillofacial or mandibular fracture. No acute nasal or orbital fracture. Patient is well appearing. I do not have clinical concern for fracture. no evidence of septal hematoma. At this time, will discharge patient home with pain control and ENT follow up. Patient has remained stable throughout ED visit today. Discussed worrisome signs and symptoms and when to return to the ED. All questions answered at this time. Patient is agreeable with disposition and stable for discharge. Medications Administered Discontinued Medications Generic Name Dose Route Start Last Admin Trade Name Freq PRN Reason Stop Dose Admin Ketorolac Tromethamine 30 mg 09/03/24 08:51 09/03/24 09:20 Ketorolac Tromethamine 30 Mg/Ml Vial IM 09/03/24 08:52 30 mg ONCE ONE Administration Medical Decision Making Medical Decision Making MDM Narrative: 34 year old female with pmhx significant for anemia, anxiety, PCOS presents to the ED today with nasal pain x12 hours. Vital signs stable. she is nontoxic ap pearing and in NAD. on exam, minimal periorbital swelling to left eye. no racoon eyes. No enophthalmous or exopthalmous. EOMs intact without pain or entrapment. PERRLA. No photophobia. No obvious foreign body or abrasion. No conjunctival injection. No hazy cornea. Visual acuity (is not wearing her glasses). VA OD 20/50, IOP OS 20/100. IOP OD 14, OS 15. no epistaxis. no septal hematoma. no drainage from the nose. nares patent bilaterally. Differential diagnosis includes nasal contusion, nasal fracture, facial fracture, epistaxis. unlikely ICH, CVA/TIA, blow out fracture, globe rupture, septal hematoma. NIH 0. Plan for CT facial bones, pain control, re-evaluation. Differential Diagnosis Differential Diagnoses: The differential diagnosis associated with the presentation includes as above. Admission/Observation not indicated Independent Interpretation I performed an independent interpretation of an: CT Scan Interpretation: CT facial bones without acute fracture, deviated septum Radiology Impression Discussion of test interpretation with radiology: I have reviewed the radiologist's reading. Radiologist Impression: EXAMINATION: CT FACIAL BONES WITHOUT CONTRAST CLINICAL INFORMATION: Trauma to nose, pain left eye. COMPARISON: None available. TECHNIQUE: Spiral CT examination of the maxillofacial bones was performed in axial plane, without IV contrast. Sagittal, coronal, and thin section axial reformatted images were constructed from the axial data set. This CT examination was performed using dose optimization techniques as appropriate, variously including the following: *Automated exposure control *Adjustment of mA and/or kV according to patient size (this includes techniques or standardized protocols for targeted exams where dose is matched to indication/reason for exam; i.e. extremities or head) *Use of iterative reconstruction technique DLP = 271 mGy-cm FINDINGS: -There are no maxillofacial fractures. The nasal bones, nasal process, maxillary processes, and orbits are intact. The mandible is intact. The TM joints are normally oriented. There are degenerative changes in the right TM joint. -Right nasal septal deviation is noted with a small rightward spur. -The paranasal sinuses are normally pneumatized. Mastoids and tympanic cavities are normally aerated. -The maxillary wisdom molars are impacted. -There is subtle soft tissue swelling of the superior left orbital rim. -There are no additional acute facial or orbital soft tissue abnormalities. There is fatty change of the parotid glands. -Limited imaging of the intracranial structures demonstrates no abnormalities. CT/CT facial bones wo IV con IMPRESSION: 1. Soft tissue swelling, subtle, of the left supraorbital rim. No discrete maxillofacial or mandibular fracture. 2. Degenerative arthrosis right TM joint. Electronically signed by: Fabio Stover MD 09/03/2024 09:27 AM [facility] External Record Review External record reviewed: Inpatient record Prescription Management I considered prescription management with: Pain Medication Social Determinants Patient?s care significantly limited by Social Determinants of Health including: Other Social Determinant of Health Critical Care Time Critical Care Time Critical Care Time: No Discharge Plan Discharge Clinical Impression: Contusion of nose Patient Disposition: Home, Self-Care Instructions: Contusion in Adults (ED), Nasal Contusion (ED) Additional Instructions: You were evaluated in the ED today for a nasal injury. The CT of your facial bones does not demonstrate any acute fracture. As discussed, continue NSAIDs at home. Naproxen has been sent to your pharmacy for you to take as needed for pain control. Do not take this with other NSAIDs such as ibuprofen as this can cause increased risk of GI bleeding. Apply ice for 20 minutes at a time. Follow up with your primary care provider. I have also provided you with a referral to ENT. Call them to establish care. They will not call you. Return with any new or worsening symptoms. In the case of an emergency call 911. Prescriptions: No Action amoxicillin-pot clavulanate [Augmentin] 500-125 mg tablet 1 tab PO TID 5 Days Qty: 15 0RF acetaminophen [Tylenol Extra Strength] 500 mg tablet 1,000 mg PO QID PRN (Reason: fever or pain) Qty: 14 0RF Referrals: [facility]] [facility] [Provider Group] Greta Willard MD [Physician] - Interventions: ED Discharge Assessment Last Done: 09/03/24 10:15 Discharge Date/Time: 09/03/24 10:16 Print Language: Niuean
[2024-09-03] MEDS: Ketorolac Tromethamine 30 MG/ML VIAL IM (09:20)
[2024-09-03 09:57] VITALS: BP 142/83; PULSE 69; RESP 14; TEMP 36.5; O2SAT 100
[2024-09-03 10:15] VITALS: BP 142/83; PULSE 69; RESP 14; TEMP 36.5; O2SAT 100
== END 2024-09-03 10:16 | disposition home or self-care (01) ==
PROVIDERS: Emergency Provider Student in an Organized Health Care Education/Training Program; PCP Internal Medicine
DX: S00.33XA Contusion of nose, initial encounter (principal); R04.0 Epistaxis; H57.12 Ocular pain, left eye; R51.9 Headache, unspecified; J34.89 Other specified disorders of nose and nasal sinuses; H53.8 Other visual disturbances; X58.XXXA Exposure to other specified factors, initial encounter; Y93.9 Activity, unspecified; Y99.8 Other external cause status; Y92.89 Other specified places as the place of occurrence of the external cause
CPT/HCPCS: 70486; 81003; 96372; 99202; 99283; 99284; J1885

== ENCOUNTER 2024-09-03 14:46 | Outpatient (AMB) | payer OTHER, SELFPAY ==
--- NOTE | 2024-09-03 15:01 | A.OFFVIS_ITS ---
Intake Visit Reasons: Kidney stones Intake Note: New patient is present for Kidney stones Urology Med:None Antibiotic Allergy: None Blood Thinner: None Channel Director Required: No Accompanied by: Self / Same As Patient Allergies No Known Allergies Allergy (Verified 09/03/24 20:24) Medication List - Last Reconciled 09/03/24 by TANVIR Davis acetaminophen (Tylenol Extra Strength) 1,000 mg (2 x 500 mg) PO QID PRN cefuroxime axetil 500 mg PO BID naproxen 500 mg PO Q12H PRN sulfamethoxazole-trimethoprim 800-160 mg (Bactrim DS) 1 tab PO BID 7 days HPI Comments Details: Jess is a very pleasant 34-year-old female patient. She has a past medical history of PCOS, vitamin-D deficiency, anxiety, and anemia. She presents to the office today as a new patient for nephrolithiasis. In discussion with the patient today she reports having seeked emergency room care services late last year for ongoing right-sided flank pain she had been experiencing at which time a CT KUB was ordered for further assessment evaluation. These results were reviewed with the patient today. 07/13 bilateral kidneys are normal in size, shape, and attenuation. 1.3 cm nonobstructing right renal pelvic stone. Mild right-sided hydroureteronephrosis with mild perinephric stranding. No left- sided hydronephrosis and or renal calculi noted. The bladder is unremarkable. When asked she does report a previous history of nephrolithiasis however never requiring surgical intervention. She continues to experience intermittent right-sided flank pain. She also reports feeling she continues to experience UTI like symptoms. In office urinalysis results reviewed with the patient today 1+ leukocytes. She reports noting dysuria with urinary urgency and frequency. She otherwise denies incontinence, nocturia, hematuria,foul smelling urine, changes to urinary stream, fever, and or chills. [facility] Medical History PCOS (polycystic ovarian syndrome) Vitamin D deficiency Anxiety Post-concussion headache Supervision of normal in second trimester Second trimester Bleeding in early History of 2019 novel coronavirus disease (COVID-19) Less than 8 weeks gestation of Threatened Anemia Surgical History History of surgery Hx of myringotomy H/O tubal ligation Family History Mother Hx of diabetes mellitus Hx of primary hypertension History of hyperthyroidism Father Hx of gastrointestinal disease Substance use disorder Maternal Grandmother No problems noted. Maternal Grandfather Hx of diabetes mellitus Paternal Grandmother No problems noted. Paternal Grandfather No problems noted. Sister Hx of anxiety disorder History of depression Sister History of depression Hx of anxiety disorder Sister Hx of anxiety disorder History of depression Sister History of depression Hx of anxiety disorder Other Mental health disorder Social History Housing: Apartment Alcohol intake: never Patient Tobacco Use Status: Never used Tobacco Tobacco use type: Cigarette e-Cigarette/Vaping Use: Never Used Second Hand Smoke Exposure: No Substance Use Type: Marijuana service: No Current occupational status: employed Cognitive needs: No Hearing needs: No Vision needs: No Female Reproductive History Menstrual Age of Menarche: 12 Review of Systems Const All systems reviewed & are unremarkable except as noted in HPI and below Physical Exam Const General: cooperative, healthy appearing, comfortable, no acute distress, well developed, alert and awake Orientation/consciousness: patient oriented x3 Limitations: no limitations HEENT Head: Yes normal to inspection, Yes normocephalic and Yes atraumatic Ears: hearing grossly normal bilaterally Eyes General: appearance normal, both eyes and all related structures Neck Neck: Yes normal visual inspection and Yes trachea midline Chest Chest palpation & inspection: normal inspection of the chest Resp Effort & Inspection: normal respiratory effort and able to speak in complete sentences Cardio Rate: regular rate GI Inspection: Yes normal to inspection General: Yes no CVA tenderness Back/Spine/Pelvis Back: no CVA tenderness Skin General skin exam: no rashes or lesions noted Neuro General: patient oriented x3 Extrem General: Yes normal to inspection Psych Appearance: grossly normal and well kempt Mental Status: mental status grossly normal Speech and movement: Normal speech and movement present and Clear speech present Affect: normal affect Attitude: cooperative Thought process: Normal thought process present Thought content: Normal thought content present Insight: Fair insight present (Psych) Judgement: Fair judgement present (Psych) Results AMB Urinalysis, Automated UA Leukoctes 70 Mitch/uL Last Edit by Elizabeth Iyer, A on 09/03/24 15:11 UA Nitrite Negative Last Edit by Elizabeth Iyer, A on 09/03/24 15:11 UA Urobilinogen 1 mg/dL Last Edit by Elizabeth Iyer, A on 09/03/24 15:11 UA Protein 30 mg/dL Last Edit by Elizabeth Iyer, A on 09/03/24 15:11 UA pH 6.0 Last Edit by Elizabeth Iyer, A on 09/03/24 15:11 UA Blood 80 Vlad/uL Last Edit by Elizabeth Iyer, A on 09/03/24 15:11 UA Specific [place] 1.015 Last Edit by Elizabeth Iyer, A on 09/03/24 15: 11 UA Ketone Positive Last Edit by Elizabeth Iyer, A on 09/03/24 15:11 UA Bilirubin 0 mg/dL Last Edit by Elizabeth Iyer, A on 09/03/24 15:11 UA Glucose 0 mg/dL Last Edit by Elizabeth Iyer, A on 09/03/24 15:11 Results Reviewed Results Reviewed: Laboratory Last Values Urine pH (Auto) 6.0 09/03/24 15:10 Specific [place] (Auto) 1.015 09/03/24 15:10 Urine Protein (Auto) 30 mg/dL 09/03/24 15:10 Glucose (UA)(Auto) 0 mg/dL 09/03/24 15:10 Urine Ketones (Auto) Positive 09/03/24 15:10 Urine Blood (Auto) 80 Vlad/uL 09/03/24 15:10 Urine Nitrite (Auto) Negative 09/03/24 15:10 Urine Bilirubin (Auto) 0 mg/dL 09/03/24 15:10 Urine Urobilinogen (Auto) 1 mg/dL 09/03/24 15:10 Leukocyte Esterase (Auto) 70 Mitch/uL 09/03/24 15:10 Date of Service: 07/19/24 Procedure(s): CT abdomen pelvis wo IV con EXAMINATION: CT ABDOMEN AND PELVIS WITHOUT CONTRAST FINDINGS: LUNG BASES: The visualized lung bases are unremarkable. LIVER, GALLBLADDER, AND BILIARY TREE: The liver is normal in enlarged with mild hypoattenuation, consistent with steatosis. Normal contour. Fatty sparing adjacent to the gallbladder fossa. No focal hepatic lesion or biliary ductal dilatation is present. The gallbladder is unremarkable with no evidence of radiopaque gallstones, gallbladder wall thickening, or obvious pericholecystic inflammatory changes. PANCREAS: Unremarkable. SPLEEN: Unremarkable. ADRENAL GLANDS: Unremarkable. KIDNEYS AND URETERS: The kidneys are normal in size, shape, and attenuation. Right renal pelvic stone measuring approximately 1.3 x 0.7 x 0.9 cm and 1280 Hounsfield units. This is located 12.8 cm from the posterior axillary line. Mild right-sided hydroureteronephrosis with mild periureteral and perinephric stranding. No additional renal or ureteral stone. No left-sided hydronephrosis or hydroureter. Findings could indicate a recently passed right-sided renal stone versus intermittent obstruction by the renal pelvic stone. BLADDER: Unremarkable. No cystic calcification. GASTROINTESTINAL TRACT: No small or large bowel obstruction. No bowel wall thickening or inflammatory change. Unremarkable appendix. PERITONEAL CAVITY: No intra-abdominal free air or free fluid. No intra-abdominal mass or organized fluid collection/abscess formation. ABDOMINAL WALL: No significant hernia is appreciated. LYMPH NODES: No lymphadenopathy. VASCULAR: Unremarkable. PELVIC VISCERA: IUD within the uterus. OSSEOUS STRUCTURES: Unremarkable. IMPRESSION: 1. Right renal pelvic stone measuring up to 1.3 cm. Mild right-sided hydroureteronephrosis with mild periureteral and perinephric stranding. Findings could indicate a recently passed right-sided renal stone versus intermittent obstruction by the renal pelvic stone. No additional renal or ureteral stone. No left-sided hydronephrosis or hydroureter. Unremarkable urinary bladder. 2. Hepatic steatosis. No hepatic parenchymal lesion or biliary ductal dilatation. 3. No intra-abdominal mass, lymphadenopathy, or ascites. Assessment & Plan Assessment & Plan (1) Nephrolithiasis: Code(s): N20.0 - Calculus of kidney Category: Medical (2) Flank pain: Code(s): R10.9 - Unspecified abdominal pain Category: Medical (3) Dysuria: Code(s): R30.0 - Dysuria Category: Medical (4) Lower urinary tract symptoms: Code(s): R39.9 - Unspecified symptoms and signs involving the genitourinary system Category: Medical Plan: Plan Extracorporeal Shock Wave Lithotripsy We discussed the nature of the decision and reasonable alternatives for performing the above surgery. Interventions include chemical dissolution, ESWL, ureteroscopy with laser lithotripsy and stent placement, PCNL. ? Options such as medical therapy were discussed. The relative uncertainties and benefits related to each alternate procedure were adequately discussed. General surgical risks including, but not limited to, pain, bleeding, infection, myocardial infarction, pulmonary embolus, deep vein thrombosis and cerebrovascular accident which may result in further hospitalization were discussed.? Full disclosure of the procedure as well as all major risks, benefits and complications were discussed including but not limited to risks of bleeding, injury to the kidney with hematoma or sophia-hematoma, failure to fragments stone, potential for ureteric obstruction from stone passage and need for secondary procedures.? There is a small long-term risk of hypertension and a question leana of diabetes.? Success rate of fragmentation and passage is approximately 70- 75%.? This is compared to the risks and benefits for ureteroscopy which has a higher success rate but is a more invasive procedure. The success rate of the procedure was discussed. Success of the procedure in the short-term does not necessarily guarantee that long-term success will be maintained. Suitable follow up will need to be maintained. The patient showed understanding of the discussion as well as the typical recovery time, and the outpatient nature of this procedure. Opportunity was given for questions. Repeat-back protocol used to confirm understanding. They wish to proceed with right ESWL Plan In office urinalysis results reviewed with the patient today; as noted above; will send for urine culture. Previous CT results reviewed with the patient today; as noted above. Discussed, educated, and stressed the importance of adequate hydration relation to nephrolithiasis as well as lower urinary tract symptoms. We discussed further intervention to include ureteroscopy verses ESWL versus surveillance monitoring; risks and benefits of these interventions were discussed. Start Bactrim as discussed and prescribed. We discussed potential causes of nephrolithiasis as well as lower urinary tract symptoms patient was experiencing. Will schedule for right-sided ESWL as discussed. Follow-up per doctor's orders; or sooner with any issues, concerns, and or questions. Orders: Orders AMB Urinalysis Automated Today Z13.9 - Encounter for screening, unspecified Urine Culture Today R39.9 - Unspecified symptoms and signs involving the genitourinary system Medications: New sulfamethoxazole-trimethoprim 800-160 mg (Bactrim DS) 1 tab PO BID 7 days 14 tabs 0RF N39.0 - Urinary tract infection, site not specified Patient Instructions: The patient had an opportunity to ask questions regarding the treatment plan. All questions were answered. Physical exam, labs, and imaging were discussed and reviewed in detail. As well as risks, benefits, and discussion of treatment choices. No major barriers to understanding were identified. The patient expressed understanding and agreement with the above treatment plan. The patient was made aware they should contact our office by phone for worsening of their current condition, the appearance of new symptoms, or with any questions or concerns. Compliance is encouraged with any medications and follow up testing that is ordered. It is a privilege to be allowed the opportunity to participate in? your urological care.? Again, if you have any questions or concerns If you have any questions or concerns please do not hesitate to contact me. The office is [phone]. This note is constructed using voice recognition software. While every effort has been made to ensure accuracy window decorator errors may have been included. Yours sincerely, TANVIR Davis Coding Level of Care Code New Pt Level 4 (88774) Diagnoses Nephrolithiasis N20.0 Flank pain R10.9 Dysuria R30.0 Lower urinary tract symptoms R39.9
== END 2024-09-03 15:45 | disposition home or self-care (01) ==
PROVIDERS: Visit Provider Nurse Practitioner Family
DX: N20.0 Calculus of kidney (principal); R10.9 Unspecified abdominal pain; R30.0 Dysuria; R39.9 Unspecified symptoms and signs involving the genitourinary system; Z13.9 Encounter for screening, unspecified
CPT/HCPCS: 99204

== ENCOUNTER 2024-09-03 15:55 | Outpatient (REF) | payer OTHER, SELFPAY | END 2024-09-03 15:56 | disposition home or self-care (01) | LOC: HO.LAB 15:55 | PROVIDERS: Visit Provider Nurse Practitioner Family | DX: R39.9 Unspecified symptoms and signs involving the genitourinary system (principal); Z13.9 Encounter for screening, unspecified | CPT/HCPCS: 87086; 87147 ==

== ENCOUNTER → 2024-10-08 07:18 | Outpatient (BNV) | payer OTHER, SELFPAY | PROVIDERS: PCP Internal Medicine; Visit Provider Radiology Diagnostic Radiology | DX: N20.0 Calculus of kidney (principal) | CPT/HCPCS: 74018 ==

== ENCOUNTER 2024-10-08 09:10 | Day surgery (SDC) | payer OTHER, SELFPAY ==
[2024-10-03 14:45] VITALS: BMI 31.6
--- NOTE | ~2024-10-08 | XR_ITS ---
EXAMINATION: XR ABDOMEN KUB CLINICAL INDICATION: right kidney stone COMPARISON: No prior. Correlation made with CT abdomen and pelvis 07/19/2024. TECHNIQUE: AP view of the abdomen. FINDINGS: Bowel gas pattern is normal/nonspecific. No focally dilated loop. There is a 1.5 x 0.9 cm oval calcification in the region of the right central kidney, likely within the pelvis. No additional calcifications. No organomegaly. Lung bases clear. No osseous abnormalities. IUD within the central pelvis. XR/XR KUB IMPRESSION: 1.5 x 0.9 cm oval calcification in the region of the right renal pelvis. Electronically signed by: Fabio Stover MD 10/08/2024 09:46 AM EST
--- NOTE | 2024-10-08 10:01 | HO.ANESPROP2 ---
HPI - Anesthesia Eval Consult details Narrative: lithotripsy PMFSH Active Problems Active Problems: All Active Problems Lower urinary tract symptoms (Acute) Dysuria (Acute) Flank pain (Acute) Nephrolithiasis (Acute) IUD check up (Acute) Hypertension (Acute) Well woman exam (Acute) Abnormal uterine bleeding (AUB) (Acute) Scabies exposure (Acute) Breast lump (Acute) Nausea and vomiting during (Acute) PCOS (polycystic ovarian syndrome) (Acute) Vitamin D deficiency (Acute) Anxiety (Acute) Post-concussion headache (Acute) History of 2019 novel coronavirus disease (COVID-19) (Acute) Past Medical History Medical History PCOS (polycystic ovarian syndrome) Vitamin D deficiency Anxiety Post-concussion headache Supervision of normal in second trimester Second trimester Bleeding in early History of 2019 novel coronavirus disease (COVID-19) Less than 8 weeks gestation of Threatened Anemia Family History Family History Mother Hx of diabetes mellitus Hx of primary hypertension History of hyperthyroidism Father Hx of gastrointestinal disease Substance use disorder Maternal Grandmother No problems noted. Maternal Grandfather Hx of diabetes mellitus Paternal Grandmother No problems noted. Paternal Grandfather No problems noted. Sister Hx of anxiety disorder History of depression Sister History of depression Hx of anxiety disorder Sister Hx of anxiety disorder History of depression Sister History of depression Hx of anxiety disorder Other Mental health disorder Family history of problems with anesthesia: No Surgical History Surgical History Hx of dilation and curettage (07/20/23) History of surgery Hx of myringotomy H/O tubal ligation History of Problems with Anesthesia: No Social History Social History Housing: Apartment Alcohol intake: never Patient Tobacco Use Status: Never used Tobacco Tobacco use type: Cigarette e-Cigarette/Vaping Use: Never Used Second Hand Smoke Exposure: No Substance Use Type: Marijuana Advance Directives: No Advance Directives Information Provided: Yes service: No Current occupational status: employed Cognitive needs: No Hearing needs: No Vision needs: No Meds Allergies Allergy/AdvReac Type Severity Reaction Status Date / Time No Known Allergies Allergy Verified 10/08/24 09:46 Active Medications: Current Medications Lactated Ringer's (Lr) 1,000 mls @ 50 mls/hr IVCONT .Q20H MACIE Exam Height,Weight and Vital Signs: Height 5 ft 6 in Weight 88.904 kg Airway Mallampati Class: II TM Dist: >3cm Neck ROM: Full Heart: rrr Lungs: cta Assessment and Plan Assessment Anesthesia Assessment: Anesthesia Plan Discussed Final Anesthetic Review Family History of Problems with Anesthesia: No History of Problems with Anesthesia: No NPO: Yes ASA Class: II Final Preanesthetic Review: No Changes in Pt Med Stat, Meds/Allgs Chart Reviewed, Consent Obtained/Reviewed and Anes Risks/Benef Reviewed Patient Risk: Low Procedure Risk: Low Anesthetic Plan Anesthetic Plan: GA and TIVA Disposition: Standard PACU
[2024-10-08 10:08] VITALS: BP 112/82; PULSE 80; RESP 15; TEMP 36.6; O2SAT 97; BMI 30.2
[2024-10-08] MEDS: Lactated Ringers 1,000 ML 999 ML IV (10:19)
--- NOTE | 2024-10-08 10:20 | MHC.SHP ---
Pre-Procedural Eval Section A - 24 Hr Update-Section A only Date of Service: 10/08/24 The patient is an INPATIENT: No Changes since office visit: No Cold of Flu in the past 2 weeks, No New Medical Problems, No Changes in Medication and No Patient answered all questions The patient has been examined within 24 hours of the surgical procedure. The History & Physical has been completed within 30 days and I have reviewed it.: Yes Section B - Complete if H&P > 30 days Chief Complaint: Calculus of kidney Details of Present Illness: 13mm right renal stone Relevant Family History (Specify if Yes): No Relevant Social History: None Present Medications: see Short Stay Collaborative assessment Medical History: No relevant PMH History of Previous Operations: No relevant previous surgery Allergies: Allergies Allergy/AdvReac Type Severity Reaction Status Date / Time No Known Allergies Allergy Verified 10/08/24 09:46 Review of Systems Sugical H&P ROS: Negative: Constitution, Cardiovascular, Respiratory, Neurological, Psychiatric, Hem-Onc, Allergic/Immunologic, Gastrointestinal, Genitourinary, Musculoskeletal, Integumentary, Endocrine and Eyes/Ears/Nose/Throat Exam Surgical H&P Exam: Normal: HEENT, Normal: Heart, Normal: Lungs, Normal: Extremities, Normal: Abdomen, Normal: Skin and Normal: Neurological Plan Diagnosis/Plan: Unchanged (right renal stone 12mm) I have reviewed the history and physical and performed a pertinent physical examination on my patient. No changes have occurred unless specified. Time Spent With Patient Time: Total time managing care of this patient today ____ minutes.
[2024-10-08] MEDS: Acetaminophen 1,000 MG/100 ML PIGGYBACK 400 MG IV (10:21)
--- NOTE | 2024-10-08 11:02 | W.PM.OPN ---
Operative Note Operative Note Date of Service: 10/08/24 Narrative: PreOperative Diagnosis: right Renal stones Post Operative Diagnosis: right Renal stones Procedure: right ESWL Surgeon: Dr Cody Eugene Anesthesia: mac/sedation Indications for procedure: The patient understands ESWL may be a staged procedure and subsequent intervention may be required based on imaging after ESWL. Quoted stone clearance rates for a solitary procedure are in the 70-80% range based primarily on stone location. They also understand there is a risk of bleeding to the kidney, infection, damage to adjacent organs, and stone migration following the procedure. - Imaging 13 mm right renal stone Procedure optimization has been performed with IV acetaminophen given in the holding area and 1 L of lactated Ringer's to be given in order to optimize the fluid-stone interface. 20 mg of IV Lasix will be given in the last 5 minutes of the procedure to optimize stone clearance. Procedure: After informed consent was verified the patient was brought to the operating room and placed in a supine position. Anesthesia was performed per protocol. Safety pause time-out was performed. Imaging was displayed in the room and laterality confirmed. ESWL was performed. The 1st 500 shocks were performed at 60 hertz. These were performed with increasing power. Once maximum power was reached the rate was increased initially to 120 then 180 hertz. A total of 2500 shocks were given. Targeted imaging with ultrasound/fluoroscopy showed stone smudging suggestive of disintegration. The patient tolerated the procedure well and was transferred to the recovery area upon completion. Post procedure imaging will be organized. There was no evidence for flank discoloration.
[2024-10-08 11:32] VITALS: BP 122/85; PULSE 79; RESP 22; TEMP 36.2; O2SAT 93
[2024-10-08 11:37] VITALS: BP 120/84; PULSE 75; RESP 16; O2SAT 95
[2024-10-08] MEDS: Ketorolac Tromethamine 15 MG/ML VIAL IVPUSH (11:40)
[2024-10-08 11:42] VITALS: BP 128/91; PULSE 67; RESP 16; O2SAT 95
[2024-10-08 11:48] VITALS: BP 126/87; PULSE 67; RESP 16; O2SAT 95
[2024-10-08 12:03] VITALS: BP 124/90; PULSE 75; RESP 18; TEMP 36.3; O2SAT 98
== END 2024-10-08 12:16 | disposition home or self-care (01) ==
PROVIDERS: PCP Internal Medicine; Visit Provider Urology
PROC: (CPT 50590; principal; 2024-10-08 10:50)
DX: N20.0 Calculus of kidney (principal); R10.9 Unspecified abdominal pain; R30.0 Dysuria; R39.9 Unspecified symptoms and signs involving the genitourinary system; D64.9 Anemia, unspecified; E28.2 Polycystic ovarian syndrome; E55.9 Vitamin D deficiency, unspecified; F41.9 Anxiety disorder, unspecified; Z79.1 Long term (current) use of non-steroidal anti-inflammatories (NSAID); Z79.899 Other long term (current) drug therapy; Z98.51 Tubal ligation status
CPT/HCPCS: 50590; 74018; J0131; J1885; J1940; J2003; J2250; J2704; J3010

== ENCOUNTER → 2024-10-08 09:10 | Outpatient (BNV) | payer OTHER, SELFPAY | PROVIDERS: PCP Internal Medicine; Visit Provider Urology | DX: N20.0 Calculus of kidney (principal) | CPT/HCPCS: 50590 ==

== ENCOUNTER 2024-11-04 12:28 | Outpatient (REF) | payer OTHER, SELFPAY ==
--- NOTE | ~2024-11-04 | US_ITS ---
CLINICAL HISTORY: N20.0 - Calculus of kidney US Renal Comparison: None Findings: Right kidney normal size and echotexture, 11.2 cm length. Left kidney normal size and echotexture, 11.6 cm length. No hydronephrosis of either kidney. Normal color Doppler IMPRESSION: 1. Normal kidneys. No current renal calculi identified. This document has been electronically signed by: Bassam Amanda MD on 11/05/2024 18:15:29
--- OUTSIDE RECORDS SUMMARY | 2024-11-04 14:43 | XMS_ITS | Clinical Summary ---
Author Organization [facility] it Address [address] [place] [address] Care Team Providers Care Creative Guru Name Role Phone Unavailable Primary Care Provider Unavailabl e Social History Tobacco Use Types Packs/Day Years Used Date Smoking Tobacco: Never Assessed Comments Unknown Sex and Gender Information Value Date Recorded Sex Assigned at Not on file Legal Sex Female 9:55 AM EST Gender Identity Not on file Sexual Orientation Not on file Plan of Treatment Health Maintenance Due Date Last Done Comments DTaP,Tdap,and Td Vaccines (1 - Tdap) 2011 Hepatitis B Vaccines (1 of 3 - 19+ 3-dose series) 2011 Cervical Cancer Screening: P ap Smear 2013 COVID-19 Vaccine ( - 2023-2 5 season) 2024 Influenza Vaccine (#1) 2024 HIB Vaccines Aged Out No longer eligi ble based on patient's age to complete this topic HPV Vaccines Aged Out No longer eligi ble based on patient's age to complete this topic Hepatitis A Vaccines Aged Out No long er eligible based on patient's age to complete this topic IPV Vaccines Aged Out No longer eligi ble based on patient's age to complete this topic MMR Vaccines Aged Out No longer eligi ble based on patient's age to complete this topic Meningococcal ACWY Vaccine Aged Out N o longer eligible based on patient's age to complete this topic Meningococcal B Vacine Aged Out No lo nger eligible based on patient's age to complete this topic Pneumococcal Vaccine: Pediat rics (0 to 5 Years) and At-Risk Patients (6 to 64 Years) Aged Out No longer eligible b ased on patient's age to complete this topic RSV Immunization Patients Un leora 20 months Aged Out No longer eligible b ased on patient's age to complete this topic Varicella Vaccines Aged Out No longer eligible based on patient's age to complete this topic
== END 2024-11-04 12:29 | disposition home or self-care (01) ==
LOC: HO.US 12:28
PROVIDERS: PCP Internal Medicine; Visit Provider Urology
DX: N20.0 Calculus of kidney (principal)
CPT/HCPCS: 76775

== ENCOUNTER → 2024-11-04 12:30 | Outpatient (BNV) | payer OTHER, SELFPAY | PROVIDERS: PCP Internal Medicine; Visit Provider Radiology Vascular & Interventional Radiology | DX: N20.0 Calculus of kidney (principal) | CPT/HCPCS: 76775 ==

== ENCOUNTER 2024-11-18 15:38 | Outpatient (AMB) | payer OTHER, SELFPAY ==
--- NOTE | 2024-11-18 15:35 | MHC.OFFVIS ---
Intake Visit Reasons: ESWL- follow up/US Intake Note: Patient is present for ESWL/US Urology Medication:TAMSULOSIN Antibiotic Allergy:NONE Blood Thinner:NONE Marketing And Outreach Coordinator Required: No Allergies No Known Allergies Allergy (Verified 11/18/24 15:36) HPI Comments Details: Jess is a pleasant female. She is a patient of Dr. Montenegro. She is seen for the following urologic conditions - nephrolithiasis Telemedicine Evaluation 15 min Consultation anfix Angelina Video No stone seen on recent ultrasound Six-month follow-up image Nephrolithiasis Presentation through emergency room Imaging - 07/13 CT 1.3 cm nonobstructing right renal pelvic stone Intervention - 10/14 ESWL [facility] Medical History PCOS (polycystic ovarian syndrome) Vitamin D deficiency Anxiety Post-concussion headache Supervision of normal in second trimester Second trimester Bleeding in early History of 2019 novel coronavirus disease (COVID-19) Less than 8 weeks gestation of Threatened Anemia Surgical History Hx of dilation and curettage (07/20/23) History of surgery Hx of myringotomy H/O tubal ligation Family History Mother Hx of diabetes mellitus Hx of primary hypertension History of hyperthyroidism Father Hx of gastrointestinal disease Substance use disorder Maternal Grandmother No problems noted. Maternal Grandfather Hx of diabetes mellitus Paternal Grandmother No problems noted. Paternal Grandfather No problems noted. Sister Hx of anxiety disorder History of depression Sister History of depression Hx of anxiety disorder Sister Hx of anxiety disorder History of depression Sister History of depression Hx of anxiety disorder Other Mental health disorder Social History Housing: Apartment Alcohol intake: never Patient Tobacco Use Status: Never used Tobacco Tobacco use type: Cigarette e-Cigarette/Vaping Use: Never Used Second Hand Smoke Exposure: No Substance Use Type: Marijuana service: No Current occupational status: employed Cognitive needs: No Hearing needs: No Vision needs: No Female Reproductive History Menstrual Age of Menarche: 12 Review of Systems Const All systems reviewed & are unremarkable except as noted in HPI and below Reports no additional complaints Resp Reports no additional complaints GI Reports no additional complaints Reports as per HPI Musc Reports no additional complaints Physical Exam Telemedicine evaluation Appropriate responses Regular breathing rate and rhythm HEENT Head: Yes normal to inspection Ears: hearing grossly normal bilaterally Eyes General: appearance normal, both eyes and all related structures Neck Neck: Yes normal visual inspection Chest Chest palpation & inspection: normal inspection of the chest Resp Effort & Inspection: normal respiratory effort and able to speak in complete sentences Telehealth Telehealth Telehealth Platform: anfix Location of provider rendering services: practice address Location of patient: address on file Patient Identification confirmed using: Name, : Yes Telehealth method: video Patient verbally consented to treatment: Yes Patient verbally consented to billing insurance company: Yes Patient informed of any privacy concerns related to visit: Yes Minutes spent on Phone/Video with Pt.: 15 Assessment & Plan Assessment & Plan (1) Nephrolithiasis: Code(s): N20.0 - Calculus of kidney Category: Medical Plan Six-month follow-up imaging Orders: Orders Parathyroid Hormone Intact 6 Months N20.0 - Calculus of kidney Phosphorus 6 Months N20.0 - Calculus of kidney Uric Acid 6 Months N20.0 - Calculus of kidney US renal BI 6 Months N20.0 - Calculus of kidney Calcium 6 Months N20.0 - Calculus of kidney Magnesium 6 Months N20.0 - Calculus of kidney Vitamin D 25-OH Total 6 Months N20.0 - Calculus of kidney Patient Instructions: This note is constructed using voice recognition software. While every effort has been made to ensure accuracy consulting manager errors may have been included. Imaging studies, laboratory and physical exam results were discussed and reviewed in detail. No major barriers to patient understanding were identified. An opportunity to ask questions regarding the treatment plan was provided. All questions were answered. The patient expressed understanding and agreement with the above treatment plan. The patient is aware they should contact our office by phone for worsening of their current condition or the appearance of new urologic symptoms. Compliance is encouraged with any medications and followup testing that is ordered. It is a privilege to participate in the urologic care of your patient. If you have any questions or concerns regarding treatment for the above conditions, or other urologic issues, please do not hesitate to contact me. The office telephone contact is [phone]. Sincerely, Dr Cody Eugene MD, [facility] - Urology Compassionate Specialist Care for the Genitourinary System Coding Level of Care Code Tele Est Pt Level 3 (01938) Diagnoses Nephrolithiasis N20.0
--- OUTSIDE RECORDS SUMMARY | 2024-11-18 18:29 | XMS_ITS | Clinical Summary ---
Author Organization [facility] it Address [address] [place] [address] Care Team Providers Care Board Setter Name Role Phone Unavailable Primary Care Provider [...]
== END 2024-11-18 16:13 | disposition home or self-care (01) ==
LOC: HO.HUSH 15:38
PROVIDERS: PCP Internal Medicine; Visit Provider Urology
DX: N20.0 Calculus of kidney (principal)
CPT/HCPCS: 99024

== ENCOUNTER 2025-05-11 12:34 | Outpatient (REF) | payer OTHER, SELFPAY | END 2025-05-11 12:35 | disposition home or self-care (01) | LOC: HO.US 12:34 | PROVIDERS: PCP Internal Medicine; Visit Provider Urology | DX: N20.0 Calculus of kidney (principal) | CPT/HCPCS: 76775 ==

== ENCOUNTER → 2025-05-11 12:36 | Outpatient (BNV) | payer OTHER, SELFPAY | PROVIDERS: PCP Internal Medicine; Visit Provider Radiology Diagnostic Radiology | DX: N20.0 Calculus of kidney (principal) | CPT/HCPCS: 76775 ==

== ENCOUNTER 2025-06-12 15:00 | Outpatient (REF) | payer OTHER, SELFPAY | END 2025-06-12 15:01 | disposition home or self-care (01) | LOC: HO.LNP 15:00 | PROVIDERS: PCP Internal Medicine; Visit Provider Obstetrics & Gynecology | DX: Z01.419 Encounter for gynecological examination (general) (routine) without abnormal findings (principal); L68.0 Hirsutism; R35.0 Frequency of micturition; Z98.51 Tubal ligation status | CPT/HCPCS: 81002; 87086; 99212; 99395 ==

== ENCOUNTER 2025-06-12 15:00 | Outpatient (AMB) | payer OTHER, SELFPAY ==
--- NOTE | 2025-06-12 15:01 | A.OFFVIS_ITS ---
Vital Signs 06/12/25 15:04 Height 5 ft 6.5 in Weight 185 lb BMI 29.4 BP 116/70 Intake Visit Reasons: annual Oil Well Drilling Manager Required: No Information Interpreted: non-clinical & clinical Forensic Artist: Forensic Artist Present (Aby STEWART) Accompanied by: Self / Same As Patient Allergies No Known Allergies Allergy (Verified 06/12/25 15:09) Is last menstrual period known: No (mirena) HPI Comments Details: Presenting for annual exam. The patient is bothered from her hirsutism no abnormal uterine bleeding. The patient in addition is complaining of urinary frequency last 2 weeks, has history of frequent stones under the care of urology, no fever or chills 07/12 the patient had a workup done which showed the following, total testosterone 56, free testosterone 7.2 and 17 hydroxyprogesterone within normal Pelvic ultrasound in 06/11 was within normal, the patient has had Mirena IUD inserted Last Pap/HPV was negative in 11/10 [facility] Medical History PCOS (polycystic ovarian syndrome) Vitamin D deficiency Anxiety Post-concussion headache Supervision of normal in second trimester Second trimester Bleeding in early History of 2019 novel coronavirus disease (COVID-19) Less than 8 weeks gestation of Threatened Anemia Surgical History Hx of dilation and curettage (07/20/23) History of surgery Hx of myringotomy H/O tubal ligation Family History Mother Hx of diabetes mellitus Hx of primary hypertension History of hyperthyroidism Father Hx of gastrointestinal disease Substance use disorder Maternal Grandmother No problems noted. Maternal Grandfather Hx of diabetes mellitus Paternal Grandmother No problems noted. Paternal Grandfather No problems noted. Sister Hx of anxiety disorder History of depression Sister History of depression Hx of anxiety disorder Sister Hx of anxiety disorder History of depression Sister History of depression Hx of anxiety disorder Other Mental health disorder Social History Housing: Apartment Alcohol intake: never Patient Tobacco Use Status: Never used Tobacco Tobacco use type: Cigarette e-Cigarette/Vaping Use: Never Used Second Hand Smoke Exposure: No Substance Use Type: Marijuana service: No Current occupational status: employed Cognitive needs: No Hearing needs: No Vision needs: No Female Reproductive History Menstrual Age of Menarche: 12 control method: progestin IUCD Total pregnancies: 3 Full term: 2 Number of Living Children: 2 Ab spontaneous: 1 Date of last pap smear: 11/09/23 Review of Systems Const All systems reviewed & are unremarkable except as noted in HPI and below Card Reports as per HPI Resp Reports as per HPI GI Reports as per HPI and Reports no additional complaints Reports as per HPI Physical Exam Vital Signs: Last Vital Signs BP 116/70 06/12/25 15:04 BMI result Body Mass Index 29.4 Const General: cooperative, healthy appearing and comfortable Chest Chest palpation & inspection: normal inspection of the chest and normal palpation of entire chest wall Breast/axilla inspection: normal inspection of the breasts and normal inspection of the axillae Breast/axilla palpation: normal palpation of the breasts, normal palpation of the axillae and no axillary lymphadenopathy Resp Effort & Inspection: normal respiratory effort Auscultation: clear to auscultation bilaterally Percussion: percussion normal Cardio Palpation: normal PMI Rate: regular rate Rhythm: regular rhythm Heart sounds: no murmurs and no rubs Peripheral pulses: Peripheral pulses 2+ throughout GI Inspection: Yes normal to inspection Palpation (GI): Soft to palpation, nontender, no guarding, not rigid and No hepatosplenomegaly present Percussion: Yes normal to percussion Auscultation: normal bowel sounds Rectal Exam - Female: deferred General: Yes bladder normal to palpation External Female Exam: No lesion Speculum Exam - Vagina: normal appearance of the vagina, normal palpation, normal vaginal discharge and not erythematous Speculum Exam - Cervix: normal appearance of the cervix, normal palpation and Other cervical findings present (IUD string in place) Bimanual exam- vagina & uterus: normal bimanual exam, normal palpation, uterine size normal, bladder normal to palpation, consistency normal and normal palpation Bimanual Exam- Adnexa, other: normal adnexae, no masses and no tenderness Results AMB Urinalysis Dipstick UR Leukocytes Small Last Edit by Aby Wetzel CMA on 06/12/25 15:34 UR Nitrite Negative Last Edit by Aby Wetzel CMA on 06/12/25 15:34 UR Urobilinogen Normal Last Edit by Aby Wetzel CMA on 06/12/25 15:34 UR Protein 100 Last Edit by Aby Wetzel, ANDREW on 06/12/25 15:34 UR Ph 5.5 Last Edit by Aby Wetzel, ANDREW on 06/12/25 15:34 UR Blood Large Last Edit by Aby Wetzel, ANDREW on 06/12/25 15:34 UR Specific [place] 1.030 Last Edit by Aby Wetzel CMA on 06/12/25 15:34 UR Ketone Negative Last Edit by Aby Wetzel, ANDREW on 06/12/25 15:34 UR Bilirubin Negative Last Edit by Aby Wetzel CMA on 06/12/25 15:34 UR Glucose Negative Last Edit by Aby Wetzel CMA on 06/12/25 15:34 Assessment & Plan Assessment & Plan (1) Well woman exam: Code(s): Z01.419 - Encounter for gynecological examination (general) (routine) without abnormal findings Category: Medical Plan: Cotesting done. Counseled the patient about the recommended dietary allowance of 1000 mg of Calcium & 600 IU of vitamin D. The patient was instructed to perform monthly self-breast exams and to schedule an annual exam in a year; All questions answered and the patient verbalized understanding. Instructed the patient to schedule annual exam in a year (2) Hirsutism: Code(s): L68.0 - Hirsutism Category: Medical Plan: Will repeat testosterone total and free, 17 hydroxyprogesterone and pelvic ultrasound Instructions given the patient is schedule a 2 week follow-up appointment (3) Urinary frequency: Comment: With microscopic hematuria Code(s): R35.0 - Frequency of micturition Category: Medical Plan: Urine dip done in the office showed microscopic hematuria. Will treat with Macrobid 100 mg p.o. b.i.d., send urine for culture and repeat urine dip in 2 weeks. Instructions given to patient to call in case of fever above 100.4, flank pain, nausea or vomiting. If urine dip showed persistent microscopic hematuria will refer to Urology Orders: Orders AMB Urinalysis Dipstick Today R35.0 - Frequency of micturition US pelvic and transvaginal Today L68.0 - Hirsutism Testosterone, Free/Total Today L68.0 - Hirsutism 17 Hydroxyprogesterone Today L68.0 - Hirsutism Urine Culture Today R35.0 - Frequency of micturition Medications: New nitrofurantoin monohyd/m-cryst 100 mg (Macrobid) 100 mg PO BID 10 caps 0RF 5 days Coding Level of Care Code Est Pt Level 3 (85953) Est Pt Prev Care 18-39y(13697) Diagnoses Well woman exam Z01.419 Hirsutism L68.0 Urinary frequency R35.0
[2025-06-12 15:04] VITALS: BP 116/70; BMI 29.4
--- OUTSIDE RECORDS SUMMARY | 2025-06-12 16:40 | XMS_ITS | Clinical Summary ---
Author Organization [facility] Address [address] [place] [address] Phone Care Team Providers Care Desktop Manager Name Role Phone Venkata Atkinson MD Primary Care Provider [phone] Allergies No known active allergies Medications No known medications Social History Tobacco Use Types Packs/Day Years Used Date Smoking Tobacco: Never Smokeless Tobacco: Never Alcohol Use Standard Drinks/Week Comments Not Currently 0 (1 standard drink = 0.6 oz pur e alcohol) Education Answer Date Recorded Are you interested in more education? Not on gloria e 12/15/2022 Are you concerned about learning? Not on file 12/15/2022 No 12/15/2022 No 12/15/2022 Digital Access Answer Date Recorded No 01/13/2023 No 01/13/2023 No 01/13/2023 Reliable internet access at home? Not on file 01/13/2023 Device with a working camera? Not on file Comments Unknown Sex and Gender Information Value Date Recorded Sex Assigned at Female 08/27/2019 12:05 AM EST Legal Sex Female 11:17 PM EST Gender Identity Female 08/27/2019 12:05 AM EST Sexual Orientation Straight 08/27/2019 12 :05 AM EST Last Filed Vital Signs Vital Sign Reading Time Taken Comments Blood Pressure 113/91 03/01/2020 11:19 PM EDT Pulse 72 03/01/2020 11:19 PM EDT Temperature 37.2 C (98.9 F) 03/01/2020 11:19 PM EDT Respiratory Rate 18 03/01/2020 11:19 PM EDT Oxygen Saturation 99% 03/01/2020 11:19 PM EDT Inhaled Oxygen Concentration - - Weight 83.5 kg (184 lb) 03/01/2020 11:19 PM EDT Height 167.6 cm (5' 6 ) 03/01/2020 11:19 PM EDT Body Mass Index 29.7 03/01/2020 11:19 PM EDT Plan of Treatment Health Maintenance Due Date Last Done Comments Adult Td,Tdap Booster 1992 DEPRESSION SCREENING 2004 HEPATITIS C SCREENING 2010 HIV ONE-TIME SCREENING (18-6 5 YEARS) 2010 PAP SMEAR 2013 SMOKING STATUS SCREENING (On ce After 26 Yrs) 2018 INFLUENZA VACCINE (#1) 2025 07/29/2020 COVID-19 VACCINE (3 2024-2 6 season) 2025 10/10/2021, 09/12/2021 HEPATITIS A VACCINES Aged Out No long er eligible based on patient's age to complete this topic HIB VACCINES Aged Out No longer eligi ble based on patient's age to complete this topic MENINGOCOCCAL VACCINES (ACWY) Aged Out No longer eligible based on patient's age to complete this topic MENINGOCOCCAL VACCINES (B) Aged Out N o longer eligible based on patient's age to complete this topic PNEUMOCOCCAL VACCINES (0-49 years) Aged Out No longer eligible b ased on patient's age to complete this topic Medical Devices Not on file Care Teams Desktop Manager Relationship Specialty Start Date End Date Venkata Atkinson MD [address] [place] [address] [place] [address] PCP - General Internal Medicine 08/26/19 Additional Source Comments The information contained in this document represents components of the legal health record. It is not the complete legal health record.[facility]
--- OUTSIDE RECORDS SUMMARY | 2025-06-12 16:40 | XMS_ITS | Clinical Summary ---
Author Organization [facility] it Address [address] [place] [address] Care Team Providers Care Bushel Girl Name Role Phone Unavailable Primary Care Provider [...] Cervical Cancer Screening: P ap Smear 2013 HPV Vaccines (1 - 3-dose SCD M series) 2019 Depression Screening 08/20/2024 COVID-19 Vaccine ( - 2023-2 5 season) 2025 Influenza Vaccine (#1) 2025 RSV Immunization Adult Patie nts (1 - 1-dose 75+ series) 2067 HIB Vaccines Aged Out No longer eligi [...] age to complete this topic Meningococcal B Vaccine Aged Out No l onger eligible based on patient's age to complete this topic Pneumococcal Vaccine: Pediat rics (0 to 5 Years) and At-Risk Patients (6 to 49 Years) Aged Out No longer eligible b ased on patient's age to complete this topic RSV Immunization Patients Un leora 20 months Aged Out No longer eligible b ased on patient's age to complete this topic Varicella Vaccines Aged Out No longer eligible based on patient's age to complete this topic
== END 2025-06-12 15:56 | disposition home or self-care (01) ==
LOC: HO.HWS 15:01
PROVIDERS: PCP Internal Medicine; Visit Provider Obstetrics & Gynecology
DX: Z01.419 Encounter for gynecological examination (general) (routine) without abnormal findings (principal); L68.0 Hirsutism; R35.0 Frequency of micturition
CPT/HCPCS: 99213; 99395; 99459

== ENCOUNTER 2025-06-16 15:18 | Outpatient (REF) | payer OTHER, SELFPAY ==
[2025-06-16 16:46] LABS: Calcium 9.2 mg/dL (8.4-10.2); Magnesium 1.8 mg/dL (1.6-2.6); Uric Acid 6.6 mg/dL (2.4-5.7)
[2025-06-16 17:12] LABS: Parathyroid Hormone Intact 119.1 pg/mL (8.7-77.1)
--- OUTSIDE RECORDS SUMMARY | 2025-06-16 19:44 | XMS_ITS | Clinical Summary ---
Author Organization [facility] Address [address] [place] [phone] Phone Care Team Providers Care Claim Processing Specialist Name Role Phone Venkata Atkinson MD Primary Care Provider [phone] Allergies No known active allergies Medications No [...] Medical Devices Not on file Care Teams Claim Processing Specialist Relationship Specialty Start Date End Date Venkata Atkinson MD [address] [place] [address] [place] [address] PCP - General Internal Medicine 08/26/19 Additional Source Comments The information contained in this document represents components of the legal health record. It is not the complete legal health record.[facility]
--- OUTSIDE RECORDS SUMMARY | 2025-06-16 19:44 | XMS_ITS | Clinical Summary ---
Author Organization [facility] it Address [address] [place] [address] Care Team Providers Care Carpenter Apprentice Name Role Phone Unavailable Primary Care Provider [...]
== END 2025-06-16 15:19 | disposition home or self-care (01) ==
LOC: HO.LAB 15:18
PROVIDERS: Urology; PCP Internal Medicine; Visit Provider Obstetrics & Gynecology
DX: N20.0 Calculus of kidney (principal); L68.0 Hirsutism
CPT/HCPCS: 36415; 82306; 82310; 83498; 83735; 83970; 84100; 84402; 84403; 84550

== ENCOUNTER 2025-06-25 15:02 | Outpatient (REF) | payer OTHER, SELFPAY ==
--- NOTE | ~2025-06-25 | US_ITS ---
EXAMINATION: US PELVIS CLINICAL INFORMATION: L68.0 - Hirsutism COMPARISON: None available. TECHNIQUE: Ultrasound of the pelvis is performed using both transabdominal and transvaginal transducers along with Doppler. Transvaginal imaging is performed due to inadequate visualization transabdominally. FINDINGS: Uterus: The uterus is flexed and measures 8.9 x 3.0 x 4.9 cm. The double wall endometrial thickness is 7 mm. This is mostly cystic area in the endometrium. IUD is present in the upper uterine canal. The uterus is smooth in contour and has normal myometrial echogenicity. No visible fibroid. Adnexa: Both ovaries are visualized. There is normal color flow to the adnexa. There is no ovarian torsion. There is no pelvic ascites or fluid collection. Right ovary measures 3.9 x 2.1 x 3.2 cm. There is a 2.1 cm anechoic cyst in the right ovary consistent with a dominant follicle. Liver volume measures 14 mm. Left ovary measures 4.4 x 2.8 x 2.0 cm. There are numerous small peripheral follicles in the ovary volume was 14 mm. US/US pelvic and transvaginal IMPRESSION: IUD is present in the upper uterine canal. Ovaries size and appearance raises question of underlying polycystic ovarian syndrome. Electronically signed by: Gautam Sanchez MD 06/25/2025 04:20 PM JUAN J
--- OUTSIDE RECORDS SUMMARY | 2025-06-25 18:07 | XMS_ITS | Clinical Summary ---
Author Organization [facility] Address [address] [place] [address] Phone Care Team Providers Care Hemstitching Machine Operator Name Role Phone Venkata Atkinson MD Primary Care Provider [phone] Allergies No known active allergies Medications No [...] Medical Devices Not on file Care Teams Hemstitching Machine Operator Relationship Specialty Start Date End Date Venkata Atkinson MD [address] [place] [address] [place] [address] PCP - General Internal Medicine 08/26/19 Additional Source Comments The information contained in this document represents components of the legal health record. It is not the complete legal health record.[facility]
--- OUTSIDE RECORDS SUMMARY | 2025-06-25 18:07 | XMS_ITS | Clinical Summary ---
Author Organization [facility] it Address [address] [place] [address] Care Team Providers Care Chief Scientific Officer Name Role Phone Unavailable Primary Care Provider [...]
== END 2025-06-25 15:03 | disposition home or self-care (01) ==
LOC: HO.US 15:02
PROVIDERS: PCP Internal Medicine; Visit Provider Obstetrics & Gynecology
DX: L68.0 Hirsutism (principal)
CPT/HCPCS: 76830; 76856

== ENCOUNTER → 2025-06-25 15:03 | Outpatient (BNV) | payer OTHER, SELFPAY | PROVIDERS: PCP Internal Medicine; Visit Provider Radiology Diagnostic Radiology | DX: N83.01 Follicular cyst of right ovary (principal); Z97.5 Presence of (intrauterine) contraceptive device | CPT/HCPCS: 76830; 76856 ==

== ENCOUNTER 2025-07-15 12:12 | Outpatient (AMB) | payer OTHER, SELFPAY ==
--- NOTE | 2025-07-15 12:12 | MHC.OFFVIS ---
Intake Visit Reasons: Ultrasound follow up Allergies No Known Allergies Allergy (Verified 06/12/25 15:09) HPI Comments Details: The patient is schedule telehealth visit to discuss the results of her androgen levels and ultrasound. Last visit urine dip showed microscopic hematuria, urine culture was negative Total testosterone was 75, free testosterone not performed, 17 hydroxyprogesterone within normal Pelvic ultrasound done on 06/25/2025 showed the following: IMPRESSION: IUD is present in the upper uterine canal. Ovaries size and appearance raises question of underlying polycystic ovarian syndrome. [facility] Medical History PCOS (polycystic ovarian syndrome) Vitamin D deficiency Anxiety Post-concussion headache Supervision of normal in second trimester Second trimester Bleeding in early History of 2019 novel coronavirus disease (COVID-19) Less than 8 weeks gestation of Threatened Anemia Surgical History Hx of dilation and curettage (07/20/23) History of surgery Hx of myringotomy H/O tubal ligation Family History Mother Hx of diabetes mellitus Hx of primary hypertension History of hyperthyroidism Father Hx of gastrointestinal disease Substance use disorder Maternal Grandmother No problems noted. Maternal Grandfather Hx of diabetes mellitus Paternal Grandmother No problems noted. Paternal Grandfather No problems noted. Sister Hx of anxiety disorder History of depression Sister History of depression Hx of anxiety disorder Sister Hx of anxiety disorder History of depression Sister History of depression Hx of anxiety disorder Other Mental health disorder Social History Housing: Apartment Alcohol intake: never Patient Tobacco Use Status: Never used Tobacco Tobacco use type: Cigarette e-Cigarette/Vaping Use: Never Used Second Hand Smoke Exposure: No Substance Use Type: Marijuana service: No Current occupational status: employed Cognitive needs: No Hearing needs: No Vision needs: No Female Reproductive History Menstrual Age of Menarche: 12 Review of Systems Const All systems reviewed & are unremarkable except as noted in HPI and below Reports as per HPI and Reports no additional complaints GI Reports no additional complaints Reports no additional complaints Telehealth Telehealth Telehealth Platform: [facility] Location of provider rendering services: practice address Location of patient: address on file Patient Identification confirmed using: Name, : Yes Telehealth method: video Patient verbally consented to treatment: Yes Patient verbally consented to billing insurance company: Yes Patient informed of any privacy concerns related to visit: Yes Minutes spent on Phone/Video with Pt.: 3 Assessment & Plan Assessment & Plan (1) PCOS (polycystic ovarian syndrome): Comment: Hirsutism Code(s): E28.2 - Polycystic ovarian syndrome Category: Medical Plan: Discussed with the patient diagnose polycystic ovarian syndrome. The patient has tried control pills in the past and had irregular menstrual cycles on control pills, that is when Mirena IUD was inserted, will refer the patient to Reproductive Endocrinology for hirsutism treatment. Instructed the patient to call our office back in case a referral appointment is not scheduled, missed or canceled so that we will assist on rescheduling another appointment, the patient verbalized understanding agreed with the plan. I spent a total of 20 minutes reviewing the chart, talking to the patient via video and documenting in the medical record. (2) Urinary frequency: Comment: With microscopic hematuria Code(s): R35.0 - Frequency of micturition Category: Medical Plan: Recommended the patient to schedule visit within 1-2 weeks for repeat urine dip since last urine dip showed microscopic hematuria, urine culture was negative Orders: Referrals Reproductive Endocrinology L68.0 - Hirsutism Coding Level of Care Code Tele Est Pt Level 3 (65919) Diagnoses PCOS (polycystic ovarian syndrome) E28.2 Urinary frequency R35.0
--- OUTSIDE RECORDS SUMMARY | 2025-07-15 15:15 | XMS_ITS | Clinical Summary ---
Author Organization [facility] Address [address] [place] [address] Phone Care Team Providers Care Prevention Rn Name Role Phone Venkata Atkinson MD Primary Care Provider [phone] Allergies No known active allergies Medications No [...] Medical Devices Not on file Care Teams Prevention Rn Relationship Specialty Start Date End Date Venkata Atkinson MD [address] [place] [address] [place] [address] PCP - General Internal Medicine 08/26/19 Additional Source Comments The information contained in this document represents components of the legal health record. It is not the complete legal health record.[facility]
--- OUTSIDE RECORDS SUMMARY | 2025-07-15 15:15 | XMS_ITS | Clinical Summary ---
Author Organization [facility] it Address [address] [place] [address] Care Team Providers Care Bias Cutter Helper Name Role Phone Unavailable Primary Care Provider [...] series) 2019 Depression Screening 08/20/2024 COVID-19 Vaccine (1 - 2024-2 6 season) 2025 Influenza Vaccine (#1) 2025 RSV [...]
== END 2025-07-15 12:23 | disposition home or self-care (01) ==
LOC: HO.HWS 12:12
PROVIDERS: PCP Internal Medicine; Visit Provider Obstetrics & Gynecology
DX: E28.2 Polycystic ovarian syndrome (principal); R35.0 Frequency of micturition
CPT/HCPCS: 99213

== ENCOUNTER 2025-08-11 14:01 | Outpatient (AMB) | payer OTHER, SELFPAY ==
--- NOTE | 2025-08-11 14:12 | MHC.OFFVIS ---
Vital Signs 08/11/25 14:18 Height 5 ft 6.5 in Weight 183 lb BMI 29.1 BP 124/82 Intake Visit Reasons: Urine Dip Distance Learning Unit Leader Required: No Information Interpreted: non-clinical & clinical Accompanied by: Self / Same As Patient Allergies No Known Allergies Allergy (Verified 06/12/25 15:09) Is last menstrual period known: No (mirena) HPI Comments Details: Presenting for repeat urine dip. Last visit urine dip showed microscopic hematuria. Urine culture was negative [facility] Medical History PCOS (polycystic ovarian syndrome) Vitamin D deficiency Anxiety Post-concussion headache Supervision of normal in second trimester Second trimester Bleeding in early History of 2019 novel coronavirus disease (COVID-19) Less than 8 weeks gestation of Threatened Anemia Surgical History Hx of dilation and curettage (07/20/23) History of surgery Hx of myringotomy H/O tubal ligation Family History Mother Hx of diabetes mellitus Hx of primary hypertension History of hyperthyroidism Father Hx of gastrointestinal disease Substance use disorder Maternal Grandmother No problems noted. Maternal Grandfather Hx of diabetes mellitus Paternal Grandmother No problems noted. Paternal Grandfather No problems noted. Sister Hx of anxiety disorder History of depression Sister History of depression Hx of anxiety disorder Sister Hx of anxiety disorder History of depression Sister History of depression Hx of anxiety disorder Other Mental health disorder Social History Housing: Apartment Alcohol intake: never Patient Tobacco Use Status: Never used Tobacco Tobacco use type: Cigarette e-Cigarette/Vaping Use: Never Used Second Hand Smoke Exposure: No Substance Use Type: Marijuana service: No Current occupational status: employed Cognitive needs: No Hearing needs: No Vision needs: No Female Reproductive History Menstrual Age of Menarche: 12 Review of Systems Const All systems reviewed & are unremarkable except as noted in HPI and below Reports as per HPI and Reports no additional complaints GI Reports no additional complaints Reports no additional complaints Assessment & Plan Assessment & Plan (1) Microscopic hematuria: Code(s): R31.29 - Other microscopic hematuria Category: Medical Plan: Repeat urine dip showed no evidence of microscopic hematuria, the patient was reassured. All questions answered, the patient verbalized understanding Coding Level of Care Code Est Pt Level 3 (49821) Diagnoses Microscopic hematuria R31.29
[2025-08-11 14:18] VITALS: BP 124/82; BMI 29.1
--- OUTSIDE RECORDS SUMMARY | 2025-08-11 15:16 | XMS_ITS | Clinical Summary ---
Author Organization [facility] Address [address] [place] [address] Phone Care Team Providers Care Customer Solutions Representative Name Role Phone Venkata Atkinson MD Primary Care Provider [phone] Allergies No known active allergies Medications No [...] Medical Devices Not on file Care Teams Customer Solutions Representative Relationship Specialty Start Date End Date Venkata Atkinson MD [address] [place] [address] [place] [address] PCP - General Internal Medicine 08/26/19 Additional Source Comments The information contained in this document represents components of the legal health record. It is not the complete legal health record.[facility]
--- OUTSIDE RECORDS SUMMARY | 2025-08-11 15:16 | XMS_ITS | Clinical Summary ---
Author Organization [facility] it Address [address] [place] [address] Care Team Providers Care Channel Manager Name Role Phone Unavailable Primary Care Provider [...]
== END 2025-08-11 14:40 | disposition home or self-care (01) ==
LOC: HO.HWS 14:02
PROVIDERS: PCP Internal Medicine; Visit Provider Obstetrics & Gynecology
DX: R31.29 Other microscopic hematuria (principal)
CPT/HCPCS: 99213

== ENCOUNTER → 2025-08-11 14:01 | Outpatient (BNVA) | payer OTHER, SELFPAY | PROVIDERS: PCP Internal Medicine; Visit Provider Obstetrics & Gynecology | DX: R31.29 Other microscopic hematuria (principal) | CPT/HCPCS: 99212 ==